=== PATIENT | male | born 1945 | race American Indian/Alaskan Native ===

== ENCOUNTER 2016-12-09 16:53 | Inpatient (IN) | payer MEDICARE ==
[2016-12-09 17:40] LABS: Basophils % (Auto) 0.6 % (0.0-1.8); Eosinophils % (Auto) 1.5 % (0.0-4.3); Hematocrit 36.3 % (35.5-45.6); Hemoglobin 11.6 gm/dl (11.8-15.2); Mean Corpuscular HGB Conc 32 % (32-34); Mean Corpuscular Hemoglobin 27 pg (28-32); Mean Corpuscular Volume 84 fl (84-94); Platelet Count 378 K/mm3 (140-440); Red Blood Count 4.32 M/mm3 (3.65-5.03); Red Cell Distribution Width 14.6 % (13.2-15.2); White Blood Count 17.1 K/mm3 (4.5-11.0)
[2016-12-09 17:51] LABS: INR 1.51 (0.87-1.13); Partial Thromboplastin Time 34.2 Sec. (24.2-36.6)
[2016-12-09 18:02] LABS: Alanine Aminotransferase 24 units/L (7-56); Albumin 2.9 g/dL (3.9-5); Albumin/Globulin Ratio 0.6 %; Alkaline Phosphatase 162 units/L (35-129); Anion Gap 16 mmol/L; Blood Urea Nitrogen 18 mg/dL (9-20); Calcium 8.9 mg/dL (8.4-10.2); Carbon Dioxide 29 mmol/L (22-30); Chloride 98.6 mmol/L (98-107); Glucose 109 mg/dL (75-100); Lipase 5 units/L (13-60); Potassium 4.5 mmol/L (3.6-5.0); Sodium 139 mmol/L (137-145); Total Protein 7.4 g/dL (6.3-8.2)
[2016-12-09 18:22] LABS: Cholesterol 130 mg/dL (50-199); HDL Cholesterol 33 mg/dL (40-59); LDL Cholesterol,Direct 85 mg/dL (50-130); Triglycerides 63 mg/dL (2-149)
[2016-12-09] MEDS ORDERED: BABY ASPIRIN PO ONE (20:00)
--- NOTE | 2016-12-09 20:00 | Emergency Department Report ---
HPI - General Chief Complaint: Dyspnea/Respdistress Time Seen by Provider: 12/09/16 19:54 - HPI HPI: The patient is a 71-year-old male who presents for evaluation of chest pain. The patient reports chest pain since earlier this morning, greater than 8 hours prior to my evaluation, midsternal in location, pressure-like in quality, moderate severity, constant since onset. The patient also reports shortness of breath bilateral lower leg swelling for the past one day. The patient denies fever, cough, hemoptysis, unilateral leg swelling, recent immobilization, history of DVT or PE. ED Past Medical Hx - Past Medical History Hx Hypertension: Yes Hx Congestive Heart Failure: Yes Hx Diabetes: Yes - Surgical History Past Surgical History?: No - Social History Smoking Status: Never Smoker Substance Use Type: None - Medications Home Medications: Home Medications Medication Instructions Recorded Confirmed Last Taken Type Aspirin [Aspirin BABY CHEW TAB] 81 mg PO QDAY #30 tab.chew 11/30/16 12/09/16 Rx Furosemide [Lasix TAB] 40 mg PO QDAY #30 tablet 11/30/16 12/09/16 12/08/16 Rx Metoprolol [Lopressor TAB] 12.5 mg PO BID #60 tablet 11/30/16 12/09/16 12/08/16 Rx Valsartan [Diovan] 160 mg PO DAILY #30 tablet 11/30/16 12/09/16 12/08/16 Rx Insulin NPH, Human [NovoLIN N] 10 units SQ QDAY 12/09/16 12/09/16 Unknown History ED Review of Systems ROS: Stated complaint: RENÉE Other details as noted in HPI Constitutional: denies: fever ENT: denies: throat or neck pain Respiratory: denies: cough reports shortness of breath Cardiovascular: reports chest pain Endocrine: denies unexplained weight loss or gain Gastrointestinal: denies: abdominal pain, nausea Genitourinary: denies: dysuria Musculoskeletal: denies: leg swelling Skin: denies: rash Neurological: denies: headache Hematological/Lymphatic: denies: easy bleeding or easy bruising Psych: denies sadness or hopelessness Physical Exam - Physical Exam Vital Signs: Vital Signs 12/09/16 12/09/16 12/09/16 16:57 18:07 18:30 Temperature 98.8 F Pulse Rate 85 80 Respiratory 18 16 10 L Rate Blood Pressure 186/87 141/72 O2 Sat by Pulse 96 96 Oximetry 12/09/16 19:01 Temperature Pulse Rate 78 Respiratory 21 Rate Blood Pressure 157/73 O2 Sat by Pulse 96 Oximetry Physical Exam: General: well-nourished, well-developed, no acute distress Head: Normocephalic, atraumatic Eyes: normal sclera ENT: Mucous membranes are pink and moist Neck: trachea midline, neck supple, No neck stiffness, no cervical adenopathy Respiratory: Breath sounds equal bilaterally, no wheezing, rales, or rhonchi Cardio: S1 and S2 present, no murmurs, rubs, gallops, capillary refill is brisk Abdomen: Normoactive bowel sounds, soft abdomen, no rigidity, no guarding or rebound tenderness Chest WALL/Back: No tenderness to palpation of the chest wall, no CVA tenderness with percussion Musc: 2+ pitting edema of bilateral lower legs Skin: No rash Neuro: no facial drooping, normal speech Psych: Normal affect ED Course Vital Signs 12/09/16 12/09/16 12/09/16 16:57 18:07 18:30 Temperature 98.8 F Pulse Rate 85 80 Respiratory 18 16 10 L Rate Blood Pressure 186/87 141/72 O2 Sat by Pulse 96 96 Oximetry 12/09/16 19:01 Temperature Pulse Rate 78 Respiratory 21 Rate Blood Pressure 157/73 O2 Sat by Pulse 96 Oximetry ED Medical Decision Making - Lab Data Result diagrams: 12/09/16 17:25 12/09/16 17:25 - Medical Decision Making The patient was seen and examined by myself. The patient is placed on a court monitor and continuous pulse ox. On initial evaluation, the patient was found to be in no distress. EKG was negative for findings suggestive of acute cardiac infarct. The patient is given IV Lasix for fluid overload and IV morphine for his pain. Labs and imaging are obtained. Chest x-ray is negative for pneumothorax, focal consolidation, pulmonary vascular congestion, pleural effusion, or other obvious acute cardiopulmonary disease process. Lab results revealed elevated troponin level 0.16, with normal renal function, and elevated BNP at 3600, trending up from previous elevated BNP. The patient is given a tablet of aspirin. The patient was reevaluated and reported that their symptoms were improved. As the patient has chest pain and risk factors for development of acute coronary event, the patient will be admitted for close cardiopulmonary monitoring, serial troponins, and evaluation by cardiology. The on-call hospitalist service was contacted. They agreed to admit the patient for further treatment and close monitoring. The ED admit order was placed. The patient was admitted in guarded condition. Critical care attestation.: If time is entered above; I have spent that time in minutes in the direct care of this critically ill patient, excluding procedure time. ED Disposition Clinical Impression: Elevated troponin I level, Acute chest pain, Leg swelling, Chronic acquired lymphedema, Peripheral edema Disposition: 09 OP ADMIT IP TO THIS HOSP Is pt being admited?: Yes Does the pt Need Aspirin: Yes Condition: Fair Time of Disposition: 19:59
[2016-12-09] MEDS ORDERED: NACL ONE (20:17)
--- NOTE | 2016-12-09 22:08 | XRay Report ---
FINAL REPORT EXAM: XR CHEST ROUTINE 2V HISTORY: Dyspnea TECHNIQUE: PA and lateral chest radiographs PRIORS: None. FINDINGS: No mediastinal shift. Cardiomegaly. Ill-defined right lower lung opacity. No pneumothorax or effusion. No acute skeletal finding. IMPRESSION: Ill-defined right lower lung opacity may represent atelectasis or infection. Mild cardiomegaly. Correlation for clinical findings of heart failure is requested.
[2016-12-09] MEDS ORDERED: MORPHINE IV ONE (22:18)
[2016-12-09] MEDS ORDERED: LASIX IV ONE (22:18)
[2016-12-09] MEDS ORDERED: ZOFRAN IV PRN (23:46)
[2016-12-09] MEDS ORDERED: MILK OF MAGNESIA PO PRN (23:46)
[2016-12-09] MEDS ORDERED: DULCOLAX PR PRN (23:46)
[2016-12-09] MEDS ORDERED: TYLENOL PO PRN (23:46)
--- NOTE | 2016-12-09 23:48 | History and Physical Report ---
History of Present Illness Date of examination: 12/09/16 History of present illness: 70 year old man with Hypertension, Diabetes, chroniv lymphedema comes to the emergency room with complaints of shortness of breath, PND, orthopnea that started today. The patient was dischrged on monday. Also complaining of chest pain located in the epigastric area, sharp, intermittent for 5 minutes, intensity 5/10, no radiation, he cannot identify exacerbating or relieving factors. Denies diaphoresis, palpitation, admits to nausea review of systems Constitutional: no fever, no chills, no weight loss Ears, eyes, nose, mouth and throat: no nasal congestion, no nasal discharge, no sinus pressure, no vision change, no red eye. Neck: No neck pain or rigidity. Cardiovascular: no palpitations, +leg swelling Respiratory: No cough, no congestion, no wheezing Gastrointestinal: abdominal pain, hematochezia, no nausea, no vomiting Genitourinary : no dysuria, frequency , no hematuria Musculoskeletal: no joint swelling or muscle ache Integumentary: no rash, no pruritis Neurological: no parathesias, no numbness, no focal weakness Endocrine: no cold or heat intolerance, no polyuria or polydipsia Hematologic/Lymphatic: no easy bruising, no easy bleeding, no gland swelling Allergic/Immunologic: no urticaria, no angioedema. PAST SURGICAL HISTORY:None SOCIAL HISTORY:Denies alcohol, tobacco, drugs FAMILY HISTORY:Hypertension Medications and Allergies Allergies Allergy/AdvReac Type Severity Reaction Status Date / Time No Known Allergies Allergy Unverified 11/27/16 23:04 Home Medications Medication Instructions Recorded Confirmed Last Taken Type Aspirin [Aspirin BABY CHEW TAB] 81 mg PO QDAY #30 tab.chew 11/30/16 12/09/16 Rx Furosemide [Lasix TAB] 40 mg PO QDAY #30 tablet 11/30/16 12/09/16 12/08/16 Rx Metoprolol [Lopressor TAB] 12.5 mg PO BID #60 tablet 11/30/16 12/09/16 12/08/16 Rx Valsartan [Diovan] 160 mg PO DAILY #30 tablet 11/30/16 12/09/16 12/08/16 Rx Insulin NPH, Human [NovoLIN N] 10 units SQ QDAY 12/09/16 12/09/16 Unknown History Exam - Physical Exam Narrative exam: Gen. appearance: Patient lying in bed, no apparent distress HEENT: Normocephalic, atraumatic, pupils equally round and reactive to light, extraocular movement intact, and no sclericterus,. No JVD or thyromegaly or nodule,neck supple, no carotid bruit ,mucous membranes moist, no exudate or erythema Heart: S1, S2, regular rate and rhythm Lungs: Clear bilaterally, breathing comfortable Abdomen: Positive bowel sounds, nontender, nondistended, no organomegaly Extremity: + edema, no cyanosis, clubbing Skin: No rash, nodules, warm, dry Neuro: Oriented 3, cranial nerves II-12 intact, speech is fluent, motor and sensory intact - Constitutional Vitals: Temp Pulse Resp BP Pulse Ox 98.8 F 88 17 184/80 95 12/09/16 16:57 12/09/16 22:01 12/09/16 22:01 12/09/16 23:01 12/09/16 23:01 Results - Labs CBC & Chem 7: 12/10/16 04:41 12/09/16 17:25 Labs: Abnormal lab results 12/09/16 12/09/16 12/09/16 Range/Units 17:25 17:25 17:25 WBC 17.1 H (4.5-11.0) K/mm3 Hgb 11.6 L (11.8-15.2) gm/dl MCH 27 L (28-32) pg Lymph % (Auto) 8.3 L (13.4-35.0) % [place] # 1.0 H (0.0-0.8) K/mm3 Seg Neutrophils % 83.7 H (40.0-70.0) % Seg Neutrophils # 14.3 H (1.8-7.7) K/mm3 PT 18.2 H (12.2-14.9) Sec. INR 1.51 H (0.87-1.13) D-Dimer 622.72 H (0-234) ng/mlDDU Glucose 109 H (75-100) mg/dL Alkaline Phosphatase 162 H (35-129) units/L Troponin T 0.167 H* (0.00-0.029) ng/mL NT-Pro-B Natriuret Pep (0-900) pg/mL Albumin 2.9 L (3.9-5) g/dL HDL Cholesterol 33 L (40-59) mg/dL Lipase 5 L (13-60) units/L // Range/Units 17:25 WBC (4.5-11.0) K/mm3 Hgb (11.8-15.2) gm/dl MCH (28-32) pg Lymph % (Auto) (13.4-35.0) % [place] # (0.0-0.8) K/mm3 Seg Neutrophils % (40.0-70.0) % Seg Neutrophils # (1.8-7.7) K/mm3 PT (12.2-14.9) Sec. INR (0.87-1.13) D-Dimer (0-234) ng/mlDDU Glucose (75-100) mg/dL Alkaline Phosphatase (35-129) units/L Troponin T (0.00-0.029) ng/mL NT-Pro-B Natriuret Pep 3789 H (0-900) pg/mL Albumin (3.9-5) g/dL HDL Cholesterol (40-59) mg/dL Lipase (13-60) units/L - Imaging and Cardiology EKG: image reviewed Chest x-ray: image reviewed Assessment and Plan Shortness of breath, unclear etiology Chest paim Leukocytosis Hypertension Diabetes Admit to medicine Check cardiac enzymes,Consult cardiology CT chest pending, check stess test if CT negative obtain blood culture, urinalysis Check fingersticks and initiate insulin sliding scale continue outpatient medications , start dvt prophalaxis Please follow CT chest
[2016-12-10] MEDS ORDERED: BABY ASPIRIN ONE (00:14)
[2016-12-10 05:58] LABS: Basophils % (Auto) 0.5 % (0.0-1.8); Eosinophils % (Auto) 2.3 % (0.0-4.3); Hematocrit 33.3 % (35.5-45.6); Hemoglobin 10.8 gm/dl (11.8-15.2); Mean Corpuscular HGB Conc 32 % (32-34); Mean Corpuscular Hemoglobin 27 pg (28-32); Mean Corpuscular Volume 83 fl (84-94); Platelet Count 351 K/mm3 (140-440); Red Blood Count 3.99 M/mm3 (3.65-5.03); Red Cell Distribution Width 14.8 % (13.2-15.2); White Blood Count 14.1 K/mm3 (4.5-11.0)
[2016-12-10 06:08] LABS: Bilirubin,Urine NEG (Negative); Blood,Urine SM (Negative); Ketones,Urine NEG (Negative); Leukocyte Esterase,Urine TR (Negative); Nitrite,Urine NEG (Negative); Protein,Urine <15 mg/dL mg/dL (Negative); Urobilinogen,Urine < 2.0 mg/dL (<2.0)
[2016-12-10] MEDS: LASIX IV SCH ×2 (06:21→18:12)
[2016-12-10 06:40] LABS: Anion Gap 16 mmol/L; Blood Urea Nitrogen 18 mg/dL (9-20); Calcium 8.7 mg/dL (8.4-10.2); Carbon Dioxide 30 mmol/L (22-30); Chloride 100.2 mmol/L (98-107); Glucose 91 mg/dL (75-100); Potassium 4.3 mmol/L (3.6-5.0); Sodium 142 mmol/L (137-145)
[2016-12-10] MEDS: LOVENOX SUB-Q SCH ×2 (08:35→16:38)
[2016-12-10] MEDS: ZESTRIL PO SCH ×2 (08:36→16:38)
[2016-12-10] MEDS: COREG PO SCH ×3 (08:37→21:51)
--- NOTE | 2016-12-10 09:01 | Cat Scan Report ---
FINAL REPORT PROCEDURE: CT ANGIO CHEST TECHNIQUE: Computerized tomographic angiography of the chest was performed after the IV injection of iodinated nonionic contrast including image processing. The image data was postprocessed using 2-dimensional multiplanar reformatted (MPR) and 3-dimensional (MIP and/or volume rendered) techniques. HISTORY: chest pain COMPARISON: Chest x-ray 12/09/2016 FINDINGS: Enlarged heterogeneous thyroid gland canal on the right. Recommend thyroid ultrasound correlation. Extension of the thyromegaly into the anterior superior mediastinum. Heart and pericardium: Normal. Thoracic aorta: Normal. Pulmonary vasculature: Normal. Lymph nodes: Scattered mild lymphadenopathy in the mediastinum and hilar areas measuring 1 x 2 centimeters in the right suprahilar area left pretracheal and subcarinal regions Lungs: Mild pulmonary emphysema with lower lung zone fibrosis and or slight atelectatic change left greater than right Pleural space: No effusion, thickening, or pneumothorax. Musculoskeletal structures: No significant abnormality. Degenerative changes thoracic spine Upper abdominal structures: Diffuse fatty infiltration of liver. Small hiatal hernia. Diffuse pancreatic atrophy. Mild stranding around the left kidney, indeterminate. IMPRESSION: No evidence of PE seen at this time Details above Followup is advised
--- NOTE | 2016-12-10 11:49 | Consultation ---
History of Present Illness Consult date: 12/10/16 Consult reason: shortness of breath History of present illness: Patient's a 71-year-old man who presents to the hospital with shortness of breath and weakness. There was no chest pain. His symptoms are poorly characterized. In the hospital, his serial ECGs are normal sinus rhythm, normal ECG with no ischemic changes. Cardiac enzymes are equivocal, with normal CK and CK-MB but borderline troponin increase. It'll be recalled that he was hospitalized here 2 weeks ago, with chronic edema of bilateral lower extremities and uncontrolled hypertension. On this presentation, his blood pressure remains uncontrolled 170-180 systolic, but his lower extremity edema has completely resolved. Echocardiogram 2 weeks ago revealed normal left ventricle systolic function, ejection fraction 55-60%. Currently the patient is on the telemetry floor, looks and feels comfortable and no cardiac complaints at this time. Comorbidities include a chronic ulcer of the left lower extremity. Past History Past Medical History: hypertension Medications and Allergies Allergies Allergy/AdvReac Type Severity Reaction Status Date / Time No Known Allergies Allergy Unverified 11/27/16 23:04 Home Medications Medication Instructions Recorded Confirmed Last Taken Type Aspirin [Aspirin BABY CHEW TAB] 81 mg PO QDAY #30 tab.chew 11/30/16 12/09/16 Rx Furosemide [Lasix TAB] 40 mg PO QDAY #30 tablet 11/30/16 12/09/16 12/08/16 Rx Metoprolol [Lopressor TAB] 12.5 mg PO BID #60 tablet 11/30/16 12/09/16 12/08/16 Rx Valsartan [Diovan] 160 mg PO DAILY #30 tablet 11/30/16 12/09/16 12/08/16 Rx Insulin NPH, Human [NovoLIN N] 10 units SQ QDAY 12/09/16 12/09/16 Unknown History Active Meds: Active Medications Acetaminophen (Tylenol) 650 mg PO Q4H PRN PRN Reason: Pain MILD(1-3)/Fever >100.5/WINTER Bisacodyl (Dulcolax) 10 mg SD QDAY PRN PRN Reason: Constipation unrelieved by MOM Carvedilol (Coreg) 3.125 mg PO BID [facility] Last Admin: 12/10/16 08:37 Dose: 3.125 mg Enoxaparin Sodium (Lovenox) 40 mg SUB-Q QDAY [facility] Last Admin: 12/10/16 08:35 Dose: 40 mg Furosemide (Lasix) 40 mg IV BID@0600,1800 [facility] Last Admin: 12/10/16 06:21 Dose: 40 mg Lisinopril (Zestril) 2.5 mg PO QDAY [facility] Last Admin: 12/10/16 08:36 Dose: 2.5 mg Magnesium Hydroxide (Milk Of Magnesia) 30 ml PO Q4H PRN PRN Reason: Constipation Ondansetron HCl (Zofran) 4 mg IV Q8H PRN PRN Reason: N/V unrelieved by Reglan Review of Systems Cardiovascular: edema, shortness of breath, no chest pain, no orthopnea, no palpitations, no rapid/irregular heart beat, no syncope, no lightheadedness Physical Examination Vital Signs Temp Pulse Resp BP Pulse Ox 98.8 F 85 18 186/87 96 12/09/16 16:57 12/09/16 16:57 12/09/16 16:57 12/09/16 16:57 12/09/16 16:57 General appearance: no acute distress HEENT: Positive: PERRL Neck: Positive: neck supple Cardiac: Positive: Reg Rate and Rhythm Lungs: Positive: Decreased Breath Sounds Neuro: Positive: Grossly Intact Abdomen: Positive: Soft Male genitourinary: Positive: deferred Skin: Positive: Clear Extremities: Absent: edema Results 12/10/16 04:41 12/10/16 04:41 CBC 12/10/16 Range/Units 04:41 WBC 14.1 H (4.5-11.0) K/mm3 RBC 3.99 (3.65-5.03) M/mm3 Hgb 10.8 L (11.8-15.2) gm/dl Hct 33.3 L (35.5-45.6) % Plt Count 351 (140-440) K/mm3 Lymph # 1.6 (1.2-5.4) K/mm3 [place] # 1.0 H (0.0-0.8) K/mm3 Eos # 0.3 (0.0-0.4) K/mm3 Baso # 0.1 (0.0-0.1) K/mm3 Comprehensive Metabolic Panel 12/10/16 Range/Units 04:41 Sodium 142 (137-145) mmol/L Potassium 4.3 (3.6-5.0) mmol/L Chloride 100.2 (98-107) mmol/L Carbon Dioxide 30 (22-30) mmol/L BUN 18 (9-20) mg/dL Creatinine 1.0 (0.8-1.5) mg/dL Glucose 91 (75-100) mg/dL Calcium 8.7 (8.4-10.2) mg/dL EKG interpretations - Telemetry EKG Rhythm: Sinus Rhythm Assessment and Plan - Patient Problems (1) Shortness of breath Current Visit: Yes Status: Acute Plan to address problem: Echocardiogram 2 weeks ago revealed normal left ventricular systolic function. We will proceed with cardiac ischemic workup prior to discharge, Persantine thallium stress test for further assessment. (2) Uncontrolled hypertension Current Visit: No Status: Acute Plan to address problem: We will optimize blood pressure control, review his current medications.
--- NOTE | 2016-12-10 12:01 | Progress Note ---
Assessment and Plan Assessment and plan: Sepsis. Patient will be placed on a sepsis pathway. Patient released criteria given the leukocytosis and right lower lobe pneumonia. Follow-up lactic acid levels, blood and sputum cultures. Right lower lobe pneumonia. Patient will be placed on pneumonia pathway and treated for healthcare associated pneumonia given the recent hospitalization. Continue IV antibiotics. Dyspnea. Etiology secondary to above. Accelerated hypertension. Resume all antihypertensives medications. Start Hydralazine IV as needed. Chest pain. Cardiology following. Diabetes mellitus type 2. Continue sliding-scale Accu-Cheks. History Interval history: Patient still complains of shortness of breath. Hospitalist Physical - Constitutional Vitals: Temp Pulse Resp BP Pulse Ox 99.2 F 80 20 190/84 95 12/10/16 08:18 12/10/16 08:36 12/10/16 08:18 12/10/16 08:36 12/10/16 09:28 General appearance: Present: no acute distress - EENT Eyes: Present: PERRL, EOM intact ENT: hearing intact, clear oral mucosa, dentition normal - Neck Neck: Present: supple, normal ROM - Respiratory Respiratory effort: normal Respiratory: bilateral: CTA - Cardiovascular Rhythm: regular Heart Sounds: Present: S1 & S2. Absent: gallop, rub - Extremities Extremities: no ischemia, No edema, Full ROM - Abdominal General gastrointestinal: soft, non-tender, non-distended, normal bowel sounds - Integumentary Integumentary: Present: clear, warm, dry - Neurologic Neurologic: CNII-XII intact, moves all extremities Results - Labs CBC & Chem 7: 12/10/16 04:41 12/10/16 04:41 Labs: Laboratory Last Values WBC 14.1 K/mm3 (4.5-11.0) H 12/10/16 04:41 RBC 3.99 M/mm3 (3.65-5.03) 12/10/16 04:41 Hgb 10.8 gm/dl (11.8-15.2) L 12/10/16 04:41 Hct 33.3 % (35.5-45.6) L 12/10/16 04:41 MCV 83 fl (84-94) L 12/10/16 04:41 MCH 27 pg (28-32) L 12/10/16 04:41 MCHC 32 % (32-34) 12/10/16 04:41 RDW 14.8 % (13.2-15.2) 12/10/16 04:41 Plt Count 351 K/mm3 (140-440) 12/10/16 04:41 Lymph % (Auto) 11.2 % (13.4-35.0) L 12/10/16 04:41 [place] % (Auto) 7.2 % (0.0-7.3) 12/10/16 04:41 Eos % (Auto) 2.3 % (0.0-4.3) 12/10/16 04:41 Baso % (Auto) 0.5 % (0.0-1.8) 12/10/16 04:41 Lymph # 1.6 K/mm3 (1.2-5.4) 12/10/16 04:41 [place] # 1.0 K/mm3 (0.0-0.8) H 12/10/16 04:41 Eos # 0.3 K/mm3 (0.0-0.4) 12/10/16 04:41 Baso # 0.1 K/mm3 (0.0-0.1) 12/10/16 04:41 Seg Neutrophils % 78.8 % (40.0-70.0) H 12/10/16 04:41 Seg Neutrophils # 11.1 K/mm3 (1.8-7.7) H 12/10/16 04:41 PT 18.2 Sec. (12.2-14.9) H 12/09/16 17:25 INR 1.51 (0.87-1.13) H 12/09/16 17:25 APTT 34.2 Sec. (24.2-36.6) 12/09/16 17:25 D-Dimer 622.72 ng/mlDDU (0-234) H 12/09/16 17:25 Sodium 142 mmol/L (137-145) 12/10/16 04:41 Potassium 4.3 mmol/L (3.6-5.0) 12/10/16 04:41 Chloride 100.2 mmol/L (98-107) 12/10/16 04:41 Carbon Dioxide 30 mmol/L (22-30) 12/10/16 04:41 Anion Gap 16 mmol/L 12/10/16 04:41 BUN 18 mg/dL (9-20) 12/10/16 04:41 Creatinine 1.0 mg/dL (0.8-1.5) 12/10/16 04:41 Estimated GFR > 60 ml/min 12/10/16 04:41 BUN/Creatinine Ratio 18.00 % 12/10/16 04:41 Glucose 91 mg/dL (75-100) 12/10/16 04:41 Calcium 8.7 mg/dL (8.4-10.2) 12/10/16 04:41 Magnesium 1.80 mg/dL (1.7-2.3) 12/09/16 17:25 Total Bilirubin 0.70 mg/dL (0.1-1.2) 12/09/16 17:25 AST 19 units/L (5-40) 12/09/16 17:25 ALT 24 units/L (7-56) 12/09/16 17:25 Alkaline Phosphatase 162 units/L (35-129) H 12/09/16 17:25 Troponin T 0.167 ng/mL (0.00-0.029) H* 12/09/16 17:25 NT-Pro-B Natriuret Pep 3789 pg/mL (0-900) H 12/09/16 17:25 Total Protein 7.4 g/dL (6.3-8.2) 12/09/16 17:25 Albumin 2.9 g/dL (3.9-5) L 12/09/16 17:25 Albumin/Globulin Ratio 0.6 % 12/09/16 17:25 Triglycerides 63 mg/dL (2-149) 12/09/16 17:25 Cholesterol 130 mg/dL (50-199) 12/09/16 17:25 LDL Cholesterol Direct 85 mg/dL (50-130) 12/09/16 17:25 HDL Cholesterol 33 mg/dL (40-59) L 12/09/16 17:25 Cholesterol/HDL Ratio 3.93 % 12/09/16 17:25 Lipase 5 units/L (13-60) L 12/09/16 17:25 Urine Color Straw (Yellow) 12/10/16 04:21 Urine Turbidity Clear (Clear) 12/10/16 04:21 Urine pH 5.0 (5.0-7.0) 12/10/16 04:21 Ur Specific [place] 1.006 (1.003-1.030) 12/10/16 04:21 Urine Protein <15 mg/dl mg/dL (Negative) 12/10/16 04:21 Urine Glucose (UA) Neg mg/dL (Negative) 12/10/16 04:21 Urine Ketones Neg mg/dL (Negative) 12/10/16 04:21 Urine Blood Sm (Negative) 12/10/16 04:21 Urine Nitrite Neg (Negative) 12/10/16 04:21 Urine Bilirubin Neg (Negative) 12/10/16 04:21 Urine Urobilinogen < 2.0 mg/dL (<2.0) 12/10/16 04:21 Ur Leukocyte Esterase Tr (Negative) 12/10/16 04:21 Urine WBC (Auto) 13.0 /HPF (0.0-6.0) H 12/10/16 04:21 Urine RBC (Auto) 1.0 /HPF (0.0-6.0) 12/10/16 04:21 Hyaline Casts 1 /LPF 12/10/16 04:21
[2016-12-10 14:15] LABS: ISTAT Base Excess 10; ISTAT DEVICE 0; ISTAT HCO3 33.4; ISTAT PCO2 44.9 (35-45); ISTAT PH 7.479 (7.35-7.45); ISTAT PO2 64 (80-105); ISTAT SO2 93; ISTAT TCO2 35
[2016-12-10] MEDS: DIOVAN PO SCH ×2 (16:41→21:52)
[2016-12-10 16:44] LABS: Bilirubin,Urine NEG (Negative); Blood,Urine MOD (Negative); Ketones,Urine NEG (Negative); Leukocyte Esterase,Urine SM (Negative); Mucus,Urine FEW /HPF; Nitrite,Urine NEG (Negative)
[2016-12-10] MEDS: ZOSYN/NS 4.5GM/100ML 4.5 GM/100 ML VIAL IV SCH (18:11)
[2016-12-11] MEDS: ZOSYN/NS 4.5GM/100ML 4.5 GM/100 ML VIAL IV SCH ×4 (00:14→19:22)
[2016-12-11] MEDS: LASIX IV SCH ×2 (06:10→19:22)
[2016-12-11 07:20] LABS: Basophils % (Auto) 0.4 % (0.0-1.8); Eosinophils % (Auto) 1.8 % (0.0-4.3); Hematocrit 33.4 % (35.5-45.6); Hemoglobin 10.8 gm/dl (11.8-15.2); Mean Corpuscular HGB Conc 32 % (32-34); Mean Corpuscular Hemoglobin 27 pg (28-32); Mean Corpuscular Volume 83 fl (84-94); Platelet Count 366 K/mm3 (140-440); Red Blood Count 4.04 M/mm3 (3.65-5.03); Red Cell Distribution Width 14.6 % (13.2-15.2); White Blood Count 13.7 K/mm3 (4.5-11.0)
[2016-12-11 07:25] LABS: Anion Gap 17 mmol/L; BUN/Creatinine Ratio 15.38; Blood Urea Nitrogen 20 mg/dL (9-20); Calcium 8.4 mg/dL (8.4-10.2); Carbon Dioxide 30 mmol/L (22-30); Chloride 97.5 mmol/L (98-107); Glucose 158 mg/dL (75-100); Sodium 140 mmol/L (137-145)
--- NOTE | 2016-12-11 11:08 | Progress Note ---
Assessment and Plan - Patient Problems (1) Shortness of breath Current Visit: Yes Status: Acute Plan to address problem: We will proceed with Persantine thallium stress test for cardiac ischemia evaluation. (2) Uncontrolled hypertension Current Visit: No Status: Acute Plan to address problem: Blood pressure control is improved significantly with valsartan therapy. If needed, we will add Procardia XL 60 mg to blood pressure regimen. Subjective Date of service: 12/11/16 Interval history: Patient is comfortable in no acute distress, no further chest pain, no new cardiac complaints. Objective Vital Signs Temp Pulse Resp BP Pulse Ox 12/11/16 08:30 99.0 F 68 20 163/74 95 12/11/16 04:00 98.2 F 69 18 148/75 98 12/11/16 00:00 98.5 F 71 18 142/64 97 12/10/16 22:00 97 12/10/16 20:00 98.8 F 79 18 155/68 98 12/10/16 18:09 101.3 F H 84 20 174/78 97 12/10/16 16:41 160/90 - Physical Examination General: No Apparent Distress HEENT: Positive: PERRL Neck: Positive: neck supple Cardiac: Positive: Reg Rate and Rhythm Lungs: Positive: Decreased Breath Sounds Neuro: Positive: Grossly Intact Abdomen: Positive: Soft Skin: Positive: Clear Extremities: Absent: edema - Labs and Meds CBC 12/11/16 Range/Units 06:26 WBC 13.7 H (4.5-11.0) K/mm3 RBC 4.04 (3.65-5.03) M/mm3 Hgb 10.8 L (11.8-15.2) gm/dl Hct 33.4 L (35.5-45.6) % Plt Count 366 (140-440) K/mm3 Lymph # 1.5 (1.2-5.4) K/mm3 [place] # 1.2 H (0.0-0.8) K/mm3 Eos # 0.2 (0.0-0.4) K/mm3 Baso # 0.1 (0.0-0.1) K/mm3 Comprehensive Metabolic Panel 12/11/16 Range/Units 06:26 Sodium 140 (137-145) mmol/L Potassium 4.0 (3.6-5.0) mmol/L Chloride 97.5 L (98-107) mmol/L Carbon Dioxide 30 (22-30) mmol/L BUN 20 (9-20) mg/dL Creatinine 1.3 (0.8-1.5) mg/dL Glucose 158 H (75-100) mg/dL Calcium 8.4 (8.4-10.2) mg/dL - Imaging and Cardiology EKG: image reviewed
[2016-12-11] MEDS: PROCARDIA XL PO SCH (11:33)
[2016-12-11] MEDS: DIOVAN PO SCH ×2 (11:33→22:45)
[2016-12-11] MEDS: COREG PO SCH ×2 (11:33→22:50)
[2016-12-11] MEDS: LOVENOX SUB-Q SCH (11:34)
[2016-12-11] MEDS: LEVAQUIN 750MG/150ML 750 MG/150 ML BAG IV SCH (11:48)
--- NOTE | 2016-12-11 12:45 | Progress Note ---
Assessment and Plan Assessment and plan: Sepsis. Continue sepsis pathway. Follow-up lactic acid levels, blood and sputum cultures. Right lower lobe healthcare associated pneumonia. Continue pneumonia pathway. Continue IV antibiotics. Dyspnea. Etiology secondary to above. Accelerated hypertension. Cont. antihypertensives medications. Cont. Hydralazine IV as needed. Chest pain. Cardiology following. Plans are to proceed with stress test for cardiac ischemia evaluation. Diabetes mellitus type 2. Continue sliding-scale and Accu-Cheks. History Interval history: Patient still complains of shortness of breath. Hospitalist Physical - Constitutional Vitals: Temp Pulse Resp BP Pulse Ox 99.0 F 68 20 163/74 95 12/11/16 08:30 12/11/16 08:30 12/11/16 08:30 12/11/16 08:30 12/11/16 08:30 General appearance: Present: no acute distress - EENT Eyes: Present: PERRL, EOM intact ENT: hearing intact, clear oral mucosa, dentition normal - Neck Neck: Present: supple, normal ROM - Respiratory Respiratory effort: normal Respiratory: bilateral: diminished, rhonchi - Cardiovascular Rhythm: regular Heart Sounds: Present: S1 & S2. Absent: gallop, rub - Extremities Extremities: no ischemia, No edema, Full ROM - Abdominal General gastrointestinal: soft, non-tender, non-distended, normal bowel sounds - Integumentary Integumentary: Present: clear, warm, dry - Neurologic Neurologic: CNII-XII intact, moves all extremities Results - Labs CBC & Chem 7: 12/11/16 06:26 12/11/16 06:26 Labs: Laboratory Last Values WBC 13.7 K/mm3 (4.5-11.0) H 12/11/16 06:26 RBC 4.04 M/mm3 (3.65-5.03) 12/11/16 06:26 Hgb 10.8 gm/dl (11.8-15.2) L 12/11/16 06:26 Hct 33.4 % (35.5-45.6) L 12/11/16 06:26 MCV 83 fl (84-94) L 12/11/16 06:26 MCH 27 pg (28-32) L 12/11/16 06:26 MCHC 32 % (32-34) 12/11/16 06:26 RDW 14.6 % (13.2-15.2) 12/11/16 06:26 Plt Count 366 K/mm3 (140-440) 12/11/16 06:26 Lymph % (Auto) 10.6 % (13.4-35.0) L 12/11/16 06:26 [place] % (Auto) 8.8 % (0.0-7.3) H 12/11/16 06:26 Eos % (Auto) 1.8 % (0.0-4.3) 12/11/16 06:26 Baso % (Auto) 0.4 % (0.0-1.8) 12/11/16 06:26 Lymph # 1.5 K/mm3 (1.2-5.4) 12/11/16 06:26 [place] # 1.2 K/mm3 (0.0-0.8) H 12/11/16 06:26 Eos # 0.2 K/mm3 (0.0-0.4) 12/11/16 06:26 Baso # 0.1 K/mm3 (0.0-0.1) 12/11/16 06:26 Seg Neutrophils % 78.4 % (40.0-70.0) H 12/11/16 06:26 Seg Neutrophils # 10.7 K/mm3 (1.8-7.7) H 12/11/16 06:26 PT 18.2 Sec. (12.2-14.9) H 12/09/16 17:25 INR 1.51 (0.87-1.13) H 12/09/16 17:25 APTT 34.2 Sec. (24.2-36.6) 12/09/16 17:25 D-Dimer 622.72 ng/mlDDU (0-234) H 12/09/16 17:25 POC ABG pH 7.479 (7.35-7.45) H 12/10/16 14:02 POC ABG pCO2 44.9 (35-45) 12/10/16 14:02 POC ABG pO2 64 (80-105) L 12/10/16 14:02 POC ABG HCO3 33.4 12/10/16 14:02 POC ABG Total CO2 35 12/10/16 14:02 POC ABG O2 Sat 93 12/10/16 14:02 POC ABG Base Excess 10 12/10/16 14:02 FiO2 21 % 12/10/16 14:02 Sodium 140 mmol/L (137-145) 12/11/16 06:26 Potassium 4.0 mmol/L (3.6-5.0) 12/11/16 06:26 Chloride 97.5 mmol/L (98-107) L 12/11/16 06:26 Carbon Dioxide 30 mmol/L (22-30) 12/11/16 06:26 Anion Gap 17 mmol/L 12/11/16 06:26 BUN 20 mg/dL (9-20) 12/11/16 06:26 Creatinine 1.3 mg/dL (0.8-1.5) 12/11/16 06:26 Estimated GFR > 60 ml/min 12/11/16 06:26 BUN/Creatinine Ratio 15.38 % 12/11/16 06:26 Glucose 158 mg/dL (75-100) H 12/11/16 06:26 POC Glucose 183 (70-105) H 12/11/16 09:08 Calcium 8.4 mg/dL (8.4-10.2) 12/11/16 06:26 Magnesium 1.80 mg/dL (1.7-2.3) 12/09/16 17:25 Total Bilirubin 0.70 mg/dL (0.1-1.2) 12/09/16 17:25 AST 19 units/L (5-40) 12/09/16 17:25 ALT 24 units/L (7-56) 12/09/16 17:25 Alkaline Phosphatase 162 units/L (35-129) H 12/09/16 17:25 Troponin T 0.167 ng/mL (0.00-0.029) H* 12/09/16 17:25 NT-Pro-B Natriuret Pep 3789 pg/mL (0-900) H 12/09/16 17:25 Total Protein 7.4 g/dL (6.3-8.2) 12/09/16 17:25 Albumin 2.9 g/dL (3.9-5) L 12/09/16 17:25 Albumin/Globulin Ratio 0.6 % 12/09/16 17:25 Triglycerides 63 mg/dL (2-149) 12/09/16 17:25 Cholesterol 130 mg/dL (50-199) 12/09/16 17:25 LDL Cholesterol Direct 85 mg/dL (50-130) 12/09/16 17:25 HDL Cholesterol 33 mg/dL (40-59) L 12/09/16 17:25 Cholesterol/HDL Ratio 3.93 % 12/09/16 17:25 Lipase 5 units/L (13-60) L 12/09/16 17:25 Urine Color Yellow (Yellow) 12/10/16 16:30 Urine Turbidity Clear (Clear) 12/10/16 16:30 Urine pH 6.0 (5.0-7.0) 12/10/16 16:30 Ur Specific [place] 1.031 (1.003-1.030) H 12/10/16 16:30 Urine Protein 100 mg/dl mg/dL (Negative) 12/10/16 16:30 Urine Glucose (UA) Neg mg/dL (Negative) 12/10/16 16:30 Urine Ketones Neg mg/dL (Negative) 12/10/16 16:30 Urine Blood Mod (Negative) 12/10/16 16:30 Urine Nitrite Neg (Negative) 12/10/16 16:30 Urine Bilirubin Neg (Negative) 12/10/16 16:30 Urine Urobilinogen 4.0 mg/dL (<2.0) 12/10/16 16:30 Ur Leukocyte Esterase Sm (Negative) 12/10/16 16:30 Urine WBC (Auto) 22.0 /HPF (0.0-6.0) H 12/10/16 16:30 Urine RBC (Auto) 7.0 /HPF (0.0-6.0) 12/10/16 16:30 U Epithel Cells (Auto) < 1.0 /HPF (0-13.0) 12/10/16 16:30 Hyaline Casts 1 /LPF 12/10/16 04:21 Urine Mucus Few /HPF 12/10/16 16:30 Blood Type O POSITIVE 12/10/16 12:26 Antibody Screen TNR 12/10/16 12:26 ADDIE Antibody Screen Negative 12/10/16 12:26
[2016-12-12] MEDS: ZOSYN/NS 4.5GM/100ML 4.5 GM/100 ML VIAL IV SCH ×3 (00:36→20:11)
[2016-12-12] MEDS: LASIX IV SCH ×2 (06:25→17:11)
[2016-12-12 07:08] LABS: Basophils % (Auto) 0.4 % (0.0-1.8); Eosinophils % (Auto) 2.7 % (0.0-4.3); Hematocrit 34.1 % (35.5-45.6); Hemoglobin 10.9 gm/dl (11.8-15.2); Mean Corpuscular HGB Conc 32 % (32-34); Mean Corpuscular Hemoglobin 27 pg (28-32); Mean Corpuscular Volume 84 fl (84-94); Platelet Count 408 K/mm3 (140-440); Red Blood Count 4.06 M/mm3 (3.65-5.03); Red Cell Distribution Width 14.6 % (13.2-15.2); White Blood Count 12.2 K/mm3 (4.5-11.0)
[2016-12-12 07:18] LABS: Anion Gap 17 mmol/L; Blood Urea Nitrogen 21 mg/dL (9-20); Calcium 8.4 mg/dL (8.4-10.2); Carbon Dioxide 31 mmol/L (22-30); Chloride 97.6 mmol/L (98-107); Glucose 153 mg/dL (75-100); Potassium 4.6 mmol/L (3.6-5.0); Sodium 141 mmol/L (137-145)
[2016-12-12] MEDS ORDERED: LEXISCAN IV ONE ×2 (10:10)
--- NOTE | 2016-12-12 11:42 | Progress Note ---
Assessment and Plan Assessment and plan: Sepsis. Continue sepsis pathway. Follow-up lactic acid levels, blood and sputum cultures. Right lower lobe healthcare associated pneumonia. Continue pneumonia pathway. Continue IV antibiotics. Dyspnea. Etiology secondary to above. Accelerated hypertension. Cont. antihypertensives medications. Cont. Hydralazine IV as needed. Chest pain. Cardiology following. Plans are to proceed with stress test for cardiac ischemia evaluation this morning. Diabetes mellitus type 2. Continue sliding-scale and Accu-Cheks. History Interval history: Patient still complains of shortness of breath and chest pain Hospitalist Physical - Constitutional Vitals: Temp Pulse Resp BP Pulse Ox 97.7 F 65 18 140/69 98 12/12/16 08:00 12/12/16 08:00 12/12/16 08:00 12/12/16 08:00 12/12/16 08:00 General appearance: Present: no acute distress - EENT Eyes: Present: PERRL, EOM intact ENT: hearing intact, clear oral mucosa, dentition normal - Neck Neck: Present: supple, normal ROM - Respiratory Respiratory effort: normal Respiratory: bilateral: CTA - Cardiovascular Rhythm: regular Heart Sounds: Present: S1 & S2. Absent: gallop, rub - Extremities Extremities: no ischemia, No edema, Full ROM - Abdominal General gastrointestinal: soft, non-tender, non-distended, normal bowel sounds - Integumentary Integumentary: Present: clear, warm, dry - Neurologic Neurologic: CNII-XII intact, moves all extremities Results - Labs CBC & Chem 7: 12/12/16 06:04 12/12/16 06:04 Labs: Laboratory Last Values WBC 12.2 K/mm3 (4.5-11.0) H 12/12/16 06:04 RBC 4.06 M/mm3 (3.65-5.03) 12/12/16 06:04 Hgb 10.9 gm/dl (11.8-15.2) L 12/12/16 06:04 Hct 34.1 % (35.5-45.6) L 12/12/16 06:04 MCV 84 fl (84-94) 12/12/16 06:04 MCH 27 pg (28-32) L 12/12/16 06:04 MCHC 32 % (32-34) 12/12/16 06:04 RDW 14.6 % (13.2-15.2) 12/12/16 06:04 Plt Count 408 K/mm3 (140-440) 12/12/16 06:04 Lymph % (Auto) 13.5 % (13.4-35.0) 12/12/16 06:04 [place] % (Auto) 9.9 % (0.0-7.3) H 12/12/16 06:04 Eos % (Auto) 2.7 % (0.0-4.3) 12/12/16 06:04 Baso % (Auto) 0.4 % (0.0-1.8) 12/12/16 06:04 Lymph # 1.6 K/mm3 (1.2-5.4) 12/12/16 06:04 [place] # 1.2 K/mm3 (0.0-0.8) H 12/12/16 06:04 Eos # 0.3 K/mm3 (0.0-0.4) 12/12/16 06:04 Baso # 0.1 K/mm3 (0.0-0.1) 12/12/16 06:04 Seg Neutrophils % 73.5 % (40.0-70.0) H 12/12/16 06:04 Seg Neutrophils # 8.9 K/mm3 (1.8-7.7) H 12/12/16 06:04 PT 18.2 Sec. (12.2-14.9) H 12/09/16 17:25 INR 1.51 (0.87-1.13) H 12/09/16 17:25 APTT 34.2 Sec. (24.2-36.6) 12/09/16 17:25 D-Dimer 622.72 ng/mlDDU (0-234) H 12/09/16 17:25 POC ABG pH 7.479 (7.35-7.45) H 12/10/16 14:02 POC ABG pCO2 44.9 (35-45) 12/10/16 14:02 POC ABG pO2 64 (80-105) L 12/10/16 14:02 POC ABG HCO3 33.4 12/10/16 14:02 POC ABG Total CO2 35 12/10/16 14:02 POC ABG O2 Sat 93 12/10/16 14:02 POC ABG Base Excess 10 12/10/16 14:02 FiO2 21 % 12/10/16 14:02 Sodium 141 mmol/L (137-145) 12/12/16 06:04 Potassium 4.6 mmol/L (3.6-5.0) 12/12/16 06:04 Chloride 97.6 mmol/L (98-107) L 12/12/16 06:04 Carbon Dioxide 31 mmol/L (22-30) H 12/12/16 06:04 Anion Gap 17 mmol/L 12/12/16 06:04 BUN 21 mg/dL (9-20) H 12/12/16 06:04 Creatinine 1.4 mg/dL (0.8-1.5) 12/12/16 06:04 Estimated GFR > 60 ml/min 12/12/16 06:04 BUN/Creatinine Ratio 15.00 % 12/12/16 06:04 Glucose 153 mg/dL (75-100) H 12/12/16 06:04 POC Glucose 185 (70-105) H 12/11/16 21:55 Calcium 8.4 mg/dL (8.4-10.2) 12/12/16 06:04 Magnesium 1.80 mg/dL (1.7-2.3) 12/09/16 17:25 Total Bilirubin 0.70 mg/dL (0.1-1.2) 12/09/16 17:25 AST 19 units/L (5-40) 12/09/16 17:25 ALT 24 units/L (7-56) 12/09/16 17:25 Alkaline Phosphatase 162 units/L (35-129) H 12/09/16 17:25 Troponin T 0.167 ng/mL (0.00-0.029) H* 12/09/16 17:25 NT-Pro-B Natriuret Pep 3789 pg/mL (0-900) H 12/09/16 17:25 Total Protein 7.4 g/dL (6.3-8.2) 12/09/16 17:25 Albumin 2.9 g/dL (3.9-5) L 12/09/16 17:25 Albumin/Globulin Ratio 0.6 % 12/09/16 17:25 Triglycerides 63 mg/dL (2-149) 12/09/16 17:25 Cholesterol 130 mg/dL (50-199) 12/09/16 17:25 LDL Cholesterol Direct 85 mg/dL (50-130) 12/09/16 17:25 HDL Cholesterol 33 mg/dL (40-59) L 12/09/16 17:25 Cholesterol/HDL Ratio 3.93 % 12/09/16 17:25 Lipase 5 units/L (13-60) L 12/09/16 17:25 Urine Color Yellow (Yellow) 12/10/16 16:30 Urine Turbidity Clear (Clear) 12/10/16 16:30 Urine pH 6.0 (5.0-7.0) 12/10/16 16:30 Ur Specific [place] 1.031 (1.003-1.030) H 12/10/16 16:30 Urine Protein 100 mg/dl mg/dL (Negative) 12/10/16 16:30 Urine Glucose (UA) Neg mg/dL (Negative) 12/10/16 16:30 Urine Ketones Neg mg/dL (Negative) 12/10/16 16:30 Urine Blood Mod (Negative) 12/10/16 16:30 Urine Nitrite Neg (Negative) 12/10/16 16:30 Urine Bilirubin Neg (Negative) 12/10/16 16:30 Urine Urobilinogen 4.0 mg/dL (<2.0) 12/10/16 16:30 Ur Leukocyte Esterase Sm (Negative) 12/10/16 16:30 Urine WBC (Auto) 22.0 /HPF (0.0-6.0) H 12/10/16 16:30 Urine RBC (Auto) 7.0 /HPF (0.0-6.0) 12/10/16 16:30 U Epithel Cells (Auto) < 1.0 /HPF (0-13.0) 12/10/16 16:30 Hyaline Casts 1 /LPF 12/10/16 04:21 Urine Mucus Few /HPF 12/10/16 16:30 Blood Type O POSITIVE 12/10/16 12:26 Antibody Screen TNR 12/10/16 12:26 ADDIE Antibody Screen Negative 12/10/16 12:26
--- NOTE | 2016-12-12 13:47 | Progress Note ---
Assessment and Plan - Patient Problems (1) Shortness of breath Current Visit: Yes Status: Acute Plan to address problem: Persantine thallium stress test is pending for further cardiac ischemic evaluation. (2) Uncontrolled hypertension Current Visit: No Status: Acute Plan to address problem: The peak control is optimal on valsartan and Procardia. Subjective Date of service: 12/12/16 Interval history: Patient is comfortable, he underwent a Persantin thallium stress test today, results are pending. No new cardiac complaints. Objective Vital Signs Temp Pulse Resp BP Pulse Ox 12/12/16 08:00 97.7 F 65 18 140/69 98 12/12/16 03:55 98.4 F 71 20 140/66 97 12/12/16 00:00 71 12/11/16 23:55 98.9 F 70 20 141/72 96 12/11/16 22:50 72 128/61 12/11/16 22:45 72 125/61 12/11/16 22:00 96 12/11/16 19:55 99.9 F H 72 20 128/61 95 12/11/16 17:45 99.9 F H 70 20 137/65 96 12/11/16 14:09 96 - Physical Examination General: No Apparent Distress HEENT: Positive: PERRL Neck: Positive: neck supple Cardiac: Positive: Reg Rate and Rhythm Lungs: Positive: Decreased Breath Sounds Neuro: Positive: Grossly Intact Abdomen: Positive: Soft Skin: Positive: Clear Extremities: Absent: edema - Labs and Meds CBC 12/12/16 Range/Units 06:04 WBC 12.2 H (4.5-11.0) K/mm3 RBC 4.06 (3.65-5.03) M/mm3 Hgb 10.9 L (11.8-15.2) gm/dl Hct 34.1 L (35.5-45.6) % Plt Count 408 (140-440) K/mm3 Lymph # 1.6 (1.2-5.4) K/mm3 [place] # 1.2 H (0.0-0.8) K/mm3 Eos # 0.3 (0.0-0.4) K/mm3 Baso # 0.1 (0.0-0.1) K/mm3 Comprehensive Metabolic Panel 12/12/16 Range/Units 06:04 Sodium 141 (137-145) mmol/L Potassium 4.6 (3.6-5.0) mmol/L Chloride 97.6 L (98-107) mmol/L Carbon Dioxide 31 H (22-30) mmol/L BUN 21 H (9-20) mg/dL Creatinine 1.4 (0.8-1.5) mg/dL Glucose 153 H (75-100) mg/dL Calcium 8.4 (8.4-10.2) mg/dL - Imaging and Cardiology EKG: image reviewed
[2016-12-12] MEDS: LEVAQUIN 750MG/150ML 750 MG/150 ML BAG IV SCH (17:09)
[2016-12-12] MEDS: LOVENOX SUB-Q SCH (17:10)
[2016-12-12] MEDS: DIOVAN PO SCH ×2 (17:11→22:46)
[2016-12-12] MEDS: COREG PO SCH ×2 (17:13→22:40)
[2016-12-12] MEDS: PROCARDIA XL PO SCH (20:10)
[2016-12-13] MEDS: LASIX IV SCH (06:45)
[2016-12-13] MEDS: ZOSYN/NS 4.5GM/100ML 4.5 GM/100 ML VIAL IV SCH ×5 (06:58→11:01)
--- NOTE | 2016-12-13 07:29 | Treadmill Report ---
THALLIUM STRESS TEST LEFT VENTRICLE: Left ventricle appears mildly dilated. There is a moderate sized, fixed inferior wall defect, of moderate intensity, and worse on the resting study. There is no reversibility on this stress study. Gated analysis demonstrates mild left ventricular systolic dysfunction, ejection fraction of 48%. CONCLUSION: Evidence of a mild cardiomyopathy with mild left ventricular systolic dysfunction. The perfusion study demonstrates likely diaphragmatic attenuation artifact. There is no reversible ischemia demonstrated on this study. Clinical correlation is recommended. JOB# [id number] CA/NTS
[2016-12-13] MEDS: COREG PO SCH (11:07)
[2016-12-13] MEDS: DIOVAN PO SCH (11:08)
[2016-12-13] MEDS: LOVENOX SUB-Q SCH (11:08)
[2016-12-13] MEDS: PROCARDIA XL PO SCH (11:08)
--- NOTE | 2016-12-13 11:54 | Progress Note ---
Assessment and Plan Shortness of breath no evidence of PE on CTA chest Hypertension -uncontrolled Elevated troponin, nonspecific No reversible ischemia on MPI this admission. Normal LV systolic function, EF 55% on echocardiogram 11/2016. Subjective Date of service: 12/13/16 Interval history: Patient reports he is feeling better. BP still not optimal, currently 165/73. Objective Vital Signs Temp Pulse Pulse Resp BP Pulse Ox 12/13/16 11:18 72 98 12/13/16 11:07 70 165/73 12/13/16 08:50 98.5 F 70 20 165/73 98 12/13/16 05:32 99.3 F 74 22 184/83 92 12/13/16 00:10 99.5 F 68 19 191/81 97 12/13/16 00:00 63 12/12/16 22:46 68 169/76 12/12/16 22:40 68 169/76 12/12/16 22:00 18 98 12/12/16 20:18 98.1 F 68 20 169/76 97 12/12/16 17:44 98.3 F 68 18 176/77 98 12/12/16 17:13 70 162/74 12/12/16 17:11 70 164/74 12/12/16 16:00 70 12/12/16 14:28 98.1 F 74 18 162/74 97 12/12/16 12:09 72 126/61 12/12/16 12:08 73 130/58 12/12/16 12:07 73 140/59 12/12/16 12:06 73 136/58 12/12/16 12:05 71 149/71 - Physical Examination General: No Apparent Distress HEENT: Positive: PERRL Cardiac: Positive: Reg Rate and Rhythm Lungs: Positive: Decreased Breath Sounds Neuro: Positive: Grossly Intact - Imaging and Cardiology EKG: image reviewed
--- NOTE | 2016-12-13 12:16 | Discharge Summary ---
Providers - Providers Date of Admission: 12/09/16 23:46 Date of discharge: 12/13/16 Attending physician: GRADY SALVADOR MD 12/10/16 01:53 Consult to Wound/ET Nurse [CONS] Routine Reason For Exam: wound eval Physical Therapy Evaluation and Treat [CONS] Routine Comment: Reason For Exam: change in mobility 12/10/16 04:28 Consult to Physician [CONS] Routine Consulting Provider: MENDEZ WEINSTEIN Reason For Exam: sob Place consult to:: Dr. Weinstein Notified:: Flora BAH Phone number called:: Was contact made?: Yes If yes, spoke with:: [facility] Time called:: 08:26 12/12/16 10:20 Consult to Dietitian/Nutrition [CONS] Routine Physician Instructions: Reason For Exam: Reason for Consult: samy score 15 Primary care physician: WILNER SHIN MD Hospitalization Condition: Fair Disposition: DC-01 TO HOME OR SELFCARE Time spent for discharge: 31 minutes - Discharge Diagnoses (1) Acute chest pain Status: Acute (2) Chronic acquired lymphedema Status: Acute (3) Leg swelling Status: Acute (4) Peripheral edema Status: Acute (5) Labile blood pressure Status: Acute (6) Uncontrolled hypertension Status: Acute Core Measure Documentation - Palliative Care Palliative Care/ Comfort Measures: Not Applicable - Core Measures Any of the following diagnoses?: none Exam - Physical Exam Narrative exam: Not in cardiopulmonary distress. The patient appeared well nourished and normally developed. Vital signs as documented. Head exam is unremarkable. No scleral icterus . Neck is without jugular venous distension, thyromegaly, or carotid bruits. Lungs are clear to auscultation. Cardiac exam reveals regular rate and Rhythm. Abdominal exam reveals normal bowel sounds, no masses. Extremities bilateral non-pitting edema. EQUAL OPPORTUNITY REPRESENTATIVE: Alert and oriented 3. No focal weakness. - Constitutional Vitals: Temp Pulse Resp BP Pulse Ox 98.5 F 72 20 165/73 98 12/13/16 08:50 12/13/16 11:18 12/13/16 08:50 12/13/16 11:07 12/13/16 11:18 Plan Activity: no restrictions Weight Bearing Status: Full Weight Bearing Diet: low salt, diabetic Follow up with: PRIMARY CAREMD [Primary Care Provider] - 3-5 Days Prescriptions: Carvedilol [Coreg] 3.125 mg PO BID #60 tablet NIFEdipine XL [Procardia Xl] 60 mg PO QDAY #30 tablet
[2016-12-13 18:11] VITALS: BP 167/76
== END 2016-12-13 19:08 | disposition home health service (06) | DRG 871 ==
LOC: ED 16:53 → 4A 23:46
PROVIDERS: ADMIT Internal Medicine; ATTEND Internal Medicine
PROC: 4A033R1 Measurement of Arterial Saturation, Peripheral, Percutaneous Approach (ICD-10-PCS; principal; 2016-12-10)
DX: A41.9 Sepsis, unspecified organism (principal); J18.1 Lobar pneumonia, unspecified organism; L97.929 Non-pressure chronic ulcer of unspecified part of left lower leg with unspecified severity; E11.9 Type 2 diabetes mellitus without complications; I11.0 Hypertensive heart disease with heart failure; I50.9 Heart failure, unspecified; R07.89 Other chest pain; I89.0 Lymphedema, not elsewhere classified; R09.89 Other specified symptoms and signs involving the circulatory and respiratory systems; Z79.82 Long term (current) use of aspirin; Z79.4 Long term (current) use of insulin; Z82.49 Family history of ischemic heart disease and other diseases of the circulatory system
CPT/HCPCS: 36415; 36600; 71020; 71275; 78452; 80048; 80053; 80061; 81001; 82803; 82962; 83690; 83735; 83880; 84484; 85025; 85379; 85610; 85730; 86850; 86900; 86901; 87040; 87076; 87086; 87186; 93005; 93010; 93017; 96374; 96375; A9502; G8978-GP; G8979-GP; J1650; J1940; J1956; J2270; J2543; J2785; Q9967

== ENCOUNTER 2017-04-18 16:03 | Inpatient (IN) | payer MEDICARE ==
[2017-04-18 17:42] LABS: Basophils % (Auto) 0.2 % (0.0-1.8); Eosinophils % (Auto) 1.7 % (0.0-4.3); Hematocrit 31.7 % (35.5-45.6); Hemoglobin 10.6 gm/dl (11.8-15.2); Mean Corpuscular HGB Conc 34 % (32-34); Mean Corpuscular Hemoglobin 28 pg (28-32); Mean Corpuscular Volume 82 fl (84-94); Platelet Count 304 K/mm3 (140-440); Red Blood Count 3.86 M/mm3 (3.65-5.03); Red Cell Distribution Width 14.2 % (13.2-15.2); White Blood Count 10.6 K/mm3 (4.5-11.0)
[2017-04-18 17:55] LABS: INR 1.38 (0.87-1.13); Partial Thromboplastin Time 39.2 Sec. (24.2-36.6)
[2017-04-18 18:00] LABS: Alanine Aminotransferase 14 units/L (7-56); Albumin/Globulin Ratio 0.9 %; Alkaline Phosphatase 142 units/L (35-129); Anion Gap 17 mmol/L; BUN/Creatinine Ratio 18; Blood Urea Nitrogen 22 mg/dL (9-20); Calcium 8.3 mg/dL (8.4-10.2); Carbon Dioxide 30 mmol/L (22-30); Chloride 97.5 mmol/L (98-107); Glucose 150 mg/dL (75-100); Potassium 3.6 mmol/L (3.6-5.0); Sodium 141 mmol/L (137-145); Total Protein 6.5 g/dL (6.3-8.2)
--- NOTE | 2017-04-18 19:31 | XRay Report ---
FINAL REPORT PROCEDURE: XR CHEST 1V AP TECHNIQUE: Chest radiograph anteroposterior view. CPT 36350 HISTORY: RENÉE/Swelling COMPARISON: Chest x-ray dated December 09, 2016 FINDINGS: Probable CHF is present. Small pleural effusions are likely. No pneumothorax or pulmonary edema is seen. IMPRESSION: Likely CHF is present.
[2017-04-18 19:34] LABS: Cholesterol 132 mg/dL (50-199); HDL Cholesterol 36 mg/dL (40-59); LDL Cholesterol,Direct 80 mg/dL (50-130); Triglycerides 81 mg/dL (2-149)
[2017-04-18] MEDS ORDERED: LASIX IV ONE ×2 (20:43→21:51)
[2017-04-18 21:31] LABS: Bilirubin,Urine NEG (Negative); Blood,Urine MOD (Negative); Ketones,Urine NEG (Negative); Leukocyte Esterase,Urine NEG (Negative); Mucus,Urine FEW /HPF; Nitrite,Urine NEG (Negative)
[2017-04-18 21:33] LABS: Protein,Urine >500 mg/dL (Negative)
--- NOTE | 2017-04-18 21:52 | Emergency Department Report ---
ED Extremity Problem HPI - General Chief complaint: Extremity Problem,Nontraumatic Stated complaint: WEAKNESS Time Seen by Provider: 04/18/17 19:17 Source: EMS, old records reviewed Mode of arrival: Stretcher Limitations: No Limitations - History of Present Illness Initial comments: 71-year-old male the past medical history of obesity, CHF, diabetes, hypertension, and chronic lymphadenopathy presents to the hospital complaints of lower extremity edema and abdominal swelling. Symptoms progressively last several days despite compliance with medications. Patient complains of aching mild to moderate pain to bilateral extremities. Denies cough, fever, chest pain , or significant shortness of breath. Previous medical record review: Patient was admitted here 12/09/2016 and had a negative stress test at that time. Echocardiogram showed EF of 55-60% with normal diastolic filling MD Complaint: extremity pain - Related Data Home Medications Medication Instructions Recorded Confirmed Last Taken Insulin NPH, Human [NovoLIN N] 10 units SQ QDAY 12/09/16 04/18/17 Unknown Metoprolol [Lopressor TAB] 12.5 mg PO BID 04/18/17 04/18/17 Unknown Ranitidine HCl [Acid Executive Personal Assistant] 150 mg PO BID 04/18/17 04/18/17 Unknown Previous Rx's Medication Instructions Recorded Last Taken Type Aspirin [Aspirin BABY CHEW TAB] 81 mg PO QDAY #30 tab.chew 11/30/16 12/08/16 Rx Furosemide [Lasix TAB] 40 mg PO QDAY #30 tablet 11/30/16 12/08/16 Rx Valsartan [Diovan] 160 mg PO DAILY #30 tablet 11/30/16 12/08/16 Rx Carvedilol [Coreg] 3.125 mg PO BID #60 tablet 12/13/16 Unknown Rx Allergies Allergy/AdvReac Type Severity Reaction Status Date / Time No Known Allergies Allergy Unverified 11/27/16 23:04 ED Review of Systems ROS: Stated complaint: WEAKNESS Other details as noted in HPI Comment: All other systems reviewed and negative Other: Constitutional: No fevers chills Eyes: No eye pain visual changes ENT: No ear pain or throat pain Neck: Denies pain Respiratory: Denies cough wheezing shortness of breath Cardiovascular: Denies chest pain, palpitations, syncope GI: Denies abdominal pain, nausea, vomiting, diarrhea Musculoskeletal: As per HPI Skin: Denies rash, lesions, erythema Neurologic: Denies headache, numbness, weakness Psychiatric: Denies suicidal ideation, hallucinations ED Past Medical Hx - Past Medical History Hx Hypertension: Yes Hx Congestive Heart Failure: Yes Hx Diabetes: Yes Additional medical history: Chronic lymphadenopathy - Social History Smoking Status: Never Smoker Substance Use Type: None - Medications Home Medications: Home Medications Medication Instructions Recorded Confirmed Last Taken Type Aspirin [Aspirin BABY CHEW TAB] 81 mg PO QDAY #30 tab.chew 11/30/16 04/18/17 Rx Furosemide [Lasix TAB] 40 mg PO QDAY #30 tablet 11/30/16 04/18/17 12/08/16 Rx Valsartan [Diovan] 160 mg PO DAILY #30 tablet 11/30/16 04/18/17 12/08/16 Rx Insulin NPH, Human [NovoLIN N] 10 units SQ QDAY 12/09/16 04/18/17 Unknown History Carvedilol [Coreg] 3.125 mg PO BID #60 tablet 12/13/16 04/18/17 Unknown Rx Metoprolol [Lopressor TAB] 12.5 mg PO BID 04/18/17 04/18/17 Unknown History Ranitidine HCl [Acid Executive Personal Assistant] 150 mg PO BID 04/18/17 04/18/17 Unknown History ED Physical Exam - General Limitations: No Limitations - Other Other exam information: General: No limitations Head exam: Atraumatic, normocephalic Eyes exam: Normal appearance ENT: Moist mucous membrane, normal oropharynx Neck exam: Normal inspection, full range of motion, no meningismus nontender Respiratory exam: Diminished breath sounds at the bases without wheezes, accessory muscle use, or tachypnea Cardiovascular: Normal rate and rhythm, normal heart sounds Abdomen: Soft, nondistended, and nontender, with normal bowel sounds, no rebound, or guarding Extremity: Full range of motion normal inspection no deformity, significant lower extremity edema and abdominal wall edema. No calf tenderness Back: Normal Inspection, full range of motion, no tenderness Neurologic: Alert, oriented x3, cranial nerves intact, no motor or sensory deficit Psychiatric: normal affect, normal mood Skin: Warm, dry, intact ED Course Vital Signs 04/18/17 04/18/17 04/18/17 16:30 16:35 16:45 Temperature 99.4 F Pulse Rate 89 89 89 Respiratory 18 18 16 Rate Blood Pressure 205/65 205/65 205/65 O2 Sat by Pulse 98 98 Oximetry 04/18/17 04/18/17 04/18/17 17:01 17:15 17:30 Temperature Pulse Rate 90 84 82 Respiratory 25 H 15 27 H Rate Blood Pressure 188/65 205/65 172/64 O2 Sat by Pulse 97 98 95 Oximetry 04/18/17 04/18/17 04/18/17 17:45 18:01 18:15 Temperature Pulse Rate 84 81 83 Respiratory 17 15 15 Rate Blood Pressure 188/65 170/73 172/64 O2 Sat by Pulse 97 93 98 Oximetry 04/18/17 04/18/17 04/18/17 18:31 18:45 19:31 Temperature Pulse Rate 87 85 83 Respiratory 16 19 15 Rate Blood Pressure 192/78 192/78 168/68 O2 Sat by Pulse 94 96 92 Oximetry 04/18/17 04/18/17 04/18/17 20:00 20:30 21:15 Temperature Pulse Rate 84 82 78 Respiratory 16 16 15 Rate Blood Pressure 159/65 192/83 193/77 O2 Sat by Pulse 94 96 97 Oximetry - Reevaluation(s) Reevaluation #1: 04/18/17 21:50 Lasix 40 mg ordered ED Medical Decision Making - Lab Data Result diagrams: 04/18/17 17:14 04/18/17 17:14 Lab Results 04/18/17 04/18/17 04/18/17 Range/Units 17:14 17:14 17:14 WBC 10.6 (4.5-11.0) K/mm3 RBC 3.86 (3.65-5.03) M/mm3 Hgb 10.6 L (11.8-15.2) gm/dl Hct 31.7 L (35.5-45.6) % MCV 82 L (84-94) fl MCH 28 (28-32) pg MCHC 34 (32-34) % RDW 14.2 (13.2-15.2) % Plt Count 304 (140-440) K/mm3 Lymph % (Auto) 10.0 L (13.4-35.0) % [place] % (Auto) 8.4 H (0.0-7.3) % Eos % (Auto) 1.7 (0.0-4.3) % Baso % (Auto) 0.2 (0.0-1.8) % Lymph # 1.1 L (1.2-5.4) K/mm3 Stephens # 0.9 H (0.0-0.8) K/mm3 Eos # 0.2 (0.0-0.4) K/mm3 Baso # 0.0 (0.0-0.1) K/mm3 Seg Neutrophils % 79.7 H (40.0-70.0) % Seg Neutrophils # 8.4 H (1.8-7.7) K/mm3 PT 17.7 H (12.2-14.9) Sec. INR 1.38 H (0.87-1.13) APTT 39.2 H (24.2-36.6) Sec. Sodium 141 (137-145) mmol/L Potassium 3.6 (3.6-5.0) mmol/L Chloride 97.5 L (98-107) mmol/L Carbon Dioxide 30 (22-30) mmol/L Anion Gap 17 mmol/L BUN 22 H (9-20) mg/dL Creatinine 1.2 (0.8-1.5) mg/dL Estimated GFR > 60 ml/min BUN/Creatinine Ratio 18 % Glucose 150 H (75-100) mg/dL Calcium 8.3 L (8.4-10.2) mg/dL Total Bilirubin 0.70 (0.1-1.2) mg/dL AST 20 (5-40) units/L ALT 14 (7-56) units/L Alkaline Phosphatase 142 H (35-129) units/L Troponin T 0.140 H* (0.00-0.029) ng/mL NT-Pro-B Natriuret Pep 3484 H (0-900) pg/mL Total Protein 6.5 (6.3-8.2) g/dL Albumin 3.0 L (3.9-5) g/dL Albumin/Globulin Ratio 0.9 % Triglycerides 81 (2-149) mg/dL Cholesterol 132 (50-199) mg/dL LDL Cholesterol Direct 80 (50-130) mg/dL HDL Cholesterol 36 L (40-59) mg/dL Cholesterol/HDL Ratio 3.66 % Urine Color (Yellow) Urine Turbidity (Clear) Urine pH (5.0-7.0) Ur Specific [place] (1.003-1.030) Urine Protein (Negative) mg/dL Urine Glucose (UA) (Negative) mg/dL Urine Ketones (Negative) mg/dL Urine Blood (Negative) Urine Nitrite (Negative) Urine Bilirubin (Negative) Urine Urobilinogen (<2.0) mg/dL Ur Leukocyte Esterase (Negative) Urine WBC (Auto) (0.0-6.0) /HPF Urine RBC (Auto) (0.0-6.0) /HPF U Epithel Cells (Auto) (0-13.0) /HPF Hyaline Casts /LPF Urine Mucus /HPF 04/18/17 04/18/17 Range/Units 20:25 20:46 WBC (4.5-11.0) K/mm3 RBC (3.65-5.03) M/mm3 Hgb (11.8-15.2) gm/dl Hct (35.5-45.6) % MCV (84-94) fl MCH (28-32) pg MCHC (32-34) % RDW (13.2-15.2) % Plt Count (140-440) K/mm3 Lymph % (Auto) (13.4-35.0) % [place] % (Auto) (0.0-7.3) % Eos % (Auto) (0.0-4.3) % Baso % (Auto) (0.0-1.8) % Lymph # (1.2-5.4) K/mm3 [place] # (0.0-0.8) K/mm3 Eos # (0.0-0.4) K/mm3 Baso # (0.0-0.1) K/mm3 Seg Neutrophils % (40.0-70.0) % Seg Neutrophils # (1.8-7.7) K/mm3 PT (12.2-14.9) Sec. INR (0.87-1.13) APTT (24.2-36.6) Sec. Sodium (137-145) mmol/L Potassium (3.6-5.0) mmol/L Chloride (98-107) mmol/L Carbon Dioxide (22-30) mmol/L Anion Gap mmol/L BUN (9-20) mg/dL Creatinine (0.8-1.5) mg/dL Estimated GFR ml/min BUN/Creatinine Ratio % Glucose (75-100) mg/dL Calcium (8.4-10.2) mg/dL Total Bilirubin (0.1-1.2) mg/dL AST (5-40) units/L ALT (7-56) units/L Alkaline Phosphatase (35-129) units/L Troponin T 0.122 H* (0.00-0.029) ng/mL NT-Pro-B Natriuret Pep (0-900) pg/mL Total Protein (6.3-8.2) g/dL Albumin (3.9-5) g/dL Albumin/Globulin Ratio % Triglycerides (2-149) mg/dL Cholesterol (50-199) mg/dL LDL Cholesterol Direct (50-130) mg/dL HDL Cholesterol (40-59) mg/dL Cholesterol/HDL Ratio % Urine Color [place]thel (Yellow) Urine Turbidity Clear (Clear) Urine pH 5.0 (5.0-7.0) Ur Specific [place] 1.023 (1.003-1.030) Urine Protein >500 (Negative) mg/dL Urine Glucose (UA) 50 (Negative) mg/dL Urine Ketones Neg (Negative) mg/dL Urine Blood Mod (Negative) Urine Nitrite Neg (Negative) Urine Bilirubin Neg (Negative) Urine Urobilinogen 2.0 (<2.0) mg/dL Ur Leukocyte Esterase Neg (Negative) Urine WBC (Auto) 9.0 H (0.0-6.0) /HPF Urine RBC (Auto) 11.0 (0.0-6.0) /HPF U Epithel Cells (Auto) 1.0 (0-13.0) /HPF Hyaline Casts 1 /LPF Urine Mucus Few /HPF - EKG Data -: EKG Interpreted by Ia EKG shows normal: sinus rhythm, axis (61), QRS complexes (92), ST-T waves (no stemi/t inv) Rate: normal (64) - EKG Data When compared to previous EKG there are: no significant change (12/09/16) - Radiology Data Radiology results: report reviewed Chest x-ray: Positive CHF, small pleural effusions likely - Medical Decision Making Patient does have a history of chronic lymphedema which is acutely worsening. Chest x-ray shows mild CHF. Patient admitted to hospital for further diuresis. Repeat troponin shows a decrease and elevated chronically per medical record review - Differential Diagnosis lymphedema, DVT, CHF, volume overload Critical Care Time: No Critical care attestation.: If time is entered above; I have spent that time in minutes in the direct care of this critically ill patient, excluding procedure time. ED Disposition Clinical Impression: Acute exacerbation of CHF (congestive heart failure), Chronic acquired lymphedema, Uncontrolled hypertension Disposition: OP ADMIT IP TO THIS HOSP Is pt being admited?: Yes Condition: Stable Time of Disposition: 21:54 (Dr Villa/hosp)
--- NOTE | 2017-04-18 23:29 | History and Physical Report ---
History of Present Illness Date of examination: 04/18/17 History of present illness: 71 year old man with Hypertension, CHF, Diabetes, chronic lymphedema comes to the emergency room with complaints of shortness of breath, lower extremity carl , swelling of his abdomen, HARTLEY The patient was dischrged on monday. Constitutional: no fever, no chills, no weight loss Ears, eyes, nose, mouth and throat: no nasal congestion, no nasal discharge, no sinus pressure, no vision change, no red eye. Neck: No neck pain or rigidity. Cardiovascular: no chest pain, palpitations, +leg swelling Respiratory: No cough, no congestion, no wheezing Gastrointestinal: no abdominal pain, hematochezia, no nausea, no vomiting Genitourinary : no dysuria, frequency , no hematuria Musculoskeletal: no joint swelling or muscle ache Integumentary: no rash, no pruritis Neurological: no parathesias, no numbness, no focal weakness Endocrine: no cold or heat intolerance, no polyuria or polydipsia Hematologic/Lymphatic: no easy bruising, no easy bleeding, no gland swelling Allergic/Immunologic: no urticaria, no angioedema. PAST SURGICAL HISTORY:None SOCIAL HISTORY:Denies alcohol, tobacco, drugs FAMILY HISTORY:Hypertension Medications and Allergies Allergies Allergy/AdvReac Type Severity Reaction Status Date / Time No Known Allergies Allergy Unverified 11/27/16 23:04 Home Medications Medication Instructions Recorded Confirmed Last Taken Type Aspirin [Aspirin BABY CHEW TAB] 81 mg PO QDAY #30 tab.chew 11/30/16 04/18/17 Rx Furosemide [Lasix TAB] 40 mg PO QDAY #30 tablet 11/30/16 04/18/17 12/08/16 Rx Valsartan [Diovan] 160 mg PO DAILY #30 tablet 11/30/16 04/18/17 12/08/16 Rx Insulin NPH, Human [NovoLIN N] 10 units SQ QDAY 12/09/16 04/18/17 Unknown History Carvedilol [Coreg] 3.125 mg PO BID #60 tablet 12/13/16 04/18/17 Unknown Rx Metoprolol [Lopressor TAB] 12.5 mg PO BID 04/18/17 04/18/17 Unknown History Ranitidine HCl [Acid Biostatistics Teacher] 150 mg PO BID 04/18/17 04/18/17 Unknown History Exam - Physical Exam Narrative exam: Gen. appearance: Patient lying in bed, no apparent distress HEENT: Normocephalic, atraumatic, pupils equally round and reactive to light, extraocular movement intact, and no sclericterus,. No JVD or thyromegaly or nodule,neck supple, no carotid bruit ,mucous membranes moist, no exudate or erythema Heart: S1, S2, regular rate and rhythm Lungs: Clear to auscultation bilaterally, breathing comfortable Abdomen: Positive bowel sounds, nontender, nondistended, no organomegaly Extremity:+ edema , no cyanosis, clubbing Skin: No rash, nodules, warm, dry Neuro: Oriented 3, cranial nerves II-12 intact, speech is fluent, motor and sensory intact - Constitutional Vitals: Temp Pulse Resp BP Pulse Ox 99.4 F 78 18 185/67 97 04/18/17 16:35 04/18/17 23:01 04/18/17 23:01 04/18/17 23:01 04/18/17 23:01 Results - Labs CBC & Chem 7: 04/20/17 05:07 04/25/17 05:03 Labs: Abnormal lab results 04/18/17 04/18/17 04/18/17 Range/Units 17:14 17:14 17:14 Hgb 10.6 L (11.8-15.2) gm/dl Hct 31.7 L (35.5-45.6) % MCV 82 L (84-94) fl Lymph % (Auto) 10.0 L (13.4-35.0) % [place] % (Auto) 8.4 H (0.0-7.3) % Lymph # 1.1 L (1.2-5.4) K/mm3 [place] # 0.9 H (0.0-0.8) K/mm3 Seg Neutrophils % 79.7 H (40.0-70.0) % Seg Neutrophils # 8.4 H (1.8-7.7) K/mm3 PT 17.7 H (12.2-14.9) Sec. INR 1.38 H (0.87-1.13) APTT 39.2 H (24.2-36.6) Sec. Chloride 97.5 L (98-107) mmol/L BUN 22 H (9-20) mg/dL Glucose 150 H (75-100) mg/dL Calcium 8.3 L (8.4-10.2) mg/dL Alkaline Phosphatase 142 H (35-129) units/L Troponin T 0.140 H* (0.00-0.029) ng/mL NT-Pro-B Natriuret Pep 3484 H (0-900) pg/mL Albumin 3.0 L (3.9-5) g/dL HDL Cholesterol 36 L (40-59) mg/dL Urine WBC (Auto) (0.0-6.0) /HPF 04/18/17 04/18/17 Range/Units 20:25 20:46 Hgb (11.8-15.2) gm/dl Hct (35.5-45.6) % MCV (84-94) fl Lymph % (Auto) (13.4-35.0) % [place] % (Auto) (0.0-7.3) % Lymph # (1.2-5.4) K/mm3 [place] # (0.0-0.8) K/mm3 Seg Neutrophils % (40.0-70.0) % Seg Neutrophils # (1.8-7.7) K/mm3 PT (12.2-14.9) Sec. INR (0.87-1.13) APTT (24.2-36.6) Sec. Chloride (98-107) mmol/L BUN (9-20) mg/dL Glucose (75-100) mg/dL Calcium (8.4-10.2) mg/dL Alkaline Phosphatase (35-129) units/L Troponin T 0.122 H* (0.00-0.029) ng/mL NT-Pro-B Natriuret Pep (0-900) pg/mL Albumin (3.9-5) g/dL HDL Cholesterol (40-59) mg/dL Urine WBC (Auto) 9.0 H (0.0-6.0) /HPF - Imaging and Cardiology EKG: image reviewed Chest x-ray: image reviewed Assessment and Plan Assessment CHF, acute on chronic, diastolic Hypertension Diabetes Admit to medicine Diurese with IV lasix Continue BB, ACEI, asa, Check cardiac enzymes, echo Consult cardiology Check fingersticks and initiate insulin sliding scale continue outpatient medications , start dvt prophalaxis
[2017-04-19] MEDS ORDERED: MILK OF MAGNESIA PO PRN (03:36)
[2017-04-19] MEDS ORDERED: ZOFRAN IV PRN (03:36)
[2017-04-19] MEDS ORDERED: DULCOLAX PR PRN (03:36)
[2017-04-19] MEDS ORDERED: D50W (25GM) Vial IV PRN (03:50)
[2017-04-19] MEDS: LASIX IV SCH ×2 (06:00→18:04)
[2017-04-19] MEDS: PEPCID PO SCH ×2 (09:00→21:42)
[2017-04-19] MEDS: BABY ASPIRIN PO SCH (09:00)
[2017-04-19] MEDS: COREG PO SCH ×2 (09:00→21:42)
[2017-04-19] MEDS: LOVENOX SUB-Q SCH (09:00)
[2017-04-19] MEDS: NOVOLOG SUB-Q SCH ×4 (09:45→21:42)
[2017-04-19 13:12] LABS: Creatine Kinase MB 7.4 ng/mL (0.0-4.0)
--- NOTE | 2017-04-19 15:03 | Consultation ---
History of Present Illness Consult date: 04/19/17 Consult reason: elevated troponin History of present illness: 71yr old man who presents to the hospital with bilateral lower extremity pain and generalized weakness. Cardiac consultation was requested for increase troponin. There was no chest pain or shortness of breath. His ECG is normal sinus rhythm, no acute ischemic changes. 4 months ago he had a persantine thallium stress test that was negative for ischemia and a normal LV systolic function, EF 55% on an echocardiogram. Medications and Allergies Allergies Allergy/AdvReac Type Severity Reaction Status Date / Time No Known Allergies Allergy Unverified 11/27/16 23:04 Home Medications Medication Instructions Recorded Confirmed Last Taken Type Aspirin [Aspirin BABY CHEW TAB] 81 mg PO QDAY #30 tab.chew 11/30/16 04/18/17 Rx Furosemide [Lasix TAB] 40 mg PO QDAY #30 tablet 11/30/16 04/18/17 12/08/16 Rx Valsartan [Diovan] 160 mg PO DAILY #30 tablet 11/30/16 04/18/17 12/08/16 Rx Insulin NPH, Human [NovoLIN N] 10 units SQ QDAY 12/09/16 04/18/17 Unknown History Carvedilol [Coreg] 3.125 mg PO BID #60 tablet 12/13/16 04/18/17 Unknown Rx Metoprolol [Lopressor TAB] 12.5 mg PO BID 04/18/17 04/18/17 Unknown History Ranitidine HCl [Acid Journeyman Tool And Die Maker] 150 mg PO BID 04/18/17 04/18/17 Unknown History Active Meds: Active Medications Acetaminophen (Tylenol) 650 mg PO Q4H PRN PRN Reason: Pain MILD(1-3)/Fever >100.5/WINTER Aspirin (Baby Aspirin) [address] [facility] Last Admin: 04/19/17 09:00 Dose: 81 mg Bisacodyl (Dulcolax) 10 mg [place] QDAY PRN PRN Reason: Constipation unrelieved by MOM Carvedilol (Coreg) 3.[address] [facility] Last Admin: 04/19/17 09:00 Dose: 3.125 mg Dextrose (D50w (25gm) Vial) 25 gm IV PRN PRN PRN Reason: Hypoglycemia Enoxaparin Sodium (Lovenox) 40 mg SUB-Q QDAY [facility] Last Admin: 04/19/17 09:00 Dose: 40 mg Famotidine (Pepcid) [address] [facility] Last Admin: 04/19/17 09:00 Dose: 20 mg Furosemide (Lasix) 40 mg IV 0600,1800 [facility] Last Admin: 04/19/17 06:00 Dose: 40 mg Insulin Aspart (Novolog) 0 units SUB-Q ACHS YENNIFER PRN Reason: Protocol Last Admin: 04/19/17 12:50 Dose: Not Given Insulin Human NPH (Novolin N) 10 unit SUB-Q QDDIAB [facility] Last Admin: 04/19/17 10:45 Dose: 10 unit Magnesium Hydroxide (Milk Of Magnesia) 30 ml PO Q4H PRN PRN Reason: Constipation Ondansetron HCl (Zofran) 4 mg IV Q8H PRN PRN Reason: N/V unrelieved by Reglan Valsartan (Diovan) [address] [facility] Physical Examination Vital Signs Pulse Resp BP 89 18 205/65 04/18/17 16:30 04/18/17 16:30 04/18/17 16:30 General appearance: no acute distress Cardiac: Positive: Reg Rate and Rhythm Results 04/18/17 17:14 04/18/17 17:14 Cardiac Enzymes 04/18/17 04/19/17 Range/Units 17:14 12:30 AST 20 (5-40) units/L CK-MB (CK-2) 7.4 H (0.0-4.0) ng/mL Coagulation 04/18/17 Range/Units 17:14 PT 17.7 H (12.2-14.9) Sec. INR 1.38 H (0.87-1.13) APTT 39.2 H (24.2-36.6) Sec. Lipids 04/18/17 Range/Units 17:14 Triglycerides 81 (2-149) mg/dL Cholesterol 132 (50-199) mg/dL HDL Cholesterol 36 L (40-59) mg/dL Cholesterol/HDL Ratio 3.66 % CBC 04/18/17 Range/Units 17:14 WBC 10.6 (4.5-11.0) K/mm3 RBC 3.86 (3.65-5.03) M/mm3 Hgb 10.6 L (11.8-15.2) gm/dl Hct 31.7 L (35.5-45.6) % Plt Count 304 (140-440) K/mm3 Lymph # 1.1 L (1.2-5.4) K/mm3 [place] # 0.9 H (0.0-0.8) K/mm3 Eos # 0.2 (0.0-0.4) K/mm3 Baso # 0.0 (0.0-0.1) K/mm3 Comprehensive Metabolic Panel 04/18/17 Range/Units 17:14 Sodium 141 (137-145) mmol/L Potassium 3.6 (3.6-5.0) mmol/L Chloride 97.5 L (98-107) mmol/L Carbon Dioxide 30 (22-30) mmol/L BUN 22 H (9-20) mg/dL Creatinine 1.2 (0.8-1.5) mg/dL Glucose 150 H (75-100) mg/dL Calcium 8.3 L (8.4-10.2) mg/dL AST 20 (5-40) units/L ALT 14 (7-56) units/L Alkaline Phosphatase 142 H (35-129) units/L Total Protein 6.5 (6.3-8.2) g/dL Albumin 3.0 L (3.9-5) g/dL Assessment and Plan Weakness Chronic lymphedema of bilateral lower extremities Hypertension Diabetes Nonspecific elevated troponin ECG is normal sinus rhythm, no acute ischemic changes. no ischemia on persantine thallium stress 11/2016 normal LV systolic function, EF 55% on an echocardiogram. 11/2016
--- NOTE | 2017-04-19 15:11 | Progress Note ---
Assessment and Plan Assessment and plan: 71-year-old -[place] male with past medical history significant for diastolic CHF, hypertension, diabetes who was admitted to the floor after he was presented to the emergency department complaining of worsening bilateral edema, shortness of breath. Acute on chronic diastolic CHF exacerbation - Patient is on IV Lasix and continue his home CHF medications - Cardiology consult placed Hypertension continue home medications DM2 on a sliding scale insulin, Accu-Chek Venous stasis ulcer - Wound care consulted Debility - PT consult placed DVT prophylaxis - Patient is on Lovenox Disposition -Continue inpatient care History Interval history: Patient was seen and evaluated at the bedside, patient is complaining bilateral leg swelling and mild shortness of breath. Hospitalist Physical - Physical exam Narrative exam: Not in cardiopulmonary distress. The patient is obese. Vital signs as documented. Head exam is unremarkable. No scleral icterus . Neck is without jugular venous distension, thyromegaly, or carotid bruits. Lungs are clear to auscultation. Cardiac exam reveals regular rate and Rhythm. First and second heart sounds normal. No murmurs, rubs or gallops. Abdominal exam reveals normal bowel sounds, no masses, no organomegaly and no aortic enlargement. Extremities +2 pedal and pretibial edema, stasis ulcers. 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 No focal weakness. - Constitutional Vitals: Temp Pulse Resp BP Pulse Ox 98.9 F 72 13 216/72 96 04/19/17 04:03 04/19/17 11:15 04/19/17 11:15 04/19/17 11:01 04/19/17 11:15 General appearance: Present: no acute distress Results - Labs CBC & Chem 7: 04/18/17 17:14 04/18/17 17:14 Labs: Laboratory Last Values WBC 10.6 K/mm3 (4.5-11.0) 04/18/17 17:14 RBC 3.86 M/mm3 (3.65-5.03) 04/18/17 17:14 Hgb 10.6 gm/dl (11.8-15.2) L 04/18/17 17:14 Hct 31.7 % (35.5-45.6) L 04/18/17 17:14 MCV 82 fl (84-94) L 04/18/17 17:14 MCH 28 pg (28-32) 04/18/17 17:14 MCHC 34 % (32-34) 04/18/17 17:14 RDW 14.2 % (13.2-15.2) 04/18/17 17:14 Plt Count 304 K/mm3 (140-440) 04/18/17 17:14 Lymph % (Auto) 10.0 % (13.4-35.0) L 04/18/17 17:14 [place] % (Auto) 8.4 % (0.0-7.3) H 04/18/17 17:14 Eos % (Auto) 1.7 % (0.0-4.3) 04/18/17 17:14 Baso % (Auto) 0.2 % (0.0-1.8) 04/18/17 17:14 Lymph # 1.1 K/mm3 (1.2-5.4) L 04/18/17 17:14 [place] # 0.9 K/mm3 (0.0-0.8) H 04/18/17 17:14 Eos # 0.2 K/mm3 (0.0-0.4) 04/18/17 17:14 Baso # 0.0 K/mm3 (0.0-0.1) 04/18/17 17:14 Seg Neutrophils % 79.7 % (40.0-70.0) H 04/18/17 17:14 Seg Neutrophils # 8.4 K/mm3 (1.8-7.7) H 04/18/17 17:14 PT 17.7 Sec. (12.2-14.9) H 04/18/17 17:14 INR 1.38 (0.87-1.13) H 04/18/17 17:14 APTT 39.2 Sec. (24.2-36.6) H 04/18/17 17:14 Sodium 141 mmol/L (137-145) 04/18/17 17:14 Potassium 3.6 mmol/L (3.6-5.0) 04/18/17 17:14 Chloride 97.5 mmol/L (98-107) L 04/18/17 17:14 Carbon Dioxide 30 mmol/L (22-30) 04/18/17 17:14 Anion Gap 17 mmol/L 04/18/17 17:14 BUN 22 mg/dL (9-20) H 04/18/17 17:14 Creatinine 1.2 mg/dL (0.8-1.5) 04/18/17 17:14 Estimated GFR > 60 ml/min 04/18/17 17:14 BUN/Creatinine Ratio 18 % 04/18/17 17:14 Glucose 150 mg/dL (75-100) H 04/18/17 17:14 POC Glucose 89 (70-105) 04/19/17 10:57 Calcium 8.3 mg/dL (8.4-10.2) L 04/18/17 17:14 Total Bilirubin 0.70 mg/dL (0.1-1.2) 04/18/17 17:14 AST 20 units/L (5-40) 04/18/17 17:14 ALT 14 units/L (7-56) 04/18/17 17:14 Alkaline Phosphatase 142 units/L (35-129) H 04/18/17 17:14 Total Creatine Kinase 277 units/L (55-170) H 04/19/17 12:30 CK-MB (CK-2) 7.4 ng/mL (0.0-4.0) H 04/19/17 12:30 CK-MB (CK-2) Rel Index 2.6 (0-4) 04/19/17 12:30 Troponin T 0.115 ng/mL (0.00-0.029) H* 04/19/17 12:30 NT-Pro-B Natriuret Pep 3484 pg/mL (0-900) H 04/18/17 17:14 Total Protein 6.5 g/dL (6.3-8.2) 04/18/17 17:14 Albumin 3.0 g/dL (3.9-5) L 04/18/17 17:14 Albumin/Globulin Ratio 0.9 % 04/18/17 17:14 Triglycerides 81 mg/dL (2-149) 04/18/17 17:14 Cholesterol 132 mg/dL (50-199) 04/18/17 17:14 LDL Cholesterol Direct 80 mg/dL (50-130) 04/18/17 17:14 HDL Cholesterol 36 mg/dL (40-59) L 04/18/17 17:14 Cholesterol/HDL Ratio 3.66 % 04/18/17 17:14 Urine Color Ethel (Yellow) 04/18/17 20:46 Urine Turbidity Clear (Clear) 04/18/17 20:46 Urine pH 5.0 (5.0-7.0) 04/18/17 20:46 Ur Specific [place] 1.023 (1.003-1.030) 04/18/17 20:46 Urine Protein >500 mg/dL (Negative) 04/18/17 20:46 Urine Glucose (UA) 50 mg/dL (Negative) 04/18/17 20:46 Urine Ketones Neg mg/dL (Negative) 04/18/17 20:46 Urine Blood Mod (Negative) 04/18/17 20:46 Urine Nitrite Neg (Negative) 04/18/17 20:46 Urine Bilirubin Neg (Negative) 04/18/17 20:46 Urine Urobilinogen 2.0 mg/dL (<2.0) 04/18/17 20:46 Ur Leukocyte Esterase Neg (Negative) 04/18/17 20:46 Urine WBC (Auto) 9.0 /HPF (0.0-6.0) H 04/18/17 20:46 Urine RBC (Auto) 11.0 /HPF (0.0-6.0) 04/18/17 20:46 U Epithel Cells (Auto) 1.0 /HPF (0-13.0) 04/18/17 20:46 Hyaline Casts 1 /LPF 04/18/17 20:46 Urine Mucus Few /HPF 04/18/17 20:46
[2017-04-19] MEDS: DIOVAN PO SCH (18:04)
[2017-04-20 06:13] LABS: Basophils % (Auto) 0.5 % (0.0-1.8); Eosinophils % (Auto) 4.4 % (0.0-4.3); Hematocrit 28.7 % (35.5-45.6); Hemoglobin 9.3 gm/dl (11.8-15.2); Mean Corpuscular HGB Conc 33 % (32-34); Mean Corpuscular Hemoglobin 27 pg (28-32); Mean Corpuscular Volume 82 fl (84-94); Platelet Count 296 K/mm3 (140-440); Red Blood Count 3.49 M/mm3 (3.65-5.03); Red Cell Distribution Width 14.5 % (13.2-15.2); White Blood Count 7.3 K/mm3 (4.5-11.0)
[2017-04-20 06:31] LABS: Anion Gap 13 mmol/L; BUN/Creatinine Ratio 16; Blood Urea Nitrogen 18 mg/dL (9-20); Calcium 7.9 mg/dL (8.4-10.2); Carbon Dioxide 35 mmol/L (22-30); Glucose 108 mg/dL (75-100); Potassium 3.1 mmol/L (3.6-5.0); Sodium 146 mmol/L (137-145)
[2017-04-20] MEDS: LASIX IV SCH ×2 (06:38→18:48)
[2017-04-20] MEDS: NOVOLOG SUB-Q SCH ×4 (10:22→22:37)
[2017-04-20] MEDS: LOVENOX SUB-Q SCH (10:23)
[2017-04-20] MEDS: K-DUR PO SCH (10:24)
[2017-04-20] MEDS: BABY ASPIRIN PO SCH (10:24)
[2017-04-20] MEDS: PEPCID PO SCH ×2 (10:24→22:35)
[2017-04-20] MEDS: COREG PO SCH ×2 (10:25→22:35)
[2017-04-20] MEDS: DIOVAN PO SCH (10:26)
--- NOTE | 2017-04-20 11:36 | Progress Note ---
Assessment and Plan Weakness Chronic lymphedema of bilateral lower extremities Hypertension Diabetes Nonspecific elevated troponin ECG is normal sinus rhythm, no acute ischemic changes. no ischemia on persantine thallium stress 11/2016. normal LV systolic function, EF 55% on an echocardiogram 11/2016. Conservative cardiac management. Subjective Date of service: 04/20/17 Interval history: Patient is resting in bed comfortably. He denies chest pain and shortness of breath. Objective Vital Signs Temp Pulse Resp BP BP Pulse Ox 04/20/17 10:26 77 191/78 04/20/17 10:25 77 191/78 04/20/17 04:58 98.1 F 78 18 170/67 98 04/20/17 00:19 98.4 F 73 18 142/50 96 04/19/17 20:04 98.0 F 71 18 138/47 96 04/19/17 19:39 95 04/19/17 19:30 71 04/19/17 18:04 78 04/19/17 17:00 97.9 F 72 19 180/75 97 04/19/17 14:00 83 04/19/17 12:12 97.9 F 75 18 117/39 98 - Labs and Meds Cardiac Enzymes 04/19/17 Range/Units 12:30 CK-MB (CK-2) 7.4 H (0.0-4.0) ng/mL CBC 04/20/17 Range/Units 05:07 WBC 7.3 (4.5-11.0) K/mm3 RBC 3.49 L (3.65-5.03) M/mm3 Hgb 9.3 L (11.8-15.2) gm/dl Hct 28.7 L (35.5-45.6) % Plt Count 296 (140-440) K/mm3 Lymph # 1.5 (1.2-5.4) K/mm3 [place] # 0.7 (0.0-0.8) K/mm3 Eos # 0.3 (0.0-0.4) K/mm3 Baso # 0.0 (0.0-0.1) K/mm3 Comprehensive Metabolic Panel 04/20/17 Range/Units 05:07 Sodium 146 H (137-145) mmol/L Potassium 3.1 L (3.6-5.0) mmol/L Chloride 101.0 (98-107) mmol/L Carbon Dioxide 35 H (22-30) mmol/L BUN 18 (9-20) mg/dL Creatinine 1.1 (0.8-1.5) mg/dL Glucose 108 H (75-100) mg/dL Calcium 7.9 L (8.4-10.2) mg/dL - Imaging and Cardiology EKG: image reviewed
--- NOTE | 2017-04-20 16:30 | Progress Note ---
Assessment and Plan Assessment and plan: 71-year-old -Sudanese male with past medical history significant for diastolic CHF, hypertension, diabetes who was admitted to the floor after he was presented to the emergency department complaining of worsening bilateral edema, shortness of breath. Bilateral lower extremity edema - Electrocardiogram was done and pending results Uncontrolled Hypertension, add amlodipine 10 mg and hydralazine 100mg PO TID on current regimen DM2 on a sliding scale insulin, Accu-Chek Venous stasis ulcer - Wound care consulted Debility - PT consult placed DVT prophylaxis - Patient is on Lovenox Disposition -Continue inpatient care History Interval history: Patient was seen and evaluated at the bedside, patient is complaining bilateral leg swelling and mild shortness of breath. Hospitalist Physical - Physical exam Narrative exam: Not in cardiopulmonary distress. The patient is obese. Vital signs as documented. Head exam is unremarkable. No scleral icterus . Neck is without jugular venous distension, thyromegaly, or carotid bruits. Lungs are clear to auscultation. Cardiac exam reveals regular rate and Rhythm. First and second heart sounds normal. No murmurs, rubs or gallops. Abdominal exam reveals normal bowel sounds, no masses, no organomegaly and no aortic enlargement. Extremities +2 pedal and pretibial edema, stasis ulcers. SYSTEMS NAVIGATOR: Alert and oriented 3. No focal weakness. - Constitutional Vitals: Temp Pulse Resp BP Pulse Ox 98.1 F 80 18 186/73 94 04/20/17 12:41 04/20/17 14:00 04/20/17 12:41 04/20/17 12:41 04/20/17 12:41 General appearance: Present: no acute distress Results - Labs CBC & Chem 7: 04/20/17 05:07 04/20/17 05:07 Labs: Laboratory Last Values WBC 7.3 K/mm3 (4.5-11.0) 04/20/17 05:07 RBC 3.49 M/mm3 (3.65-5.03) L 04/20/17 05:07 Hgb 9.3 gm/dl (11.8-15.2) L 04/20/17 05:07 Hct 28.7 % (35.5-45.6) L 04/20/17 05:07 MCV 82 fl (84-94) L 04/20/17 05:07 MCH 27 pg (28-32) L 04/20/17 05:07 MCHC 33 % (32-34) 04/20/17 05:07 RDW 14.5 % (13.2-15.2) 04/20/17 05:07 Plt Count 296 K/mm3 (140-440) 04/20/17 05:07 Lymph % (Auto) 20.3 % (13.4-35.0) 04/20/17 05:07 [place] % (Auto) 9.7 % (0.0-7.3) H 04/20/17 05:07 Eos % (Auto) 4.4 % (0.0-4.3) H 04/20/17 05:07 Baso % (Auto) 0.5 % (0.0-1.8) 04/20/17 05:07 Lymph # 1.5 K/mm3 (1.2-5.4) 04/20/17 05:07 [place] # 0.7 K/mm3 (0.0-0.8) 04/20/17 05:07 Eos # 0.3 K/mm3 (0.0-0.4) 04/20/17 05:07 Baso # 0.0 K/mm3 (0.0-0.1) 04/20/17 05:07 Seg Neutrophils % 65.1 % (40.0-70.0) 04/20/17 05:07 Seg Neutrophils # 4.8 K/mm3 (1.8-7.7) 04/20/17 05:07 PT 17.7 Sec. (12.2-14.9) H 04/18/17 17:14 INR 1.38 (0.87-1.13) H 04/18/17 17:14 APTT 39.2 Sec. (24.2-36.6) H 04/18/17 17:14 Sodium 146 mmol/L (137-145) H 04/20/17 05:07 Potassium 3.1 mmol/L (3.6-5.0) L 04/20/17 05:07 Chloride 101.0 mmol/L (98-107) 04/20/17 05:07 Carbon Dioxide 35 mmol/L (22-30) H 04/20/17 05:07 Anion Gap 13 mmol/L 04/20/17 05:07 BUN 18 mg/dL (9-20) 04/20/17 05:07 Creatinine 1.1 mg/dL (0.8-1.5) 04/20/17 05:07 Estimated GFR > 60 ml/min 04/20/17 05:07 BUN/Creatinine Ratio 16 % 04/20/17 05:07 Glucose 108 mg/dL (75-100) H 04/20/17 05:07 POC Glucose 147 (70-105) H 04/19/17 20:19 Calcium 7.9 mg/dL (8.4-10.2) L 04/20/17 05:07 Total Bilirubin 0.70 mg/dL (0.1-1.2) 04/18/17 17:14 AST 20 units/L (5-40) 04/18/17 17:14 ALT 14 units/L (7-56) 04/18/17 17:14 Alkaline Phosphatase 142 units/L (35-129) H 04/18/17 17:14 Total Creatine Kinase 277 units/L (55-170) H 04/19/17 12:30 CK-MB (CK-2) 7.4 ng/mL (0.0-4.0) H 04/19/17 12:30 CK-MB (CK-2) Rel Index 2.6 (0-4) 04/19/17 12:30 Troponin T 0.115 ng/mL (0.00-0.029) H* 04/19/17 12:30 NT-Pro-B Natriuret Pep 3484 pg/mL (0-900) H 04/18/17 17:14 Total Protein 6.5 g/dL (6.3-8.2) 04/18/17 17:14 Albumin 3.0 g/dL (3.9-5) L 04/18/17 17:14 Albumin/Globulin Ratio 0.9 % 04/18/17 17:14 Triglycerides 81 mg/dL (2-149) 04/18/17 17:14 Cholesterol 132 mg/dL (50-199) 04/18/17 17:14 LDL Cholesterol Direct 80 mg/dL (50-130) 04/18/17 17:14 HDL Cholesterol 36 mg/dL (40-59) L 04/18/17 17:14 Cholesterol/HDL Ratio 3.66 % 04/18/17 17:14 Urine Color Ethel (Yellow) 04/18/17 20:46 Urine Turbidity Clear (Clear) 04/18/17 20:46 Urine pH 5.0 (5.0-7.0) 04/18/17 20:46 Ur Specific [place] 1.023 (1.003-1.030) 04/18/17 20:46 Urine Protein >500 mg/dL (Negative) 04/18/17 20:46 Urine Glucose (UA) 50 mg/dL (Negative) 04/18/17 20:46 Urine Ketones Neg mg/dL (Negative) 04/18/17 20:46 Urine Blood Mod (Negative) 04/18/17 20:46 Urine Nitrite Neg (Negative) 04/18/17 20:46 Urine Bilirubin Neg (Negative) 04/18/17 20:46 Urine Urobilinogen 2.0 mg/dL (<2.0) 04/18/17 20:46 Ur Leukocyte Esterase Neg (Negative) 04/18/17 20:46 Urine WBC (Auto) 9.0 /HPF (0.0-6.0) H 04/18/17 20:46 Urine RBC (Auto) 11.0 /HPF (0.0-6.0) 04/18/17 20:46 U Epithel Cells (Auto) 1.0 /HPF (0-13.0) 04/18/17 20:46 Hyaline Casts 1 /LPF 04/18/17 20:46 Urine Mucus Few /HPF 04/18/17 20:46
[2017-04-20] MEDS: NORVASC PO SCH (18:48)
[2017-04-20] MEDS: APRESOLINE PO SCH (22:35)
[2017-04-20] MEDS: NORCO 5/325 PO PRN (22:36)
[2017-04-21] MEDS: LASIX IV SCH ×2 (05:48→18:30)
[2017-04-21 06:34] LABS: Calcium 7.8 mg/dL (8.4-10.2); Chloride 101.5 mmol/L (98-107); Potassium 3.5 mmol/L (3.6-5.0)
[2017-04-21] MEDS: NOVOLOG SUB-Q SCH ×3 (08:00→22:32)
[2017-04-21] MEDS: APRESOLINE PO SCH ×3 (10:00→22:31)
--- NOTE | 2017-04-21 10:10 | Query- General ---
Deamilan Smith___Rossy Date:___04/21/17 Infirmary Attendant/CDS:___Gerard Phone#:___[phone] Exercise your independent professional judgment when responding to this query. Questions asked do not imply a particular answer is desired or expected. We greatly appreciate your clarification on this issue. Clinical Documentation States: 71 year old male was admitted on 04/18/17 The progress note (Dr. Blair 04/20/17) states " 71-year-old -[place]ander male with past medical history significant for diastolic CHF, hypertension, diabetes Uncontrolled Hypertension, add amlodipine 10 mg and hydralazine 100mg PO TID on current regimen " Clinical Findings Show (include reference to source document): Blood Pressure: 205/65 Given the above clinical scenario can you please provide an appropriate diagnosis based on your knowledge of the patient: PHYSICIAN RESPONSE: [ x] Hypertensive urgency [ ] Hypertensive emergency [ ] Hypertensive crisis [ ] Other (Please specify) [ ] Clinically undeterminable Present on Admission: [x ] Yes (Y) [ ] Clinically undeterminable (W) [ ]No(N) Please also document response in your Progress Notes and/or Discharge Summary and indicate if the condition was present on admission. MTDD
[2017-04-21] MEDS: LOVENOX SUB-Q SCH (10:56)
[2017-04-21] MEDS: BABY ASPIRIN PO SCH (10:57)
[2017-04-21] MEDS: DIOVAN PO SCH (10:57)
[2017-04-21] MEDS: PEPCID PO SCH ×2 (10:58→22:32)
[2017-04-21] MEDS: K-DUR PO SCH (10:58)
[2017-04-21] MEDS: NORVASC PO SCH (10:58)
[2017-04-21] MEDS: COREG PO SCH ×2 (10:58→22:31)
--- NOTE | 2017-04-21 15:38 | Progress Note ---
Assessment and Plan Assessment and plan: 71-year-old -[place] male with past medical history significant for diastolic CHF, hypertension, diabetes who was admitted to the floor after he was presented to the emergency department complaining of worsening bilateral edema, shortness of breath. Bilateral lower extremity edema - Echo is normal Uncontrolled Hypertension, add amlodipine 10 mg and hydralazine 100mg PO TID on current regimen DM2 on a sliding scale insulin, Accu-Chek Venous stasis ulcer - Wound care consulted Debility - PT consult placed DVT prophylaxis - Patient is on Lovenox Disposition - Plan needs to be in subacute rehab but patient refused likely will discharge him tomorrow History Interval history: Patient was seen and evaluated at the bedside, patient is complaining bilateral leg swelling with mild improvement. Hospitalist Physical - Physical exam Narrative exam: Not in cardiopulmonary distress. The patient is obese. Vital signs as documented. Head exam is unremarkable. No scleral icterus . Neck is without jugular venous distension, thyromegaly, or carotid bruits. Lungs are clear to auscultation. Cardiac exam reveals regular rate and Rhythm. First and second heart sounds normal. No murmurs, rubs or gallops. Abdominal exam reveals normal bowel sounds, no masses, no organomegaly and no aortic enlargement. Extremities +2 pedal and pretibial edema, stasis ulcers. CHILD LIFE SPECIALIST: Alert and oriented 3. No focal weakness. - Constitutional Vitals: Temp Pulse Resp BP Pulse Ox 98.4 F 71 18 121/46 98 04/21/17 08:32 04/21/17 08:32 04/21/17 08:32 04/21/17 08:32 04/21/17 08:32 General appearance: Present: no acute distress Results - Labs CBC & Chem 7: 04/20/17 05:07 04/21/17 05:41 Labs: Laboratory Last Values WBC 7.3 K/mm3 (4.5-11.0) 04/20/17 05:07 RBC 3.49 M/mm3 (3.65-5.03) L 04/20/17 05:07 Hgb 9.3 gm/dl (11.8-15.2) L 04/20/17 05:07 Hct 28.7 % (35.5-45.6) L 04/20/17 05:07 MCV 82 fl (84-94) L 04/20/17 05:07 MCH 27 pg (28-32) L 04/20/17 05:07 MCHC 33 % (32-34) 04/20/17 05:07 RDW 14.5 % (13.2-15.2) 04/20/17 05:07 Plt Count 296 K/mm3 (140-440) 04/20/17 05:07 Lymph % (Auto) 20.3 % (13.4-35.0) 04/20/17 05:07 [place] % (Auto) 9.7 % (0.0-7.3) H 04/20/17 05:07 Eos % (Auto) 4.4 % (0.0-4.3) H 04/20/17 05:07 Baso % (Auto) 0.5 % (0.0-1.8) 04/20/17 05:07 Lymph # 1.5 K/mm3 (1.2-5.4) 04/20/17 05:07 [place] # 0.7 K/mm3 (0.0-0.8) 04/20/17 05:07 Eos # 0.3 K/mm3 (0.0-0.4) 04/20/17 05:07 Baso # 0.0 K/mm3 (0.0-0.1) 04/20/17 05:07 Seg Neutrophils % 65.1 % (40.0-70.0) 04/20/17 05:07 Seg Neutrophils # 4.8 K/mm3 (1.8-7.7) 04/20/17 05:07 PT 17.7 Sec. (12.2-14.9) H 04/18/17 17:14 INR 1.38 (0.87-1.13) H 04/18/17 17:14 APTT 39.2 Sec. (24.2-36.6) H 04/18/17 17:14 Sodium 146 mmol/L (137-145) H 04/21/17 05:41 Potassium 3.5 mmol/L (3.6-5.0) L 04/21/17 05:41 Chloride 101.5 mmol/L (98-107) 04/21/17 05:41 Carbon Dioxide 34 mmol/L (22-30) H 04/21/17 05:41 Anion Gap 14 mmol/L 04/21/17 05:41 BUN 19 mg/dL (9-20) 04/21/17 05:41 Creatinine 1.6 mg/dL (0.8-1.5) H 04/21/17 05:41 Estimated GFR 52 ml/min 04/21/17 05:41 BUN/Creatinine Ratio 12 % 04/21/17 05:41 Glucose 114 mg/dL (75-100) H 04/21/17 05:41 POC Glucose 208 (70-105) H 04/20/17 20:20 Calcium 7.8 mg/dL (8.4-10.2) L 04/21/17 05:41 Total Bilirubin 0.70 mg/dL (0.1-1.2) 04/18/17 17:14 AST 20 units/L (5-40) 04/18/17 17:14 ALT 14 units/L (7-56) 04/18/17 17:14 Alkaline Phosphatase 142 units/L (35-129) H 04/18/17 17:14 Total Creatine Kinase 277 units/L (55-170) H 04/19/17 12:30 CK-MB (CK-2) 7.4 ng/mL (0.0-4.0) H 04/19/17 12:30 CK-MB (CK-2) Rel Index 2.6 (0-4) 04/19/17 12:30 Troponin T 0.115 ng/mL (0.00-0.029) H* 04/19/17 12:30 NT-Pro-B Natriuret Pep 3484 pg/mL (0-900) H 04/18/17 17:14 Total Protein 6.5 g/dL (6.3-8.2) 04/18/17 17:14 Albumin 3.0 g/dL (3.9-5) L 04/18/17 17:14 Albumin/Globulin Ratio 0.9 % 04/18/17 17:14 Triglycerides 81 mg/dL (2-149) 04/18/17 17:14 Cholesterol 132 mg/dL (50-199) 04/18/17 17:14 LDL Cholesterol Direct 80 mg/dL (50-130) 04/18/17 17:14 HDL Cholesterol 36 mg/dL (40-59) L 04/18/17 17:14 Cholesterol/HDL Ratio 3.66 % 04/18/17 17:14 Urine Color [place] (Yellow) 04/18/17 20:46 Urine Turbidity Clear (Clear) 04/18/17 20:46 Urine pH 5.0 (5.0-7.0) 04/18/17 20:46 Ur Specific [place] 1.023 (1.003-1.030) 04/18/17 20:46 Urine Protein >500 mg/dL (Negative) 04/18/17 20:46 Urine Glucose (UA) 50 mg/dL (Negative) 04/18/17 20:46 Urine Ketones Neg mg/dL (Negative) 04/18/17 20:46 Urine Blood Mod (Negative) 04/18/17 20:46 Urine Nitrite Neg (Negative) 04/18/17 20:46 Urine Bilirubin Neg (Negative) 04/18/17 20:46 Urine Urobilinogen 2.0 mg/dL (<2.0) 04/18/17 20:46 Ur Leukocyte Esterase Neg (Negative) 04/18/17 20:46 Urine WBC (Auto) 9.0 /HPF (0.0-6.0) H 04/18/17 20:46 Urine RBC (Auto) 11.0 /HPF (0.0-6.0) 04/18/17 20:46 U Epithel Cells (Auto) 1.0 /HPF (0-13.0) 04/18/17 20:46 Hyaline Casts 1 /LPF 04/18/17 20:46 Urine Mucus Few /HPF 04/18/17 20:46
[2017-04-21] MEDS: NORCO 5/325 PO PRN (22:33)
[2017-04-22 04:58] LABS: Calcium 7.6 mg/dL (8.4-10.2); Chloride 99.4 mmol/L (98-107); Potassium 3.8 mmol/L (3.6-5.0)
[2017-04-22] MEDS: LASIX IV SCH (06:29)
[2017-04-22] MEDS: APRESOLINE PO SCH ×3 (08:39→22:59)
[2017-04-22] MEDS: NOVOLOG SUB-Q SCH ×4 (08:46→23:00)
[2017-04-22] MEDS: NORVASC PO SCH (10:19)
[2017-04-22] MEDS: BABY ASPIRIN PO SCH (10:20)
[2017-04-22] MEDS: K-DUR PO SCH (10:20)
[2017-04-22] MEDS: PEPCID PO SCH ×2 (10:20→22:59)
[2017-04-22] MEDS: COREG PO SCH ×2 (10:20→22:59)
[2017-04-22] MEDS: DIOVAN PO SCH (10:21)
[2017-04-22] MEDS: LOVENOX SUB-Q SCH (10:21)
--- NOTE | 2017-04-22 12:56 | Progress Note ---
Assessment and Plan Assessment and plan: 71-year-old -Ch[place] male with past medical history significant for diastolic CHF, hypertension, diabetes who was admitted to the floor after he was presented to the emergency department complaining of worsening bilateral edema, shortness of breath. Bilateral lower extremity edema - Echo is normal Uncontrolled Hypertension, add amlodipine 10 mg and hydralazine 100mg PO TID on current regimen DM2 on a sliding scale insulin, Accu-Chek Venous stasis ulcer - Wound care consulted Debility - PT evaluated and recommended subacute rehabilitation Acute renal failure - Decrease the dose of Lasix from twice a day to once a day - Monitor BMP in the morning DVT prophylaxis - Patient is on Lovenox Disposition -Pending rehabilitation placement History Interval history: Patient was seen and evaluated at the bedside, patient is complaining bilateral leg swelling with mild improvement. Hospitalist Physical - Physical exam Narrative exam: Not in cardiopulmonary distress. The patient is obese. Vital signs as documented. Head exam is unremarkable. No scleral icterus . Neck is without jugular venous distension, thyromegaly, or carotid bruits. Lungs are clear to auscultation. Cardiac exam reveals regular rate and Rhythm. First and second heart sounds normal. No murmurs, rubs or gallops. Abdominal exam reveals normal bowel sounds, no masses, no organomegaly and no aortic enlargement. Extremities +2 pedal and pretibial edema, stasis ulcers. HACKSAW INSPECTOR: Alert and oriented 3. No focal weakness. - Constitutional Vitals: Temp Pulse Resp BP Pulse Ox 98.4 F 70 18 159/59 96 04/22/17 04:00 04/22/17 10:21 04/22/17 04:00 04/22/17 10:21 04/22/17 04:00 General appearance: Present: no acute distress Results - Labs CBC & Chem 7: 04/20/17 05:07 04/22/17 03:53 Labs: Laboratory Last Values WBC 7.3 K/mm3 (4.5-11.0) 04/20/17 05:07 RBC 3.49 M/mm3 (3.65-5.03) L 04/20/17 05:07 Hgb 9.3 gm/dl (11.8-15.2) L 04/20/17 05:07 Hct 28.7 % (35.5-45.6) L 04/20/17 05:07 MCV 82 fl (84-94) L 04/20/17 05:07 MCH 27 pg (28-32) L 04/20/17 05:07 MCHC 33 % (32-34) 04/20/17 05:07 RDW 14.5 % (13.2-15.2) 04/20/17 05:07 Plt Count 296 K/mm3 (140-440) 04/20/17 05:07 Lymph % (Auto) 20.3 % (13.4-35.0) 04/20/17 05:07 [place] % (Auto) 9.7 % (0.0-7.3) H 04/20/17 05:07 Eos % (Auto) 4.4 % (0.0-4.3) H 04/20/17 05:07 Baso % (Auto) 0.5 % (0.0-1.8) 04/20/17 05:07 Lymph # 1.5 K/mm3 (1.2-5.4) 04/20/17 05:07 [place] # 0.7 K/mm3 (0.0-0.8) 04/20/17 05:07 Eos # 0.3 K/mm3 (0.0-0.4) 04/20/17 05:07 Baso # 0.0 K/mm3 (0.0-0.1) 04/20/17 05:07 Seg Neutrophils % 65.1 % (40.0-70.0) 04/20/17 05:07 Seg Neutrophils # 4.8 K/mm3 (1.8-7.7) 04/20/17 05:07 PT 17.7 Sec. (12.2-14.9) H 04/18/17 17:14 INR 1.38 (0.87-1.13) H 04/18/17 17:14 APTT 39.2 Sec. (24.2-36.6) H 04/18/17 17:14 Sodium 143 mmol/L (137-145) 04/22/17 03:53 Potassium 3.8 mmol/L (3.6-5.0) 04/22/17 03:53 Chloride 99.4 mmol/L (98-107) 04/22/17 03:53 Carbon Dioxide 34 mmol/L (22-30) H 04/22/17 03:53 Anion Gap 13 mmol/L 04/22/17 03:53 BUN 24 mg/dL (9-20) H 04/22/17 03:53 Creatinine 1.9 mg/dL (0.8-1.5) H 04/22/17 03:53 Estimated GFR 43 ml/min 04/22/17 03:53 BUN/Creatinine Ratio 13 % 04/22/17 03:53 Glucose 134 mg/dL (75-100) H 04/22/17 03:53 POC Glucose 113 (70-105) H 04/22/17 11:58 Calcium 7.6 mg/dL (8.4-10.2) L 04/22/17 03:53 Total Bilirubin 0.70 mg/dL (0.1-1.2) 04/18/17 17:14 AST 20 units/L (5-40) 04/18/17 17:14 ALT 14 units/L (7-56) 04/18/17 17:14 Alkaline Phosphatase 142 units/L (35-129) H 04/18/17 17:14 Total Creatine Kinase 277 units/L (55-170) H 04/19/17 12:30 CK-MB (CK-2) 7.4 ng/mL (0.0-4.0) H 04/19/17 12:30 CK-MB (CK-2) Rel Index 2.6 (0-4) 04/19/17 12:30 Troponin T 0.115 ng/mL (0.00-0.029) H* 04/19/17 12:30 NT-Pro-B Natriuret Pep 3484 pg/mL (0-900) H 04/18/17 17:14 Total Protein 6.5 g/dL (6.3-8.2) 04/18/17 17:14 Albumin 3.0 g/dL (3.9-5) L 04/18/17 17:14 Albumin/Globulin Ratio 0.9 % 04/18/17 17:14 Triglycerides 81 mg/dL (2-149) 04/18/17 17:14 Cholesterol 132 mg/dL (50-199) 04/18/17 17:14 LDL Cholesterol Direct 80 mg/dL (50-130) 04/18/17 17:14 HDL Cholesterol 36 mg/dL (40-59) L 04/18/17 17:14 Cholesterol/HDL Ratio 3.66 % 04/18/17 17:14 Urine Color [place]thel (Yellow) 04/18/17 20:46 Urine Turbidity Clear (Clear) 04/18/17 20:46 Urine pH 5.0 (5.0-7.0) 04/18/17 20:46 Ur Specific [place] 1.023 (1.003-1.030) 04/18/17 20:46 Urine Protein >500 mg/dL (Negative) 04/18/17 20:46 Urine Glucose (UA) 50 mg/dL (Negative) 04/18/17 20:46 Urine Ketones Neg mg/dL (Negative) 04/18/17 20:46 Urine Blood Mod (Negative) 04/18/17 20:46 Urine Nitrite Neg (Negative) 04/18/17 20:46 Urine Bilirubin Neg (Negative) 04/18/17 20:46 Urine Urobilinogen 2.0 mg/dL (<2.0) 04/18/17 20:46 Ur Leukocyte Esterase Neg (Negative) 04/18/17 20:46 Urine WBC (Auto) 9.0 /HPF (0.0-6.0) H 04/18/17 20:46 Urine RBC (Auto) 11.0 /HPF (0.0-6.0) 04/18/17 20:46 U Epithel Cells (Auto) 1.0 /HPF (0-13.0) 04/18/17 20:46 Hyaline Casts 1 /LPF 04/18/17 20:46 Urine Mucus Few /HPF 04/18/17 20:46
[2017-04-22] MEDS: NORCO 5/325 PO PRN ×2 (13:46→22:59)
[2017-04-23 05:50] LABS: Calcium 7.9 mg/dL (8.4-10.2); Chloride 97.9 mmol/L (98-107); Potassium 4.2 mmol/L (3.6-5.0)
[2017-04-23] MEDS: LASIX IV SCH (06:27)
[2017-04-23] MEDS: NOVOLOG SUB-Q SCH ×4 (07:54→22:37)
[2017-04-23] MEDS: APRESOLINE PO SCH ×3 (07:54→20:35)
[2017-04-23] MEDS: DIOVAN PO SCH (09:19)
[2017-04-23] MEDS: COREG PO SCH ×2 (09:19→22:05)
[2017-04-23] MEDS: PEPCID PO SCH ×2 (09:20→22:05)
[2017-04-23] MEDS: NORVASC PO SCH (09:20)
[2017-04-23] MEDS: BABY ASPIRIN PO SCH (09:20)
[2017-04-23] MEDS: K-DUR PO SCH (09:20)
[2017-04-23] MEDS: LOVENOX SUB-Q SCH (09:21)
--- NOTE | 2017-04-23 12:57 | Progress Note ---
Assessment and Plan Assessment and plan: 71-year-old -[place]itan[place] male with past medical history significant for diastolic CHF, hypertension, diabetes who was admitted to the floor after he was presented to the emergency department complaining of worsening bilateral edema, shortness of breath. Bilateral lower extremity edema - Echo is normal Uncontrolled Hypertension, add amlodipine 10 mg and hydralazine 100mg PO TID on current regimen DM2 on a sliding scale insulin, Accu-Chek Venous stasis ulcer - Wound care consulted Debility - PT evaluated and recommended subacute rehabilitation Acute renal failure - stop Lasix - Nephrology Consult - Monitor BMP in the morning DVT prophylaxis - Patient is on Lovenox Disposition -Pending rehabilitation placement History Interval history: Patient was seen and evaluated at the bedside, patient didn't have any complaints. Hospitalist Physical - Physical exam Narrative exam: Not in cardiopulmonary distress. Legally blind. The patient is obese. Vital signs as documented. Head exam is unremarkable. No scleral icterus . Neck is without jugular venous distension, thyromegaly, or carotid bruits. Lungs are clear to auscultation. Cardiac exam reveals regular rate and Rhythm. First and second heart sounds normal. No murmurs, rubs or gallops. Abdominal exam reveals normal bowel sounds, no masses, no organomegaly and no aortic enlargement. Extremities +2 pedal and pretibial edema, stasis ulcers. SPINE NURSE: Alert and oriented 3. No focal weakness. - Constitutional Vitals: Temp Pulse Resp BP Pulse Ox 98.3 F 65 20 132/53 97 04/23/17 04:22 04/23/17 04:22 04/23/17 04:22 04/23/17 04:22 04/23/17 04:22 General appearance: Present: no acute distress Results - Labs CBC & Chem 7: 04/20/17 05:07 04/23/17 04:36 Labs: Laboratory Last Values WBC 7.3 K/mm3 (4.5-11.0) 04/20/17 05:07 RBC 3.49 M/mm3 (3.65-5.03) L 04/20/17 05:07 Hgb 9.3 gm/dl (11.8-15.2) L 04/20/17 05:07 Hct 28.7 % (35.5-45.6) L 04/20/17 05:07 MCV 82 fl (84-94) L 04/20/17 05:07 MCH 27 pg (28-32) L 04/20/17 05:07 MCHC 33 % (32-34) 04/20/17 05:07 RDW 14.5 % (13.2-15.2) 04/20/17 05:07 Plt Count 296 K/mm3 (140-440) 04/20/17 05:07 Lymph % (Auto) 20.3 % (13.4-35.0) 04/20/17 05:07 [place] % (Auto) 9.7 % (0.0-7.3) H 04/20/17 05:07 Eos % (Auto) 4.4 % (0.0-4.3) H 04/20/17 05:07 Baso % (Auto) 0.5 % (0.0-1.8) 04/20/17 05:07 Lymph # 1.5 K/mm3 (1.2-5.4) 04/20/17 05:07 [place] # 0.7 K/mm3 (0.0-0.8) 04/20/17 05:07 Eos # 0.3 K/mm3 (0.0-0.4) 04/20/17 05:07 Baso # 0.0 K/mm3 (0.0-0.1) 04/20/17 05:07 Seg Neutrophils % 65.1 % (40.0-70.0) 04/20/17 05:07 Seg Neutrophils # 4.8 K/mm3 (1.8-7.7) 04/20/17 05:07 PT 17.7 Sec. (12.2-14.9) H 04/18/17 17:14 INR 1.38 (0.87-1.13) H 04/18/17 17:14 APTT 39.2 Sec. (24.2-36.6) H 04/18/17 17:14 Sodium 141 mmol/L (137-145) 04/23/17 04:36 Potassium 4.2 mmol/L (3.6-5.0) 04/23/17 04:36 Chloride 97.9 mmol/L (98-107) L 04/23/17 04:36 Carbon Dioxide 33 mmol/L (22-30) H 04/23/17 04:36 Anion Gap 14 mmol/L 04/23/17 04:36 BUN 27 mg/dL (9-20) H 04/23/17 04:36 Creatinine 2.0 mg/dL (0.8-1.5) H 04/23/17 04:36 Estimated GFR 40 ml/min 04/23/17 04:36 BUN/Creatinine Ratio 14 % 04/23/17 04:36 Glucose 156 mg/dL (75-100) H 04/23/17 04:36 POC Glucose 168 (70-105) H 04/23/17 11:10 Calcium 7.9 mg/dL (8.4-10.2) L 04/23/17 04:36 Total Bilirubin 0.70 mg/dL (0.1-1.2) 04/18/17 17:14 AST 20 units/L (5-40) 04/18/17 17:14 ALT 14 units/L (7-56) 04/18/17 17:14 Alkaline Phosphatase 142 units/L (35-129) H 04/18/17 17:14 Total Creatine Kinase 277 units/L (55-170) H 04/19/17 12:30 CK-MB (CK-2) 7.4 ng/mL (0.0-4.0) H 04/19/17 12:30 CK-MB (CK-2) Rel Index 2.6 (0-4) 04/19/17 12:30 Troponin T 0.115 ng/mL (0.00-0.029) H* 04/19/17 12:30 NT-Pro-B Natriuret Pep 3484 pg/mL (0-900) H 04/18/17 17:14 Total Protein 6.5 g/dL (6.3-8.2) 04/18/17 17:14 Albumin 3.0 g/dL (3.9-5) L 04/18/17 17:14 Albumin/Globulin Ratio 0.9 % 04/18/17 17:14 Triglycerides 81 mg/dL (2-149) 04/18/17 17:14 Cholesterol 132 mg/dL (50-199) 04/18/17 17:14 LDL Cholesterol Direct 80 mg/dL (50-130) 04/18/17 17:14 HDL Cholesterol 36 mg/dL (40-59) L 04/18/17 17:14 Cholesterol/HDL Ratio 3.66 % 04/18/17 17:14 Urine Color Ethel (Yellow) 04/18/17 20:46 Urine Turbidity Clear (Clear) 04/18/17 20:46 Urine pH 5.0 (5.0-7.0) 04/18/17 20:46 Ur Specific Luther 1.023 (1.003-1.030) 04/18/17 20:46 Urine Protein >500 mg/dL (Negative) 04/18/17 20:46 Urine Glucose (UA) 50 mg/dL (Negative) 04/18/17 20:46 Urine Ketones Neg mg/dL (Negative) 04/18/17 20:46 Urine Blood Mod (Negative) 04/18/17 20:46 Urine Nitrite Neg (Negative) 04/18/17 20:46 Urine Bilirubin Neg (Negative) 04/18/17 20:46 Urine Urobilinogen 2.0 mg/dL (<2.0) 04/18/17 20:46 Ur Leukocyte Esterase Neg (Negative) 04/18/17 20:46 Urine WBC (Auto) 9.0 /HPF (0.0-6.0) H 04/18/17 20:46 Urine RBC (Auto) 11.0 /HPF (0.0-6.0) 04/18/17 20:46 U Epithel Cells (Auto) 1.0 /HPF (0-13.0) 04/18/17 20:46 Hyaline Casts 1 /LPF 04/18/17 20:46 Urine Mucus Few /HPF 04/18/17 20:46
--- NOTE | 2017-04-23 12:58 | Consultation ---
History of Present Illness - Reason for Consult Consult date: 04/23/17 acute renal failure Requesting physician: GRADY SALVADOR - History of Present Illness 71yr old AAM with past medical hx of DM II x >10 years, HTN> 10 years, legally blind, admitted after he presented with bilateral lower extremity pain and generalized weakness 1 month duration. We are consulted after he was noted to have abnormal BUN/CR of 27/2 mg/dL. His CR was at 1.1 on admission 4 days back. Pt is a poor historian. No urinary complaints. No hypotension episode. No contrast. No NSAIDs Past History Past Medical History: diabetes, hypertension Past Surgical History: No surgical history Social history: denies: smoking, alcohol abuse, IV drug use Family history: other (no kidney disease ) Medications and Allergies Allergies Allergy/AdvReac Type Severity Reaction Status Date / Time No Known Allergies Allergy Unverified 11/27/16 23:04 Home Medications Medication Instructions Recorded Confirmed Last Taken Type Aspirin [Aspirin BABY CHEW TAB] 81 mg PO QDAY #30 tab.chew 11/30/16 04/18/17 Rx Furosemide [Lasix TAB] 40 mg PO QDAY #30 tablet 11/30/16 04/18/17 12/08/16 Rx Valsartan [Diovan] 160 mg PO DAILY #30 tablet 11/30/16 04/18/17 12/08/16 Rx Insulin NPH, Human [NovoLIN N] 10 units SQ QDAY 12/09/16 04/18/17 Unknown History Carvedilol [Coreg] 3.125 mg PO BID #60 tablet 12/13/16 04/18/17 Unknown Rx Metoprolol [Lopressor TAB] 12.5 mg PO BID 04/18/17 04/18/17 Unknown History Ranitidine HCl [Acid Vp Scientific] 150 mg PO BID 04/18/17 04/18/17 Unknown History Active Meds: Active Medications Acetaminophen (Tylenol) 650 mg PO Q4H PRN PRN Reason: Pain MILD(1-3)/Fever >100.5/WINTER Acetaminophen/Hydrocodone Bitart ([place] 5/325) 1 each PO Q6H PRN PRN Reason: Pain, Moderate (4-6) Last Admin: 04/22/17 22:59 Dose: 1 each Amlodipine Besylate (Norvasc) 10 mg PO QDAY YENNIFER Last Admin: 04/23/17 09:20 Dose: 10 mg Aspirin (Baby Aspirin) 81 mg PO QDAY [facility] Last Admin: 04/23/17 09:20 Dose: 81 mg Bisacodyl (Dulcolax) 10 mg VT QDAY PRN PRN Reason: Constipation unrelieved by MOM Carvedilol (Coreg) 3.125 mg PO BID [facility] Last Admin: 04/23/17 09:19 Dose: 3.125 mg Dextrose (D50w (25gm) Vial) 25 gm IV PRN PRN PRN Reason: Hypoglycemia Enoxaparin Sodium (Lovenox) 40 mg SUB-Q QDAY [facility] Last Admin: 04/23/17 09:21 Dose: 40 mg Famotidine (Pepcid) 20 mg PO BID [facility] Last Admin: 04/23/17 09:20 Dose: 20 mg Furosemide (Lasix) 40 mg IV 0600 [facility] Last Admin: 04/23/17 06:27 Dose: 40 mg Hydralazine HCl (Apresoline) 100 mg PO TID [facility] Last Admin: 04/23/17 07:54 Dose: 100 mg Insulin Aspart (Novolog) 0 units SUB-Q ACHS [facility] PRN Reason: Protocol Last Admin: 04/23/17 12:23 Dose: Not Given Insulin Human NPH (Novolin N) 10 unit SUB-Q QDDIAB [facility] Last Admin: 04/23/17 07:54 Dose: 10 unit Magnesium Hydroxide (Milk Of Magnesia) 30 ml PO Q4H PRN PRN Reason: Constipation Ondansetron HCl (Zofran) 4 mg IV Q8H PRN PRN Reason: N/V unrelieved by Reglan Potassium Chloride (K-Dur) 40 meq PO QDAY [facility] Last Admin: 04/23/17 09:20 Dose: 40 meq Valsartan (Diovan) 160 mg PO DAILY [facility] Last Admin: 04/23/17 09:19 Dose: 160 mg Review of Systems Constitutional: fatigue, weakness, no weight loss, no weight gain Ears, nose, mouth and throat: no nose pain, no nasal congestion, no nasal discharge, no sinus pressure Cardiovascular: no chest pain, no orthopnea, no palpitations Respiratory: no cough, no cough with sputum, no excessive sputum, no shortness of breath, no dyspnea on exertion Gastrointestinal: no abdominal pain, no nausea, no vomiting Genitourinary Male: no dysuria, no hematuria, no flank pain Rectal: no pain, no incontinence Musculoskeletal: no neck stiffness, no neck pain Integumentary: no rash, no pruritis, no redness Neurological: weakness, no paralysis, no tingling, no seizures Endocrine: no cold intolerance, no heat intolerance Hematologic/Lymphatic: no easy bruising, no easy bleeding Exam - Vital Signs Vital signs: Vital Signs Pulse Resp BP 89 18 205/65 04/18/17 16:30 04/18/17 16:30 04/18/17 16:30 - General Appearance General appearance: well-developed, well-nourished, appears stated age, chronically ill, fatigue, frail EENT: PERRL, mucous membranes moist Neck: Present: neck supple, trachea midline. Absent: JVD/HJR, Masses Respiratory: Decreased Breath Sounds, Other (no wheezing ) Heart: regular, normal heart rate, S1S2, no murmurs Gastrointestinal: Present: normoactive bowel sounds. Absent: tenderness Integumentary: no rash, warm and dry Neurologic: no focal deficit, alert and oriented x3 Musculoskeletal: Present: other (+edema b/L R>L ). Absent: deformities, joint swelling Psychiatric: mood/affect appropriate, cooperative Results - Lab Results 04/20/17 05:07 04/23/17 04:36 Most recent lab results Calcium 7.9 mg/dL (8.4-10.2) L 04/23/17 04:36 Assessment and Plan 1. THOMAS likely Acute tubular necrosis. Diuretics/ARB may have contributed for the worsening function 2. DM II, uncontrolled 3. Uncontrolled Hypertension 4. Metabolic alkalosis contraction alkalosis with diuretics vs compensation for chronic resp acidosis 5. Morbid obesity 6. Deconditioning Plan: Will hold of Lasix for today D/deepthi Valasatan Obtain Urine studies Obtain renal U/S Strict I/Os Further recommendations to follow based on response to above. Thank you for the consult
--- NOTE | 2017-04-23 16:45 | Ultrasound Report ---
FINAL REPORT EXAM: US RENAL BILAT HISTORY: elevated creatinine TECHNIQUE: Ultrasound kidneys PRIORS: None. FINDINGS: Right kidney is 11.8 x 6.3 x 5.3 centimeters The left kidney is 12.7 x 6.6 x 4.1 centimeters No evidence for hydronephrosis. The renal parenchyma demonstrates normal echogenicity bilaterally Note is made a 1.8 x 1.6 x 2.0 centimeter hypoechoic focus left kidney most consistent with a cyst IMPRESSION: 2 centimeter left renal cyst Otherwise normal study
[2017-04-23 18:44] LABS: Bilirubin,Urine NEG (Negative); Blood,Urine NEG (Negative); Ketones,Urine NEG (Negative); Leukocyte Esterase,Urine TR (Negative); Mucus,Urine FEW /HPF; Nitrite,Urine NEG (Negative); Urobilinogen,Urine < 2.0 mg/dL (<2.0)
[2017-04-23] MEDS: NORCO 5/325 PO PRN (22:05)
[2017-04-24 06:29] LABS: Calcium 8.3 mg/dL (8.4-10.2); Potassium 4.3 mmol/L (3.6-5.0)
[2017-04-24] MEDS: LASIX IV SCH (06:57)
[2017-04-24] MEDS: APRESOLINE PO SCH ×3 (09:00→20:32)
[2017-04-24] MEDS: NORVASC PO SCH (09:00)
[2017-04-24] MEDS: K-DUR PO SCH (09:00)
[2017-04-24] MEDS: BABY ASPIRIN PO SCH (09:00)
[2017-04-24] MEDS: PEPCID PO SCH ×2 (09:01→22:32)
[2017-04-24] MEDS: COREG PO SCH ×2 (09:01→22:05)
[2017-04-24] MEDS: LOVENOX SUB-Q SCH (09:01)
[2017-04-24] MEDS: NOVOLOG SUB-Q SCH ×2 (09:01→16:58)
--- NOTE | 2017-04-24 14:18 | Progress Note ---
Assessment and Plan Assessment and plan: 71-year-old -[place]ian male with past medical history significant for diastolic CHF, hypertension, diabetes who was admitted to the floor after he was presented to the emergency department complaining of worsening bilateral edema, shortness of breath. Bilateral lower extremity edema - Echo is normal Uncontrolled Hypertension, add amlodipine 10 mg and hydralazine 100mg PO TID on current regimen DM2 on a sliding scale insulin, Accu-Chek Venous stasis ulcer - Wound care consulted Debility - PT evaluated and recommended subacute rehabilitation Acute renal failure - Creatinine this morning was 2.1 - Lasix was stopped yesterday, nephrology consulted - Renal ultrasound negative - Follow nephrology recommendations DVT prophylaxis - Patient is on Lovenox Disposition - Possible discharge to rehabilitation tomorrow, if kidney functions getting better. History Interval history: Patient was seen and evaluated at the bedside, patient complains pain on the left leg. Hospitalist Physical - Physical exam Narrative exam: Not in cardiopulmonary distress. Legally blind. The patient is obese. Vital signs as documented. Head exam is unremarkable. No scleral icterus . Neck is without jugular venous distension, thyromegaly, or carotid bruits. Lungs are clear to auscultation. Cardiac exam reveals regular rate and Rhythm. First and second heart sounds normal. No murmurs, rubs or gallops. Abdominal exam reveals normal bowel sounds, no masses, no organomegaly and no aortic enlargement. Extremities +1 pedal and pretibial edema, stasis ulcers. CHART COMPUTER: Alert and oriented 3. No focal weakness. - Constitutional Vitals: Temp Pulse Resp BP Pulse Ox 97.9 F 65 18 122/52 97 04/24/17 11:16 04/24/17 11:16 04/24/17 11:16 04/24/17 11:16 04/24/17 11:16 General appearance: Present: no acute distress Results - Labs CBC & Chem 7: 04/20/17 05:07 04/24/17 05:27 Labs: Laboratory Last Values WBC 7.3 K/mm3 (4.5-11.0) 04/20/17 05:07 RBC 3.49 M/mm3 (3.65-5.03) L 04/20/17 05:07 Hgb 9.3 gm/dl (11.8-15.2) L 04/20/17 05:07 Hct 28.7 % (35.5-45.6) L 04/20/17 05:07 MCV 82 fl (84-94) L 04/20/17 05:07 MCH 27 pg (28-32) L 04/20/17 05:07 MCHC 33 % (32-34) 04/20/17 05:07 RDW 14.5 % (13.2-15.2) 04/20/17 05:07 Plt Count 296 K/mm3 (140-440) 04/20/17 05:07 Lymph % (Auto) 20.3 % (13.4-35.0) 04/20/17 05:07 [place] % (Auto) 9.7 % (0.0-7.3) H 04/20/17 05:07 Eos % (Auto) 4.4 % (0.0-4.3) H 04/20/17 05:07 Baso % (Auto) 0.5 % (0.0-1.8) 04/20/17 05:07 Lymph # 1.5 K/mm3 (1.2-5.4) 04/20/17 05:07 [place] # 0.7 K/mm3 (0.0-0.8) 04/20/17 05:07 Eos # 0.3 K/mm3 (0.0-0.4) 04/20/17 05:07 Baso # 0.0 K/mm3 (0.0-0.1) 04/20/17 05:07 Seg Neutrophils % 65.1 % (40.0-70.0) 04/20/17 05:07 Seg Neutrophils # 4.8 K/mm3 (1.8-7.7) 04/20/17 05:07 PT 17.7 Sec. (12.2-14.9) H 04/18/17 17:14 INR 1.38 (0.87-1.13) H 04/18/17 17:14 APTT 39.2 Sec. (24.2-36.6) H 04/18/17 17:14 Sodium 141 mmol/L (137-145) 04/24/17 05:27 Potassium 4.3 mmol/L (3.6-5.0) 04/24/17 05:27 Chloride 98.0 mmol/L (98-107) 04/24/17 05:27 Carbon Dioxide 32 mmol/L (22-30) H 04/24/17 05:27 Anion Gap 15 mmol/L 04/24/17 05:27 BUN 32 mg/dL (9-20) H 04/24/17 05:27 Creatinine 2.1 mg/dL (0.8-1.5) H 04/24/17 05:27 Estimated GFR 38 ml/min 04/24/17 05:27 BUN/Creatinine Ratio 15 % 04/24/17 05:27 Glucose 88 mg/dL (75-100) 04/24/17 05:27 POC Glucose 89 (70-105) 04/24/17 08:00 Calcium 8.3 mg/dL (8.4-10.2) L 04/24/17 05:27 Total Bilirubin 0.70 mg/dL (0.1-1.2) 04/18/17 17:14 AST 20 units/L (5-40) 04/18/17 17:14 ALT 14 units/L (7-56) 04/18/17 17:14 Alkaline Phosphatase 142 units/L (35-129) H 04/18/17 17:14 Total Creatine Kinase 277 units/L (55-170) H 04/19/17 12:30 CK-MB (CK-2) 7.4 ng/mL (0.0-4.0) H 04/19/17 12:30 CK-MB (CK-2) Rel Index 2.6 (0-4) 04/19/17 12:30 Troponin T 0.115 ng/mL (0.00-0.029) H* 04/19/17 12:30 NT-Pro-B Natriuret Pep 3484 pg/mL (0-900) H 04/18/17 17:14 Total Protein 6.5 g/dL (6.3-8.2) 04/18/17 17:14 Albumin 3.0 g/dL (3.9-5) L 04/18/17 17:14 Albumin/Globulin Ratio 0.9 % 04/18/17 17:14 Triglycerides 81 mg/dL (2-149) 04/18/17 17:14 Cholesterol 132 mg/dL (50-199) 04/18/17 17:14 LDL Cholesterol Direct 80 mg/dL (50-130) 04/18/17 17:14 HDL Cholesterol 36 mg/dL (40-59) L 04/18/17 17:14 Cholesterol/HDL Ratio 3.66 % 04/18/17 17:14 Urine Color Yellow (Yellow) 04/23/17 16:45 Urine Turbidity Clear (Clear) 04/23/17 16:45 Urine pH 5.0 (5.0-7.0) 04/23/17 16:45 Ur Specific [place] 1.015 (1.003-1.030) 04/23/17 16:45 Urine Protein 30 mg/dl mg/dL (Negative) 04/23/17 16:45 Urine Glucose (UA) Neg mg/dL (Negative) 04/23/17 16:45 Urine Ketones Neg mg/dL (Negative) 04/23/17 16:45 Urine Blood Neg (Negative) 04/23/17 16:45 Urine Nitrite Neg (Negative) 04/23/17 16:45 Urine Bilirubin Neg (Negative) 04/23/17 16:45 Urine Urobilinogen < 2.0 mg/dL (<2.0) 04/23/17 16:45 Ur Leukocyte Esterase Tr (Negative) 04/23/17 16:45 Urine WBC (Auto) 2.0 /HPF (0.0-6.0) 04/23/17 16:45 Urine RBC (Auto) 3.0 /HPF (0.0-6.0) 04/23/17 16:45 U Epithel Cells (Auto) < 1.0 /HPF (0-13.0) 04/23/17 16:45 Hyaline Casts 1 /LPF 04/18/17 20:46 Urine Mucus Few /HPF 04/23/17 16:45 Urine Creatinine 172.7 mg/dL (0.1-20.0) H 04/23/17 16:45 Protein/Creatinin Ratio 0.33 04/23/17 16:45 Urine Total Protein 57 mg/dL (5-11.8) H 04/23/17 16:45
--- NOTE | 2017-04-24 15:30 | Progress Note ---
Assessment and Plan 1. THOMAS likely Acute tubular necrosis. Diuretics/ARB may have contributed for the worsening function 2. DM II, uncontrolled 3. Uncontrolled Hypertension 4. Metabolic alkalosis contraction alkalosis with diuretics vs compensation for chronic resp acidosis 5. Morbid obesity 6. Deconditioning Plan: Continue holding off Lasix/ valsartan for now Renal U/S with no hydronephrosis. Urine studies with no protein or blood. Strict I/Os Subjective Date of service: 04/24/17 Interval history: No SOB/CP. Objective - Exam Narrative Exam: General appearance: well-developed, well-nourished, appears stated age, chronically ill, fatigue, frail EENT: PERRL, mucous membranes moist Neck: Present: neck supple, trachea midline. Absent: JVD/HJR, Masses Respiratory: Decreased Breath Sounds, Other (no wheezing ) Heart: regular, normal heart rate, S1S2, no murmurs Gastrointestinal: Present: normoactive bowel sounds. Absent: tenderness Integumentary: no rash, warm and dry Neurologic: no focal deficit, alert and oriented x3 Musculoskeletal: Present: other (+edema b/L R>L ). Absent: deformities, joint swelling Psychiatric: mood/affect appropriate, cooperative - Vital Signs Vital signs: Vital Signs - 12hr 04/24/17 04/24/17 04/24/17 05:33 08:57 09:00 Temperature 98.0 F 97.7 F Pulse Rate 74 77 Respiratory 18 20 Rate Blood Pressure 139/53 154/55 Blood Pressure 154/55 [Right] O2 Sat by Pulse 98 Oximetry 04/24/17 04/24/17 04/24/17 09:01 11:16 14:44 Temperature 97.9 F 97.8 F Pulse Rate 77 65 63 Respiratory 18 18 Rate Blood Pressure 154/55 122/52 148/62 Blood Pressure [Right] O2 Sat by Pulse 97 98 Oximetry - Lab 04/20/17 05:07 04/24/17 05:27 Most recent lab results Calcium 8.3 mg/dL (8.4-10.2) L 04/24/17 05:27 Urine Creatinine 172.7 mg/dL (0.1-20.0) H 04/23/17 16:45 Urine Total Protein 57 mg/dL (5-11.8) H 04/23/17 16:45
[2017-04-25] MEDS: LASIX IV SCH (06:09)
[2017-04-25 06:25] LABS: Calcium 8.2 mg/dL (8.4-10.2); Chloride 96.8 mmol/L (98-107); Potassium 4.6 mmol/L (3.6-5.0)
[2017-04-25] MEDS: NOVOLOG SUB-Q SCH ×6 (07:43→22:05)
--- NOTE | 2017-04-25 07:55 | Progress Note ---
Assessment and Plan 1. THOMAS likely Acute tubular necrosis. Diuretics/ARB may have contributed for the worsening function 2. DM II, uncontrolled 3. Uncontrolled Hypertension 4. Metabolic alkalosis contraction alkalosis with diuretics vs compensation for chronic resp acidosis 5. Morbid obesity 6. Deconditioning Plan: Continue holding off Lasix/ valsartan for now Renal U/S with no hydronephrosis. Urine studies with no protein or blood. CR worse again today to 2.5. Will obtain serologies for further work up Started on gentle IVF Strict I/Os Subjective Date of service: 04/25/17 Interval history: No SOB/CP. Objective - Exam Narrative Exam: General appearance: well-developed, well-nourished, appears stated age, chronically ill, fatigue, frail EENT: PERRL, mucous membranes moist Neck: Present: neck supple, trachea midline. Absent: JVD/HJR, Masses Respiratory: Decreased Breath Sounds, Other (no wheezing ) Heart: regular, normal heart rate, S1S2, no murmurs Gastrointestinal: Present: normoactive bowel sounds. Absent: tenderness Integumentary: no rash, warm and dry Neurologic: no focal deficit, alert and oriented x3 Musculoskeletal: Present: other (+edema b/L R>L ). Absent: deformities, joint swelling Psychiatric: mood/affect appropriate, cooperative - Vital Signs Vital signs: Vital Signs - 12hr 04/24/17 04/24/17 04/24/17 20:18 22:00 22:05 Temperature 98.2 F Pulse Rate 61 61 Respiratory 20 Rate Blood Pressure 100/37 100/37 O2 Sat by Pulse 99 96 Oximetry 04/25/17 04/25/17 00:00 00:27 Temperature 98.6 F Pulse Rate 63 68 Respiratory 20 Rate Blood Pressure 155/61 O2 Sat by Pulse 99 Oximetry - Lab 04/20/17 05:07 04/25/17 05:03 Most recent lab results Calcium 8.2 mg/dL (8.4-10.2) L 04/25/17 05:03 Urine Creatinine 172.7 mg/dL (0.1-20.0) H 04/23/17 16:45 Urine Total Protein 57 mg/dL (5-11.8) H 04/23/17 16:45
[2017-04-25] MEDS ORDERED: NACL 0.9% 1000 ML 1,000 ML IV ONE (08:05)
[2017-04-25] MEDS: APRESOLINE PO SCH ×3 (08:57→22:07)
[2017-04-25] MEDS: PEPCID PO SCH ×2 (10:41→22:05)
[2017-04-25] MEDS: LOVENOX SUB-Q SCH (10:41)
[2017-04-25] MEDS: NORVASC PO SCH (10:41)
[2017-04-25] MEDS: COREG PO SCH ×2 (10:42→22:06)
[2017-04-25] MEDS: K-DUR PO SCH (10:42)
[2017-04-25] MEDS: BABY ASPIRIN PO SCH (10:42)
--- NOTE | 2017-04-25 15:02 | Progress Note ---
Assessment and Plan Assessment and plan: 71-year-old -Turkmen male with past medical history significant for diastolic CHF, hypertension, diabetes who was admitted to the floor after he was presented to the emergency department complaining of worsening bilateral edema, shortness of breath. Bilateral lower extremity edema - Echo is normal Uncontrolled Hypertension, add amlodipine 10 mg and hydralazine 100mg PO TID on current regimen DM2 on a sliding scale insulin, Accu-Chek Venous stasis ulcer - Wound care consulted Debility - PT evaluated and recommended subacute rehabilitation Acute renal failure - Creatinine this morning was 2.5, worsened from yesterdays value - nephrology consult appreciated, gentle hydration - Renal ultrasound negative DVT prophylaxis - Patient is on Lovenox Disposition -Continue inpatient care until creatinine starts to trend down. History Interval history: Patient was seen and evaluated at the bedside, patient denied chest pain, leg pain. His daughter Piedad was in the room and discussed the management plan with her. Hospitalist Physical - Physical exam Narrative exam: Not in cardiopulmonary distress. Legally blind. The patient is obese. Vital signs as documented. Head exam is unremarkable. No scleral icterus . Neck is without jugular venous distension, thyromegaly, or carotid bruits. Lungs are clear to auscultation. Cardiac exam reveals regular rate and Rhythm. First and second heart sounds normal. No murmurs, rubs or gallops. Abdominal exam reveals normal bowel sounds, no masses, no organomegaly and no aortic enlargement. Extremities +1 pedal and pretibial edema, stasis ulcers. PAINT MIXER MACHINE: Alert and oriented 3. No focal weakness. - Constitutional Vitals: Temp Pulse Resp BP Pulse Ox 97.6 F 72 20 136/50 95 04/25/17 11:49 04/25/17 11:49 04/25/17 11:49 04/25/17 11:49 04/25/17 11:49 General appearance: Present: no acute distress Results - Labs CBC & Chem 7: 04/20/17 05:07 04/25/17 05:03 Labs: Laboratory Last Values WBC 7.3 K/mm3 (4.5-11.0) 04/20/17 05:07 RBC 3.49 M/mm3 (3.65-5.03) L 04/20/17 05:07 Hgb 9.3 gm/dl (11.8-15.2) L 04/20/17 05:07 Hct 28.7 % (35.5-45.6) L 04/20/17 05:07 MCV 82 fl (84-94) L 04/20/17 05:07 MCH 27 pg (28-32) L 04/20/17 05:07 MCHC 33 % (32-34) 04/20/17 05:07 RDW 14.5 % (13.2-15.2) 04/20/17 05:07 Plt Count 296 K/mm3 (140-440) 04/20/17 05:07 Lymph % (Auto) 20.3 % (13.4-35.0) 04/20/17 05:07 [place] % (Auto) 9.7 % (0.0-7.3) H 04/20/17 05:07 Eos % (Auto) 4.4 % (0.0-4.3) H 04/20/17 05:07 Baso % (Auto) 0.5 % (0.0-1.8) 04/20/17 05:07 Lymph # 1.5 K/mm3 (1.2-5.4) 04/20/17 05:07 [place] # 0.7 K/mm3 (0.0-0.8) 04/20/17 05:07 Eos # 0.3 K/mm3 (0.0-0.4) 04/20/17 05:07 Baso # 0.0 K/mm3 (0.0-0.1) 04/20/17 05:07 Seg Neutrophils % 65.1 % (40.0-70.0) 04/20/17 05:07 Seg Neutrophils # 4.8 K/mm3 (1.8-7.7) 04/20/17 05:07 PT 17.7 Sec. (12.2-14.9) H 04/18/17 17:14 INR 1.38 (0.87-1.13) H 04/18/17 17:14 APTT 39.2 Sec. (24.2-36.6) H 04/18/17 17:14 Sodium 138 mmol/L (137-145) 04/25/17 05:03 Potassium 4.6 mmol/L (3.6-5.0) 04/25/17 05:03 Chloride 96.8 mmol/L (98-107) L 04/25/17 05:03 Carbon Dioxide 33 mmol/L (22-30) H 04/25/17 05:03 Anion Gap 13 mmol/L 04/25/17 05:03 BUN 34 mg/dL (9-20) H 04/25/17 05:03 Creatinine 2.5 mg/dL (0.8-1.5) H 04/25/17 05:03 Estimated GFR 31 ml/min 04/25/17 05:03 BUN/Creatinine Ratio 14 % 04/25/17 05:03 Glucose 76 mg/dL (75-100) 04/25/17 05:03 POC Glucose 140 (70-105) H 04/25/17 11:14 Calcium 8.2 mg/dL (8.4-10.2) L 04/25/17 05:03 Total Bilirubin 0.70 mg/dL (0.1-1.2) 04/18/17 17:14 AST 20 units/L (5-40) 04/18/17 17:14 ALT 14 units/L (7-56) 04/18/17 17:14 Alkaline Phosphatase 142 units/L (35-129) H 04/18/17 17:14 Total Creatine Kinase 277 units/L (55-170) H 04/19/17 12:30 CK-MB (CK-2) 7.4 ng/mL (0.0-4.0) H 04/19/17 12:30 CK-MB (CK-2) Rel Index 2.6 (0-4) 04/19/17 12:30 Troponin T 0.115 ng/mL (0.00-0.029) H* 04/19/17 12:30 NT-Pro-B Natriuret Pep 3484 pg/mL (0-900) H 04/18/17 17:14 Total Protein 6.5 g/dL (6.3-8.2) 04/18/17 17:14 Albumin 3.0 g/dL (3.9-5) L 04/18/17 17:14 Albumin/Globulin Ratio 0.9 % 04/18/17 17:14 Triglycerides 81 mg/dL (2-149) 04/18/17 17:14 Cholesterol 132 mg/dL (50-199) 04/18/17 17:14 LDL Cholesterol Direct 80 mg/dL (50-130) 04/18/17 17:14 HDL Cholesterol 36 mg/dL (40-59) L 04/18/17 17:14 Cholesterol/HDL Ratio 3.66 % 04/18/17 17:14 Urine Color Yellow (Yellow) 04/23/17 16:45 Urine Turbidity Clear (Clear) 04/23/17 16:45 Urine pH 5.0 (5.0-7.0) 04/23/17 16:45 Ur Specific [place] 1.015 (1.003-1.030) 04/23/17 16:45 Urine Protein 30 mg/dl mg/dL (Negative) 04/23/17 16:45 Urine Glucose (UA) Neg mg/dL (Negative) 04/23/17 16:45 Urine Ketones Neg mg/dL (Negative) 04/23/17 16:45 Urine Blood Neg (Negative) 04/23/17 16:45 Urine Nitrite Neg (Negative) 04/23/17 16:45 Urine Bilirubin Neg (Negative) 04/23/17 16:45 Urine Urobilinogen < 2.0 mg/dL (<2.0) 04/23/17 16:45 Ur Leukocyte Esterase Tr (Negative) 04/23/17 16:45 Urine WBC (Auto) 2.0 /HPF (0.0-6.0) 04/23/17 16:45 Urine RBC (Auto) 3.0 /HPF (0.0-6.0) 04/23/17 16:45 U Epithel Cells (Auto) < 1.0 /HPF (0-13.0) 04/23/17 16:45 Hyaline Casts 1 /LPF 04/18/17 20:46 Urine Mucus Few /HPF 04/23/17 16:45 Urine Creatinine 172.7 mg/dL (0.1-20.0) H 04/23/17 16:45 Protein/Creatinin Ratio 0.33 04/23/17 16:45 Urine Total Protein 57 mg/dL (5-11.8) H 04/23/17 16:45
[2017-04-25] MEDS: NORCO 5/325 PO PRN (19:27)
[2017-04-26] MEDS: NORCO 5/325 PO PRN ×3 (00:28→22:15)
[2017-04-26 06:00] LABS: Calcium 8.1 mg/dL (8.4-10.2); Chloride 99.3 mmol/L (98-107); Potassium 5.3 mmol/L (3.6-5.0)
[2017-04-26] MEDS: NOVOLOG SUB-Q SCH ×4 (09:05→22:16)
[2017-04-26] MEDS: K-DUR PO SCH (09:07)
[2017-04-26] MEDS: APRESOLINE PO SCH ×3 (09:08→22:15)
[2017-04-26] MEDS: NORVASC PO SCH (09:08)
[2017-04-26] MEDS: PEPCID PO SCH (09:08)
[2017-04-26] MEDS: COREG PO SCH ×2 (09:09→22:14)
[2017-04-26] MEDS: BABY ASPIRIN PO SCH (09:09)
[2017-04-26] MEDS: LOVENOX SUB-Q SCH (09:10)
[2017-04-26] MEDS: KIONEX PO PRN (12:29)
--- NOTE | 2017-04-26 16:05 | Progress Note ---
Assessment and Plan /Bilateral lower extremity edema - likley from chronic venous stasis and renal failure - Echo is normal /Uncontrolled Hypertension, cont amlodipine 10 mg and hydralazine 100mg PO TID on current regimen /DM2 on a sliding scale insulin, Accu-Chek /Venous stasis ulcer - Wound care consulted /Debility - PT evaluated and recommended subacute rehabilitation /Acute renal failure, - Creatinine this morning was 2.9, worsened from yesterday value - nephrology consult appreciated, gentle hydration - Renal ultrasound negative /DVT prophylaxis - Patient is on Lovenox Disposition -Continue inpatient care until creatinine starts to trend down. Brief history: 71-year-old -Syrian male with past medical history significant for diastolic CHF, hypertension, diabetes who was admitted to the floor after he was presented to the emergency department complaining of worsening bilateral edema, shortness of breath. Now being monitored for worsening renal function. Hospitalist Physical Not in cardiopulmonary distress. Legally blind. The patient is obese. Vital signs as documented. Head exam is unremarkable. No scleral icterus . Neck is without jugular venous distension, thyromegaly, or carotid bruits. Lungs are clear to auscultation. Cardiac exam reveals regular rate and Rhythm. First and second heart sounds normal. No murmurs, rubs or gallops. Abdominal exam reveals normal bowel sounds, no masses, no organomegaly and no aortic enlargement. Extremities +1 pedal and pretibial edema, stasis ulcers. CONTAINER COORDINATOR: Alert and oriented 3. No focal weakness. Subjective Date of service: 04/26/17 Interval history: Patient was seen and evaluated at the bedside, patient denied chest pain, leg pain. His daughter Piedad was in the room and discussed the management plan with her. Objective - Constitutional Vitals: Vital Signs - 12hr 04/26/17 04/26/17 04/26/17 05:15 08:00 08:55 Temperature 98.8 F 98.2 F Pulse Rate 68 71 72 Respiratory 22 20 Rate Blood Pressure 149/58 154/61 O2 Sat by Pulse 97 96 Oximetry 04/26/17 04/26/17 09:08 09:09 Temperature Pulse Rate 72 72 Respiratory Rate Blood Pressure 154/61 154/61 O2 Sat by Pulse Oximetry - Labs CBC & Chem 7: 04/20/17 05:07 04/27/17 04:49 Labs: Abnormal lab results 1204/25/17 04/25/17 Range/Units 16:39 17:11 21:08 Potassium (3.6-5.0) mmol/L Carbon Dioxide (22-30) mmol/L BUN (9-20) mg/dL Creatinine (0.8-1.5) mg/dL Glucose (75-100) mg/dL POC Glucose 175 H 174 H 203 H (70-105) Calcium (8.4-10.2) mg/dL 04/26/17 04/26/17 Range/Units 04:00 12:27 Potassium 5.3 H (3.6-5.0) mmol/L Carbon Dioxide 31 H (22-30) mmol/L BUN 38 H (9-20) mg/dL Creatinine 2.9 H (0.8-1.5) mg/dL Glucose 110 H (75-100) mg/dL POC Glucose 135 H (70-105) Calcium 8.1 L (8.4-10.2) mg/dL
--- NOTE | 2017-04-26 19:01 | Progress Note ---
Assessment and Plan - Patient Problems (1) Acute kidney injury Current Visit: Yes Status: Acute Plan to address problem: Kidney function still worsening. Serologies pending. Diuretics on hold. Follow-up electrolytes and renal function (2) Chronic acquired lymphedema Current Visit: Yes Status: Acute Plan to address problem: Local measures like keeping lower extremities elevated, (3) Hyperkalemia Current Visit: Yes Status: Acute Plan to address problem: Give a dose of Kayexalate and then follow potassium (4) Essential (primary) hypertension Current Visit: Yes Status: Acute Plan to address problem: Follow up blood pressure on current medications (5) Type 2 diabetes mellitus with hyperglycemia Current Visit: Yes Status: Acute Plan to address problem: Blood sugar control per primary attending (6) Alkalosis, metabolic Current Visit: Yes Status: Acute Plan to address problem: Increased bicarbonate presumed secondary to contraction alkalosis. Diuretics on hold. Follow-up acid-base status (7) Obesity Current Visit: Yes Status: Acute Subjective Date of service: 04/26/17 Principal diagnosis: acute kidney injury Interval history: Patient seen lying In bed. Daughter at the bedside. He denies any complaints. No chest pain, shortness of breath, nausea or vomiting. Objective - Exam Narrative Exam: Obese Elderly -[place]vian male lying in bed in no acute distress HEENT: NCAT, pink oral mucous membrane Neck: Supple, no venous distention CVS: S1S2 RRR with no murmur, rub or gallop Chest: Clear to auscultation Abdomen: Obese, soft, nontender, no organomegaly, bowel sounds are present Extremities: mild edema thickened skin, hyperpigmentation Neuro: Awake, alert no focal deficits - Vital Signs Vital signs: Vital Signs - 12hr 04/26/17 04/26/17 04/26/17 08:00 08:55 09:08 Temperature 98.2 F Pulse Rate 71 72 72 Respiratory 20 Rate Blood Pressure 154/61 154/61 O2 Sat by Pulse 96 Oximetry 04/26/17 04/26/17 04/26/17 09:09 12:20 12:22 Temperature 98.5 F Pulse Rate 72 56 L Respiratory 20 Rate Blood Pressure 154/61 119/48 O2 Sat by Pulse 97 Oximetry 04/26/17 04/26/17 16:00 16:39 Temperature 97.7 F Pulse Rate 62 59 L Respiratory 20 Rate Blood Pressure 136/62 O2 Sat by Pulse 98 Oximetry - Lab 04/20/17 05:07 04/26/17 04:00 Most recent lab results Calcium 8.1 mg/dL (8.4-10.2) L 04/26/17 04:00 Urine Creatinine 172.7 mg/dL (0.1-20.0) H 04/23/17 16:45 Urine Total Protein 57 mg/dL (5-11.8) H 04/23/17 16:45
[2017-04-27 06:33] LABS: Calcium 8.3 mg/dL (8.4-10.2); Potassium 5.4 mmol/L (3.6-5.0)
[2017-04-27] MEDS: KIONEX PO PRN (06:51)
[2017-04-27] MEDS: NOVOLOG SUB-Q SCH ×4 (08:14→22:10)
--- NOTE | 2017-04-27 08:55 | Progress Note ---
Assessment and Plan - Patient Problems (1) Acute kidney injury Current Visit: Yes Status: Acute Plan to address problem: Kidney function still worsening. Serologies pending. I will reorder as I did not see any evidence that the results are actually pending Diuretics on hold. Follow-up electrolytes and renal function (2) Chronic acquired lymphedema Current Visit: Yes Status: Acute Plan to address problem: Local measures like keeping lower extremities elevated, and use of compression stockings. (3) Hyperkalemia Current Visit: Yes Status: Acute Plan to address problem: Give another dose of Kayexalate and then follow potassium (4) Essential (primary) hypertension Current Visit: Yes Status: Acute Plan to address problem: Follow up blood pressure on current medications (5) Type 2 diabetes mellitus with hyperglycemia Current Visit: Yes Status: Acute Plan to address problem: Blood sugar control per primary attending (6) Alkalosis, metabolic Current Visit: Yes Status: Acute Plan to address problem: Increased bicarbonate presumed secondary to contraction alkalosis. Diuretics on hold. Follow-up acid-base status (7) Obesity Current Visit: Yes Status: Acute Subjective Date of service: 04/27/17 Principal diagnosis: acute kidney injury Interval history: Patient seen lying In bed. Daughter at the bedside. He denies any complaints. No chest pain, shortness of breath, nausea or vomiting. Objective - Exam Narrative Exam: Obese Elderly -Indian male lying in bed in no acute distress HEENT: NCAT, pink oral mucous membrane Neck: Supple, no venous distention CVS: S1S2 RRR with no murmur, rub or gallop Chest: Clear to auscultation Abdomen: Obese, soft, nontender, no organomegaly, bowel sounds are present Extremities: mild edema thickened skin, hyperpigmentation with dressings in both legs Neuro: Awake, alert no focal deficits - Vital Signs Vital signs: Vital Signs - 12hr 04/26/17 04/26/17 04/27/17 22:14 22:15 00:00 Temperature Pulse Rate 64 64 Respiratory 20 Rate Blood Pressure 140/59 O2 Sat by Pulse Oximetry 04/27/17 01:10 Temperature 98.8 F Pulse Rate 62 Respiratory 20 Rate Blood Pressure 128/44 O2 Sat by Pulse 97 Oximetry - Lab 04/20/17 05:07 04/27/17 04:49 Most recent lab results Calcium 8.3 mg/dL (8.4-10.2) L 12/14/17 04:49 Urine Creatinine 172.7 mg/dL (0.1-20.0) H 04/23/17 16:45 Urine Total Protein 57 mg/dL (5-11.8) H 04/23/17 16:45
[2017-04-27] MEDS: APRESOLINE PO SCH ×3 (09:08→22:11)
[2017-04-27] MEDS: BABY ASPIRIN PO SCH (10:20)
[2017-04-27] MEDS: COREG PO SCH ×2 (10:20→22:11)
[2017-04-27] MEDS: PEPCID PO SCH (10:21)
[2017-04-27] MEDS: LOVENOX SUB-Q SCH (10:21)
--- NOTE | 2017-04-27 15:54 | Progress Note ---
Assessment and Plan /Bilateral lower extremity edema - likley from chronic venous stasis and renal failure - Echo is normal /Uncontrolled Hypertension, cont amlodipine 10 mg and hydralazine 100mg PO TID on current regimen /DM2 on a sliding scale insulin, Accu-Chek /Venous stasis ulcer - Wound care consulted /Debility - PT evaluated and recommended subacute rehabilitation /Acute renal failure, - Creatinine this morning was 3.1, worsened from yesterday value - nephrology consult appreciated, gentle hydration - Renal ultrasound negative /hyperkalemia - k level 5.3 today - s/p one dose of katexalate - monitor k level daily /DVT prophylaxis - Patient is on Lovenox Disposition -Continue inpatient care until creatinine starts to trend down. Brief history: 71-year-old -Czech male with past medical history significant for diastolic CHF, hypertension, diabetes who was admitted to the floor after he was presented to the emergency department complaining of worsening bilateral edema, shortness of breath. Now being monitored for worsening renal function. Hospitalist Physical Not in cardiopulmonary distress. Legally blind. The patient is obese. Vital signs as documented. Head exam is unremarkable. No scleral icterus . Neck is without jugular venous distension, thyromegaly, or carotid bruits. Lungs are clear to auscultation. Cardiac exam reveals regular rate and Rhythm. First and second heart sounds normal. No murmurs, rubs or gallops. Abdominal exam reveals normal bowel sounds, no masses, no organomegaly and no aortic enlargement. Extremities +1 pedal and pretibial edema, stasis ulcers. ARCHIVIST: Alert and oriented 3. No focal weakness. Subjective Date of service: 04/27/17 Principal diagnosis: acute kidney injury Interval history: Patient was seen and evaluated at the bedside, patient denied chest pain, leg pain. His daughter Piedad was in the room and discussed the management plan with her. Objective - Constitutional Vitals: Vital Signs - 12hr 04/27/17 04/27/17 04/27/17 09:39 11:41 12:16 Temperature 98.6 F Pulse Rate 61 64 Respiratory 20 Rate Blood Pressure 141/59 [Right] O2 Sat by Pulse 96 96 Oximetry - Labs CBC & Chem 7: 04/20/17 05:07 04/28/17 04:42 Labs: Abnormal lab results 04/26/17 04/26/17 04/27/17 Range/Units 16:42 21:36 04:49 Potassium 5.4 H (3.6-5.0) mmol/L BUN 44 H (9-20) mg/dL Creatinine 3.1 H (0.8-1.5) mg/dL POC Glucose 157 H 179 H (70-105) Calcium 8.3 L (8.4-10.2) mg/dL 04/27/17 Range/Units 11:51 Potassium (3.6-5.0) mmol/L BUN (9-20) mg/dL Creatinine (0.8-1.5) mg/dL POC Glucose 121 H (70-105) Calcium (8.4-10.2) mg/dL
[2017-04-28 06:43] LABS: Calcium 8.4 mg/dL (8.4-10.2); Chloride 98.2 mmol/L (98-107); Potassium 5.1 mmol/L (3.6-5.0)
[2017-04-28] MEDS: APRESOLINE PO SCH ×3 (08:10→22:01)
[2017-04-28] MEDS: NOVOLOG SUB-Q SCH ×4 (08:11→22:01)
--- NOTE | 2017-04-28 09:12 | Progress Note ---
Assessment and Plan - Patient Problems (1) Acute kidney injury Current Visit: Yes Status: Acute Plan to address problem: Kidney function now stabilizing. Diuretics still on hold. Follow-up electrolytes and renal function. Hopefully kidney function starts to improve tomorrow so patient can be discharged to rehabilitation. I will call the patient's daughter Jeanine on the phone. She had to go back to [place] yesterday (2) Chronic acquired lymphedema Current Visit: Yes Status: Acute Plan to address problem: Local measures like keeping lower extremities elevated, and use of compression stockings. (3) Hyperkalemia Current Visit: Yes Status: Acute Plan to address problem: Give another dose of Kayexalate and then follow potassium (4) Essential (primary) hypertension Current Visit: Yes Status: Acute Plan to address problem: Follow up blood pressure on current medications (5) Type 2 diabetes mellitus with hyperglycemia Current Visit: Yes Status: Acute Plan to address problem: Blood sugar control per primary attending (6) Alkalosis, metabolic Current Visit: Yes Status: Acute Plan to address problem: Increased bicarbonate presumed secondary to contraction alkalosis. Diuretics on hold. Bicarbonate has decreased (7) Obesity Current Visit: Yes Status: Acute Subjective Date of service: 04/28/17 Principal diagnosis: acute kidney injury Interval history: Patient seen lying In bed. No family at the bedside. He denies any complaints. No chest pain, shortness of breath, nausea or vomiting. He is more talkative today Objective - Exam Narrative Exam: Obese Elderly -Singaporean male lying in bed in no acute distress HEENT: NCAT, pink oral mucous membrane Neck: Supple, no venous distention CVS: S1S2 RRR with no murmur, rub or gallop Chest: Clear to auscultation Abdomen: Obese, soft, nontender, no organomegaly, bowel sounds are present Extremities: mild edema thickened skin, hyperpigmentation with dressings in both legs Neuro: Awake, alert no focal deficits - Vital Signs Vital signs: Vital Signs - 12hr 04/28/17 04/28/17 00:20 04:20 Temperature 98.3 F Pulse Rate 52 L 53 L Respiratory 18 Rate Blood Pressure 130/40 Blood Pressure 136/79 [Right] O2 Sat by Pulse 97 95 Oximetry - Lab 04/20/17 05:07 04/28/17 04:42 Most recent lab results Calcium 8.4 mg/dL (8.4-10.2) 04/28/17 04:42 Urine Creatinine 172.7 mg/dL (0.1-20.0) H 04/23/17 16:45 Urine Total Protein 57 mg/dL (5-11.8) H 04/23/17 16:45
[2017-04-28] MEDS ORDERED: KIONEX PO ONE (09:13)
[2017-04-28] MEDS: COREG PO SCH ×2 (09:32→22:02)
[2017-04-28] MEDS: PEPCID PO SCH (09:32)
[2017-04-28] MEDS: BABY ASPIRIN PO SCH (09:32)
[2017-04-28] MEDS: LOVENOX SUB-Q SCH ×2 (09:32→11:58)
--- NOTE | 2017-04-28 14:53 | Progress Note ---
Assessment and Plan /Bilateral lower extremity edema - likley from chronic venous stasis and renal failure - Echo is normal /Uncontrolled Hypertension, cont coreg 6.25mg BID and hydralazine 100mg PO TID on current regimen /DM2 on a sliding scale insulin, Accu-Chek /Venous stasis ulcer - Wound care following /Debility - PT evaluated and recommended subacute rehabilitation /Acute renal failure, - Creatinine cont to decline - nephrology consult appreciated, - Renal ultrasound negative /hyperkalemia - k level 5.1 today - ordered another dose of katexalate - monitor k level daily /DVT prophylaxis - Patient is on Lovenox Disposition -Continue inpatient care until creatinine starts to trend down. Brief history: 71-year-old -Salvad[place] male with past medical history significant for diastolic CHF, hypertension, diabetes who was admitted to the floor after he was presented to the emergency department complaining of worsening bilateral edema, shortness of breath. Now being monitored for worsening renal function. Hospitalist Physical Not in cardiopulmonary distress. Legally blind. The patient is obese. Vital signs as documented. Head exam is unremarkable. No scleral icterus . Neck is without jugular venous distension, thyromegaly, or carotid bruits. Lungs are clear to auscultation. Cardiac exam reveals regular rate and Rhythm. First and second heart sounds normal. No murmurs, rubs or gallops. Abdominal exam reveals normal bowel sounds, no masses, no organomegaly and no aortic enlargement. Extremities +1 pedal and pretibial edema, stasis ulcers. 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 No focal weakness. Subjective Date of service: 04/28/17 Principal diagnosis: acute kidney injury Interval history: Patient was seen and evaluated at the bedside, patient denied chest pain, leg pain. Objective - Constitutional Vitals: Vital Signs - 12hr 04/28/17 04/28/17 04:20 10:43 Pulse Rate 53 L 59 L Respiratory 20 Rate Blood Pressure 130/40 Blood Pressure 160/60 [Right] O2 Sat by Pulse 95 97 Oximetry - Labs CBC & Chem 7: 04/20/17 05:07 04/29/17 04:36 Labs: Abnormal lab results 04/27/17 04/27/17 04/27/17 Range/Units 16:43 17:05 22:00 Potassium 5.1 H (3.6-5.0) mmol/L BUN (9-20) mg/dL Creatinine (0.8-1.5) mg/dL POC Glucose 122 H 254 H (70-105) 04/28/17 04/28/17 Range/Units 04:42 11:59 Potassium 5.1 H (3.6-5.0) mmol/L BUN 46 H (9-20) mg/dL Creatinine 3.1 H (0.8-1.5) mg/dL POC Glucose 118 H (70-105)
[2017-04-29 05:57] LABS: Calcium 8.2 mg/dL (8.4-10.2); Chloride 96.2 mmol/L (98-107); Magnesium 1.7 mg/dL (1.7-2.3); Phosphorous 4.6 mg/dL (2.5-4.5); Potassium 4.8 mmol/L (3.6-5.0)
[2017-04-29] MEDS: APRESOLINE PO SCH ×2 (09:10→16:56)
[2017-04-29] MEDS: NOVOLOG SUB-Q SCH ×4 (09:41→22:39)
[2017-04-29] MEDS: COREG PO SCH ×2 (10:42→22:39)
[2017-04-29] MEDS: PEPCID PO SCH (10:42)
[2017-04-29] MEDS: LOVENOX SUB-Q SCH (10:42)
[2017-04-29] MEDS: BABY ASPIRIN PO SCH (10:42)
[2017-04-29] MEDS ORDERED: NACL 0.9% 1000 ML 1,000 ML IV SCH (12:00)
--- NOTE | 2017-04-29 12:00 | Progress Note ---
Assessment and Plan - Patient Problems (1) Acute kidney injury Current Visit: Yes Status: Acute Plan to address problem: Renal function marginally worse today, suspect pre-renal azotemia with decreased urine output. Will give NS 100ml/hr for 1 day. Follow-up electrolytes and renal function. (2) Chronic acquired lymphedema Current Visit: Yes Status: Acute Plan to address problem: Local measures like keeping lower extremities elevated, and use of compression stockings. (3) Essential (primary) hypertension Current Visit: Yes Status: Acute Plan to address problem: Follow up blood pressure on current medications. (4) Hyperkalemia Current Visit: Yes Status: Acute Plan to address problem: improved with kayexalate. cont 2g K renal diet (5) Type 2 diabetes mellitus with hyperglycemia Current Visit: Yes Status: Acute Plan to address problem: Blood sugar control per primary attending (6) Alkalosis, metabolic Current Visit: Yes Status: Acute Plan to address problem: likely secondary to contraction alkalosis. Diuretics on hold. IV NS x 1 day (7) Obesity Current Visit: Yes Status: Acute Subjective Date of service: 04/29/17 Principal diagnosis: acute kidney injury Interval history: Pt awake, alert, in NAD Objective - Vital Signs Vital signs: Vital Signs - 12hr 04/29/17 04/29/17 04/29/17 00:35 04:16 08:34 Temperature 98.6 F 98.4 F 98.5 F Pulse Rate 50 L 47 L 47 L Respiratory 22 20 20 Rate Blood Pressure 125/50 136/44 140/49 O2 Sat by Pulse 97 97 97 Oximetry - General Appearance General appearance: well-developed, well-nourished, appears stated age EENT: ATNC, PERRL, mucous membranes moist Neck: no JVD Respiratory: Present: Clear to Ascultation Cardiology: regular, S1S2 Gastrointestinal: normoactive bowel sounds Integumentary: no rash, other (no edema ) Neurologic: no focal deficit, alert and oriented x3, strength 5/5, CN 3-12 intact Psychiatric: mood/affect appropriate, cooperative - Lab 04/20/17 05:07 04/29/17 04:36 Most recent lab results Calcium 8.2 mg/dL (8.4-10.2) L 04/29/17 04:36 Phosphorus 4.60 mg/dL (2.5-4.5) H 04/29/17 04:36 Magnesium 1.70 mg/dL (1.7-2.3) 04/29/17 04:36 Urine Creatinine 172.7 mg/dL (0.1-20.0) H 04/23/17 16:45 Urine Total Protein 57 mg/dL (5-11.8) H 04/23/17 16:45
--- NOTE | 2017-04-29 13:27 | Progress Note ---
Assessment and Plan /Acute renal failure, - Creatinine cont to decline - nephrology consult appreciated, - Renal ultrasound negative - started on NS today /hyperkalemia - k level 4.8 today - give katexalate if k level >5.0 - monitor k level daily /Bilateral lower extremity edema - likley from chronic venous stasis and renal failure - Echo is normal /Uncontrolled Hypertension, cont coreg 6.25mg BID and hydralazine 100mg PO TID on current regimen /DM2 on a sliding scale insulin, Accu-Chek /Venous stasis ulcer - Wound care following /Debility - PT evaluated and recommended subacute rehabilitation /DVT prophylaxis - Patient is on Lovenox Disposition -Continue inpatient care until creatinine starts to trend down. Brief history: 71-year-old -Congolese male with past medical history significant for diastolic CHF, hypertension, diabetes who was admitted to the floor after he was presented to the emergency department complaining of worsening bilateral edema, shortness of breath. Now being monitored for worsening renal function. Hospitalist Physical Not in cardiopulmonary distress. Legally blind. The patient is obese. Vital signs as documented. Head exam is unremarkable. No scleral icterus . Neck is without jugular venous distension, thyromegaly, or carotid bruits. Lungs are clear to auscultation. Cardiac exam reveals regular rate and Rhythm. First and second heart sounds normal. No murmurs, rubs or gallops. Abdominal exam reveals normal bowel sounds, no masses, no organomegaly and no aortic enlargement. Extremities +1 pedal and pretibial edema, stasis ulcers. 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 No focal weakness. Subjective Date of service: 04/29/17 Principal diagnosis: acute kidney injury Interval history: Patient was seen and evaluated at the bedside, patient denied chest pain, leg pain. Objective - Constitutional Vitals: Vital Signs - 12hr 04/29/17 04/29/17 04:16 08:34 Temperature 98.4 F 98.5 F Pulse Rate 47 L 47 L Respiratory 20 20 Rate Blood Pressure 136/44 140/49 O2 Sat by Pulse 97 97 Oximetry - Labs CBC & Chem 7: 04/20/17 05:07 04/29/17 04:36 Labs: Abnormal lab results 04/28/17 04/29/17 Range/Units 20:40 04:36 Chloride 96.2 L (98-107) mmol/L BUN 50 H (9-20) mg/dL Creatinine 3.6 H (0.8-1.5) mg/dL Glucose 149 H (75-100) mg/dL POC Glucose 220 H (70-105) Calcium 8.2 L (8.4-10.2) mg/dL Phosphorus 4.60 H (2.5-4.5) mg/dL
[2017-04-29] MEDS: NORCO 5/325 PO PRN (16:56)
[2017-04-30 06:20] LABS: Calcium 7.9 mg/dL (8.4-10.2); Chloride 95.5 mmol/L (98-107); Potassium 4.7 mmol/L (3.6-5.0)
[2017-04-30] MEDS: APRESOLINE PO SCH ×4 (06:51→20:43)
[2017-04-30] MEDS: NOVOLOG SUB-Q SCH ×4 (08:32→22:14)
[2017-04-30] MEDS: LOVENOX SUB-Q SCH (09:16)
[2017-04-30] MEDS: PEPCID PO SCH (09:16)
[2017-04-30] MEDS: BABY ASPIRIN PO SCH (09:17)
[2017-04-30] MEDS: COREG PO SCH ×2 (09:17→22:18)
--- NOTE | 2017-04-30 12:54 | Progress Note ---
Assessment and Plan - Patient Problems (1) Acute kidney injury Current Visit: Yes Status: Acute Plan to address problem: Renal function worse today, BUN/Cr 60/4.5mg/dl despite IV NS. also no UOP documented despite indwelling scales along with penile swelling. check bladder US , if residual >400cc reposition and flush scales. cont supportive care for THOMAS avoid nephrotoxins, NSAIDs, IV contrast. D/w RN (2) Chronic acquired lymphedema Current Visit: Yes Status: Acute Plan to address problem: Local measures like keeping lower extremities elevated, and use of compression stockings. (3) Essential (primary) hypertension Current Visit: Yes Status: Acute Plan to address problem: Follow up blood pressure on current medications. (4) Hyperkalemia Current Visit: Yes Status: Acute Plan to address problem: improved with kayexalate. cont 2g K renal diet (5) Type 2 diabetes mellitus with hyperglycemia Current Visit: Yes Status: Acute Plan to address problem: Blood sugar control per primary attending (6) Alkalosis, metabolic Current Visit: Yes Status: Acute Plan to address problem: likely secondary to contraction alkalosis. Diuretics on hold. (7) Obesity Current Visit: Yes Status: Chronic Subjective Date of service: 04/30/17 Principal diagnosis: acute kidney injury Interval history: Pt awake, alert, in NAD Objective - Vital Signs Vital signs: Vital Signs - 12hr 04/30/17 04/30/17 04/30/17 01:40 04:51 08:17 Temperature 98.4 F 97.7 F 98.3 F Pulse Rate 46 L 51 L 48 L Respiratory 21 21 18 Rate Blood Pressure 149/55 152/51 152/60 O2 Sat by Pulse 97 97 99 Oximetry - General Appearance General appearance: well-nourished, appears stated age EENT: ATNC, PERRL, mucous membranes moist Neck: no JVD Respiratory: Present: Clear to Ascultation Cardiology: regular, S1S2 Gastrointestinal: normoactive bowel sounds, obese Integumentary: no rash, other (no edema b/l LE, however penile swelling noted. ) Neurologic: no focal deficit, alert and oriented x3, strength 5/5, CN 3-12 intact Psychiatric: mood/affect appropriate, cooperative - Lab 04/20/17 05:07 04/30/17 05:07 Most recent lab results Calcium 7.9 mg/dL (8.4-10.2) L 04/30/17 05:07 Phosphorus 4.60 mg/dL (2.5-4.5) H 04/29/17 04:36 Magnesium 1.70 mg/dL (1.7-2.3) 04/29/17 04:36 Urine Creatinine 172.7 mg/dL (0.1-20.0) H 04/23/17 16:45 Urine Total Protein 57 mg/dL (5-11.8) H 04/23/17 16:45
[2017-04-30] MEDS: NACL 0.9% 1000 ML 1,000 ML IV SCH (14:46)
--- NOTE | 2017-04-30 15:30 | Progress Note ---
Assessment and Plan /Acute renal failure, - Creatinine cont to decline - nephrology consult appreciated, - Renal ultrasound negative - cont on NS, avoid nephrotoxins - Cr 4.5 today /hyperkalemia - k level 4.7 today - give katexalate if k level >5.0 - monitor k level daily /Bilateral lower extremity edema - likley from chronic venous stasis and renal failure - Echo is normal /Uncontrolled Hypertension, cont coreg 6.25mg BID and hydralazine 100mg PO TID on current regimen /DM2 on a sliding scale insulin, Accu-Chek /UTI will start on levaquin 250 mg po daily obtain urine cx /Venous stasis ulcer - Wound care following /Debility - PT evaluated and recommended subacute rehabilitation /DVT prophylaxis - Patient is on Lovenox Disposition -Continue inpatient care until creatinine starts to trend down. Brief history: 71-year-old -[place]ian male with past medical history significant for diastolic CHF, hypertension, diabetes who was admitted to the floor after he was presented to the emergency department complaining of worsening bilateral edema, shortness of breath. Now being monitored for worsening renal function. Hospitalist Physical Not in cardiopulmonary distress. Legally blind. The patient is obese. Vital signs as documented. Head exam is unremarkable. No scleral icterus . Neck is without jugular venous distension, thyromegaly, or carotid bruits. Lungs are clear to auscultation. Cardiac exam reveals regular rate and Rhythm. First and second heart sounds normal. No murmurs, rubs or gallops. Abdominal exam reveals normal bowel sounds, no masses, no organomegaly and no aortic enlargement. Extremities +1 pedal and pretibial edema, stasis ulcers. 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 No focal weakness. Subjective Date of service: 04/30/17 Principal diagnosis: acute kidney injury Interval history: Patient was seen and evaluated at the bedside, patient denied chest pain, leg pain. Objective - Constitutional Vitals: Vital Signs - 12hr 04/30/17 04/30/17 04:51 08:17 Temperature 97.7 F 98.3 F Pulse Rate 51 L 48 L Respiratory 21 18 Rate Blood Pressure 152/51 152/60 O2 Sat by Pulse 97 99 Oximetry - Labs CBC & Chem 7: 04/20/17 05:07 04/30/17 05:07 Labs: Abnormal lab results 04/29/17 04/29/17 04/29/17 Range/Units 08:37 12:16 17:25 Chloride (98-107) mmol/L BUN (9-20) mg/dL Creatinine (0.8-1.5) mg/dL Glucose (75-100) mg/dL POC Glucose 138 H 210 H 151 H (70-105) Calcium (8.4-10.2) mg/dL 04/29/17 04/30/17 Range/Units 21:57 05:07 Chloride 95.5 L (98-107) mmol/L BUN 60 H (9-20) mg/dL Creatinine 4.5 H (0.8-1.5) mg/dL Glucose 145 H (75-100) mg/dL POC Glucose 118 H (70-105) Calcium 7.9 L (8.4-10.2) mg/dL
[2017-04-30 22:46] LABS: Bacteria,Urine 1+ /HPF (Negative); Bilirubin,Urine NEG (Negative); Blood,Urine LG (Negative); Ketones,Urine NEG (Negative); Leukocyte Esterase,Urine LG (Negative); Mucus,Urine FEW /HPF; Nitrite,Urine NEG (Negative)
[2017-04-30 22:47] LABS: RBC,Urine > 182.0 /HPF (0.0-6.0)
[2017-05-01] MEDS: NACL 0.9% 1000 ML 1,000 ML IV SCH (03:46)
[2017-05-01 06:08] LABS: Albumin 3.1 g/dL (3.9-5); Albumin/Globulin Ratio 0.8 %; Bilirubin,Total 0.4 mg/dL (0.1-1.2); Calcium 7.9 mg/dL (8.4-10.2); Chloride 93.5 mmol/L (98-107); Potassium 5.1 mmol/L (3.6-5.0); Total Protein 7.1 g/dL (6.3-8.2)
[2017-05-01] MEDS: NOVOLOG SUB-Q SCH ×4 (08:27→22:33)
[2017-05-01] MEDS: APRESOLINE PO SCH ×3 (08:41→20:54)
[2017-05-01] MEDS: BABY ASPIRIN PO SCH (09:59)
[2017-05-01] MEDS: PEPCID PO SCH (09:59)
[2017-05-01] MEDS: COREG PO SCH (10:00)
[2017-05-01] MEDS: LOVENOX SUB-Q SCH (10:00)
[2017-05-01] MEDS: LEVAQUIN PO SCH (10:00)
--- NOTE | 2017-05-01 15:47 | Progress Note ---
<ARMINDA JO - Last Filed: 05/01/17 15:59> Assessment and Plan Assessment and plan: Acute renal failure, - Creatinine beginning to increase - nephrology consult appreciated, - Renal ultrasound negative - cont on NS, avoid nephrotoxins - Cr 5.3 today hyperkalemia - k level 5.1 today - katexalate given - monitor k level daily Bilateral lower extremity edema - likley from chronic venous stasis and renal failure - Echo is normal Uncontrolled Hypertension cont coreg 6.25mg BID and hydralazine 100mg PO TID on current regimen DM2 on a sliding scale insulin, Accu-Chek, ADA diet UTI will start on levaquin 250 mg po daily obtain urine cx Venous stasis ulcer - Wound care following Debility - PT evaluated and recommended subacute rehabilitation DVT prophylaxis - Patient is on Lovenox Disposition -Continue inpatient care until creatinine starts to trend down. History Interval history: Pt seen and examined. Very drowsy. Denies CP, SOB, NV. Nurse notes and labs reviewed. Hospitalist Physical - Constitutional Vitals: Temp Pulse Resp BP Pulse Ox 97.7 F 36 L 20 129/44 97 05/01/17 04:35 05/01/17 12:42 05/01/17 04:35 05/01/17 04:35 05/01/17 00:05 General appearance: Present: no acute distress, well-nourished, obese - EENT ENT: hearing intact, clear oral mucosa, other (Legally blind) - Neck Neck: Present: supple, normal ROM - Respiratory Respiratory effort: normal Respiratory: bilateral: CTA - Cardiovascular Rhythm: regular Heart Sounds: Present: S1 & S2 - Extremities Extremity abnormal: edema, other (stasis ulcers) Peripheral Pulses: within normal limits - Abdominal General gastrointestinal: soft, non-tender - Integumentary Integumentary: Present: clear, warm, dry - Psychiatric Psychiatric: appropriate mood/affect, cooperative - Neurologic Neurologic: CNII-XII intact, moves all extremities - Allied Health Allied health notes reviewed: nursing Results - Labs CBC & Chem 7: 04/20/17 05:07 05/01/17 04:57 Labs: Laboratory Last Values WBC 7.3 K/mm3 (4.5-11.0) 04/20/17 05:07 RBC 3.49 M/mm3 (3.65-5.03) L 04/20/17 05:07 Hgb 9.3 gm/dl (11.8-15.2) L 04/20/17 05:07 Hct 28.7 % (35.5-45.6) L 04/20/17 05:07 MCV 82 fl (84-94) L 04/20/17 05:07 MCH 27 pg (28-32) L 04/20/17 05:07 MCHC 33 % (32-34) 04/20/17 05:07 RDW 14.5 % (13.2-15.2) 04/20/17 05:07 Plt Count 296 K/mm3 (140-440) 04/20/17 05:07 Lymph % (Auto) 20.3 % (13.4-35.0) 04/20/17 05:07 [place] % (Auto) 9.7 % (0.0-7.3) H 04/20/17 05:07 Eos % (Auto) 4.4 % (0.0-4.3) H 04/20/17 05:07 Baso % (Auto) 0.5 % (0.0-1.8) 04/20/17 05:07 Lymph # 1.5 K/mm3 (1.2-5.4) 04/20/17 05:07 [place] # 0.7 K/mm3 (0.0-0.8) 04/20/17 05:07 Eos # 0.3 K/mm3 (0.0-0.4) 04/20/17 05:07 Baso # 0.0 K/mm3 (0.0-0.1) 04/20/17 05:07 Seg Neutrophils % 65.1 % (40.0-70.0) 04/20/17 05:07 Seg Neutrophils # 4.8 K/mm3 (1.8-7.7) 04/20/17 05:07 PT 17.7 Sec. (12.2-14.9) H 04/18/17 17:14 INR 1.38 (0.87-1.13) H 04/18/17 17:14 APTT 39.2 Sec. (24.2-36.6) H 04/18/17 17:14 Sodium 136 mmol/L (137-145) L 05/01/17 04:57 Potassium 5.1 mmol/L (3.6-5.0) H 05/01/17 04:57 Chloride 93.5 mmol/L (98-107) L 05/01/17 04:57 Carbon Dioxide 27 mmol/L (22-30) 05/01/17 04:57 Anion Gap 21 mmol/L 05/01/17 04:57 BUN 64 mg/dL (9-20) H 05/01/17 04:57 Creatinine 5.3 mg/dL (0.8-1.5) H 05/01/17 04:57 Estimated GFR 13 ml/min 05/01/17 04:57 BUN/Creatinine Ratio 12 % 05/01/17 04:57 Glucose 112 mg/dL (75-100) H 05/01/17 04:57 POC Glucose 184 (70-105) H 04/30/17 20:59 Calcium 7.9 mg/dL (8.4-10.2) L 05/01/17 04:57 Phosphorus 4.60 mg/dL (2.5-4.5) H 04/29/17 04:36 Magnesium 1.70 mg/dL (1.7-2.3) 04/29/17 04:36 Total Bilirubin 0.40 mg/dL (0.1-1.2) 05/01/17 04:57 AST 36 units/L (5-40) 05/01/17 04:57 ALT 31 units/L (7-56) 05/01/17 04:57 Alkaline Phosphatase 255 units/L (35-129) H 05/01/17 04:57 Total Creatine Kinase 277 units/L (55-170) H 04/19/17 12:30 CK-MB (CK-2) 7.4 ng/mL (0.0-4.0) H 04/19/17 12:30 CK-MB (CK-2) Rel Index 2.6 (0-4) 04/19/17 12:30 Troponin T 0.115 ng/mL (0.00-0.029) H* 04/19/17 12:30 NT-Pro-B Natriuret Pep 3484 pg/mL (0-900) H 04/18/17 17:14 Total Protein 7.1 g/dL (6.3-8.2) 05/01/17 04:57 Albumin 3.1 g/dL (3.9-5) L 05/01/17 04:57 Albumin/Globulin Ratio 0.8 % 05/01/17 04:57 Triglycerides 81 mg/dL (2-149) 04/18/17 17:14 Cholesterol 132 mg/dL (50-199) 04/18/17 17:14 LDL Cholesterol Direct 80 mg/dL (50-130) 04/18/17 17:14 HDL Cholesterol 36 mg/dL (40-59) L 04/18/17 17:14 Cholesterol/HDL Ratio 3.66 % 04/18/17 17:14 Urine Color Ethel (Yellow) 04/30/17 22:27 Urine Turbidity Clear (Clear) 04/30/17 22:27 Urine pH 5.0 (5.0-7.0) 04/30/17 22:27 Ur Specific [place] 1.021 (1.003-1.030) 04/30/17 22:27 Urine Protein 100 mg/dl mg/dL (Negative) 04/30/17 22:27 Urine Glucose (UA) 50 mg/dL (Negative) 04/30/17 22:27 Urine Ketones Neg mg/dL (Negative) 04/30/17 22:27 Urine Blood Lg (Negative) 04/30/17 22:27 Urine Nitrite Neg (Negative) 04/30/17 22:27 Urine Bilirubin Neg (Negative) 04/30/17 22:27 Urine Urobilinogen 2.0 mg/dL (<2.0) 04/30/17 22:27 Ur Leukocyte Esterase Lg (Negative) 04/30/17 22:27 Urine WBC (Auto) 114.0 /HPF (0.0-6.0) H 04/30/17 22:27 Urine RBC (Auto) > 182.0 /HPF (0.0-6.0) 04/30/17 22:27 U Epithel Cells (Auto) < 1.0 /HPF (0-13.0) 04/23/17 16:45 Urine Bacteria (Auto) 1+ /HPF (Negative) 04/30/17 22:27 Hyaline Casts 1 /LPF 04/18/17 20:46 Urine Mucus Few /HPF 04/30/17 22:27 Urine Creatinine 172.7 mg/dL (0.1-20.0) H 04/23/17 16:45 Protein/Creatinin Ratio 0.33 04/23/17 16:45 Urine Total Protein 57 mg/dL (5-11.8) H 04/23/17 16:45 <MICAELA RAIN - Last Filed: 05/01/17 18:03> Assessment and Plan Assessment and plan: Patient is noncompliant with care. Awaiting placement at a correction facility Hospitalist Physical - Constitutional Vitals: Temp Pulse Resp BP Pulse Ox 97.7 F 36 L 20 129/44 97 05/01/17 04:35 05/01/17 12:42 05/01/17 04:35 05/01/17 04:35 05/01/17 00:05 Results - Labs CBC & Chem 7: 04/20/17 05:07 05/01/17 04:57 Labs: Laboratory Last Values WBC 7.3 K/mm3 (4.5-11.0) 04/20/17 05:07 RBC 3.49 M/mm3 (3.65-5.03) L 04/20/17 05:07 Hgb 9.3 gm/dl (11.8-15.2) L 04/20/17 05:07 Hct 28.7 % (35.5-45.6) L 04/20/17 05:07 MCV 82 fl (84-94) L 04/20/17 05:07 MCH 27 pg (28-32) L 04/20/17 05:07 MCHC 33 % (32-34) 04/20/17 05:07 RDW 14.5 % (13.2-15.2) 04/20/17 05:07 Plt Count 296 K/mm3 (140-440) 04/20/17 05:07 Lymph % (Auto) 20.3 % (13.4-35.0) 04/20/17 05:07 [place] % (Auto) 9.7 % (0.0-7.3) H 04/20/17 05:07 Eos % (Auto) 4.4 % (0.0-4.3) H 04/20/17 05:07 Baso % (Auto) 0.5 % (0.0-1.8) 04/20/17 05:07 Lymph # 1.5 K/mm3 (1.2-5.4) 04/20/17 05:07 [place] # 0.7 K/mm3 (0.0-0.8) 04/20/17 05:07 Eos # 0.3 K/mm3 (0.0-0.4) 04/20/17 05:07 Baso # 0.0 K/mm3 (0.0-0.1) 04/20/17 05:07 Seg Neutrophils % 65.1 % (40.0-70.0) 04/20/17 05:07 Seg Neutrophils # 4.8 K/mm3 (1.8-7.7) 04/20/17 05:07 PT 17.7 Sec. (12.2-14.9) H 04/18/17 17:14 INR 1.38 (0.87-1.13) H 04/18/17 17:14 APTT 39.2 Sec. (24.2-36.6) H 04/18/17 17:14 Sodium 136 mmol/L (137-145) L 05/01/17 04:57 Potassium 5.1 mmol/L (3.6-5.0) H 05/01/17 04:57 Chloride 93.5 mmol/L (98-107) L 05/01/17 04:57 Carbon Dioxide 27 mmol/L (22-30) 05/01/17 04:57 Anion Gap 21 mmol/L 05/01/17 04:57 BUN 64 mg/dL (9-20) H 05/01/17 04:57 Creatinine 5.3 mg/dL (0.8-1.5) H 05/01/17 04:57 Estimated GFR 13 ml/min 05/01/17 04:57 BUN/Creatinine Ratio 12 % 05/01/17 04:57 Glucose 112 mg/dL (75-100) H 05/01/17 04:57 POC Glucose 193 (70-105) H 05/01/17 16:48 Calcium 7.9 mg/dL (8.4-10.2) L 05/01/17 04:57 Phosphorus 4.60 mg/dL (2.5-4.5) H 04/29/17 04:36 Magnesium 1.70 mg/dL (1.7-2.3) 04/29/17 04:36 Total Bilirubin 0.40 mg/dL (0.1-1.2) 05/01/17 04:57 AST 36 units/L (5-40) 05/01/17 04:57 ALT 31 units/L (7-56) 05/01/17 04:57 Alkaline Phosphatase 255 units/L (35-129) H 05/01/17 04:57 Total Creatine Kinase 277 units/L (55-170) H 04/19/17 12:30 CK-MB (CK-2) 7.4 ng/mL (0.0-4.0) H 04/19/17 12:30 CK-MB (CK-2) Rel Index 2.6 (0-4) 04/19/17 12:30 Troponin T 0.115 ng/mL (0.00-0.029) H* 04/19/17 12:30 NT-Pro-B Natriuret Pep 3484 pg/mL (0-900) H 04/18/17 17:14 Total Protein 7.1 g/dL (6.3-8.2) 05/01/17 04:57 Albumin 3.1 g/dL (3.9-5) L 05/01/17 04:57 Albumin/Globulin Ratio 0.8 % 05/01/17 04:57 Triglycerides 81 mg/dL (2-149) 04/18/17 17:14 Cholesterol 132 mg/dL (50-199) 04/18/17 17:14 LDL Cholesterol Direct 80 mg/dL (50-130) 04/18/17 17:14 HDL Cholesterol 36 mg/dL (40-59) L 04/18/17 17:14 Cholesterol/HDL Ratio 3.66 % 04/18/17 17:14 Urine Color [place] (Yellow) 04/30/17 22:27 Urine Turbidity Clear (Clear) 04/30/17 22:27 Urine pH 5.0 (5.0-7.0) 04/30/17 22:27 Ur Specific [place] 1.021 (1.003-1.030) 04/30/17 22:27 Urine Protein 100 mg/dl mg/dL (Negative) 04/30/17 22:27 Urine Glucose (UA) 50 mg/dL (Negative) 04/30/17 22:27 Urine Ketones Neg mg/dL (Negative) 04/30/17 22:27 Urine Blood Lg (Negative) 04/30/17 22:27 Urine Nitrite Neg (Negative) 04/30/17 22:27 Urine Bilirubin Neg (Negative) 04/30/17 22:27 Urine Urobilinogen 2.0 mg/dL (<2.0) 04/30/17 22:27 Ur Leukocyte Esterase Lg (Negative) 04/30/17 22:27 Urine WBC (Auto) 114.0 /HPF (0.0-6.0) H 04/30/17 22:27 Urine RBC (Auto) > 182.0 /HPF (0.0-6.0) 04/30/17 22:27 U Epithel Cells (Auto) < 1.0 /HPF (0-13.0) 04/23/17 16:45 Urine Bacteria (Auto) 1+ /HPF (Negative) 04/30/17 22:27 Hyaline Casts 1 /LPF 04/18/17 20:46 Urine Mucus Few /HPF 04/30/17 22:27 Urine Creatinine 172.7 mg/dL (0.1-20.0) H 04/23/17 16:45 Protein/Creatinin Ratio 0.33 04/23/17 16:45 Urine Total Protein 57 mg/dL (5-11.8) H 04/23/17 16:45
[2017-05-01] MEDS ORDERED: KIONEX PO ONE (15:49)
--- NOTE | 2017-05-01 16:44 | Progress Note ---
Assessment and Plan - Patient Problems (1) Acute kidney injury Current Visit: Yes Status: Acute Plan to address problem: worsening renal function and decreased UOP note despite scales repositioning/ flushes. BUN/Cr elevated at 64/5.3mg/dl despite IV NS. repeat UA showed large blood, significant proteinuria, will obtain serologies for work up of acute GN. obtain renal biopsy in AM, NPO after midnight. discussed benefits/risks of renal biopsy, pt agrees to procedure. cont supportive care for THOMAS avoid nephrotoxins, NSAIDs, IV contrast. D/w RN (2) Chronic acquired lymphedema Current Visit: Yes Status: Acute Plan to address problem: Local measures like keeping lower extremities elevated, and use of compression stockings. (3) Essential (primary) hypertension Current Visit: Yes Status: Acute Plan to address problem: Follow up blood pressure on current medications. (4) Hyperkalemia Current Visit: Yes Status: Acute Plan to address problem: given kayexalate. cont 2g K renal diet (5) Type 2 diabetes mellitus with hyperglycemia Current Visit: Yes Status: Acute Plan to address problem: Blood sugar control per primary attending (6) Alkalosis, metabolic Current Visit: Yes Status: Acute Plan to address problem: likely secondary to contraction alkalosis. Diuretics on hold. (7) Obesity Current Visit: Yes Status: Chronic Subjective Date of service: 05/01/17 Principal diagnosis: acute kidney injury Interval history: Pt awake, alert, in NAD. decreased urine output noted, despite scales repositioning/flushes. started on cipro for UTI Objective - Vital Signs Vital signs: Vital Signs - 12hr 05/01/17 12:42 Pulse Rate 36 L - General Appearance General appearance: well-nourished, appears stated age, obese EENT: ATNC, PERRL, mucous membranes moist Neck: no JVD Respiratory: Present: Clear to Ascultation Cardiology: regular, S1S2 Gastrointestinal: normoactive bowel sounds, obese Integumentary: no rash, other (+ edema b/l LE ) Neurologic: no focal deficit, alert and oriented x3, strength 5/5, CN 3-12 intact Psychiatric: mood/affect appropriate, cooperative - Lab 04/20/17 05:07 05/01/17 04:57 Most recent lab results Calcium 7.9 mg/dL (8.4-10.2) L 05/01/17 04:57 Phosphorus 4.60 mg/dL (2.5-4.5) H 04/29/17 04:36 Magnesium 1.70 mg/dL (1.7-2.3) 04/29/17 04:36 Urine Creatinine 172.7 mg/dL (0.1-20.0) H 04/23/17 16:45 Urine Total Protein 57 mg/dL (5-11.8) H 04/23/17 16:45
[2017-05-01] MEDS: TYLENOL PO PRN (21:00)
[2017-05-02] MEDS ORDERED: TORADOL IV PRN (06:03)
[2017-05-02 08:35] LABS: INR 1.58 (0.87-1.13)
[2017-05-02] MEDS: NOVOLOG SUB-Q SCH ×4 (08:35→23:07)
[2017-05-02] MEDS: APRESOLINE PO SCH ×3 (08:36→21:13)
[2017-05-02] MEDS ORDERED: SUBLIMAZE IV ONE (09:10)
[2017-05-02] MEDS ORDERED: VERSED IV ONE (09:10)
[2017-05-02] MEDS: LOVENOX SUB-Q SCH (10:05)
[2017-05-02] MEDS: BABY ASPIRIN PO SCH (10:05)
--- NOTE | 2017-05-02 10:08 | Progress Note ---
Assessment and Plan Assessment and plan: Acute renal failure, - nephrology consult appreciated, - Renal ultrasound negative -Renal biopsy pending, hold ASA and lovenox - cont on NS, avoid nephrotoxins - Cr 5.3 yesterday hyperkalemia - Resolved k level 4.9 today -continue to monitor Bilateral lower extremity edema - likely from chronic venous stasis and renal failure - Echo is normal Uncontrolled Hypertension Controlled on current regimen cont coreg 6.25mg BID and hydralazine 100mg PO TID on current regimen DM2 on a sliding scale insulin, Accu-Chek before meals and at bedtime, ADA diet UTI will start on levaquin 250 mg po daily Urine culture pending Venous stasis ulcer - Wound care following Debility - PT evaluated and recommended subacute rehabilitation DVT prophylaxis - SCDs, Lovenox held until after renal biopsy Disposition -Continue inpatient care until creatinine starts to trend down. History Interval history: Pt seen and examined. Awake and alert very sad and crying this AM. Denies CP, SOB, NV. Nurse notes and labs reviewed. Hospitalist Physical - Constitutional Vitals: Temp Pulse Resp BP Pulse Ox 97.4 F L 42 L 22 139/47 98 05/02/17 00:11 05/02/17 05:00 05/02/17 00:11 05/02/17 00:11 05/02/17 00:11 General appearance: Present: mild distress, well-nourished, obese - EENT Eyes: Present: PERRL, EOM intact ENT: hearing intact, clear oral mucosa - Neck Neck: Present: supple, normal ROM - Respiratory Respiratory effort: normal Respiratory: bilateral: CTA - Cardiovascular Rhythm: regular Heart Sounds: Present: S1 & S2 - Extremities Extremities: no ischemia Extremity abnormal: edema Peripheral Pulses: within normal limits - Abdominal General gastrointestinal: soft, non-tender - Integumentary Integumentary: Present: warm, dry - Psychiatric Psychiatric: intact judgment & insight, depressed - Neurologic Neurologic: CNII-XII intact, moves all extremities - Allied Health Allied health notes reviewed: nursing Results - Labs CBC & Chem 7: 05/02/17 12:20 05/03/17 05:10 Labs: Laboratory Last Values WBC 7.3 K/mm3 (4.5-11.0) 04/20/17 05:07 RBC 3.49 M/mm3 (3.65-5.03) L 04/20/17 05:07 Hgb 9.3 gm/dl (11.8-15.2) L 04/20/17 05:07 Hct 28.7 % (35.5-45.6) L 04/20/17 05:07 MCV 82 fl (84-94) L 04/20/17 05:07 MCH 27 pg (28-32) L 04/20/17 05:07 MCHC 33 % (32-34) 04/20/17 05:07 RDW 14.5 % (13.2-15.2) 04/20/17 05:07 Plt Count 296 K/mm3 (140-440) 04/20/17 05:07 Lymph % (Auto) 20.3 % (13.4-35.0) 04/20/17 05:07 [place] % (Auto) 9.7 % (0.0-7.3) H 04/20/17 05:07 Eos % (Auto) 4.4 % (0.0-4.3) H 04/20/17 05:07 Baso % (Auto) 0.5 % (0.0-1.8) 04/20/17 05:07 Lymph # 1.5 K/mm3 (1.2-5.4) 04/20/17 05:07 [place] # 0.7 K/mm3 (0.0-0.8) 04/20/17 05:07 Eos # 0.3 K/mm3 (0.0-0.4) 04/20/17 05:07 Baso # 0.0 K/mm3 (0.0-0.1) 04/20/17 05:07 Seg Neutrophils % 65.1 % (40.0-70.0) 04/20/17 05:07 Seg Neutrophils # 4.8 K/mm3 (1.8-7.7) 04/20/17 05:07 PT 19.8 Sec. (12.2-14.9) H 05/02/17 07:38 INR 1.58 (0.87-1.13) H 05/02/17 07:38 APTT 39.2 Sec. (24.2-36.6) H 04/18/17 17:14 Sodium 136 mmol/L (137-145) L 05/01/17 04:57 Potassium 5.1 mmol/L (3.6-5.0) H 05/01/17 04:57 Chloride 93.5 mmol/L (98-107) L 05/01/17 04:57 Carbon Dioxide 27 mmol/L (22-30) 05/01/17 04:57 Anion Gap 21 mmol/L 05/01/17 04:57 BUN 64 mg/dL (9-20) H 05/01/17 04:57 Creatinine 5.3 mg/dL (0.8-1.5) H 05/01/17 04:57 Estimated GFR 13 ml/min 05/01/17 04:57 BUN/Creatinine Ratio 12 % 05/01/17 04:57 Glucose 112 mg/dL (75-100) H 05/01/17 04:57 POC Glucose 84 (70-105) 05/02/17 07:16 Calcium 7.9 mg/dL (8.4-10.2) L 05/01/17 04:57 Phosphorus 4.60 mg/dL (2.5-4.5) H 04/29/17 04:36 Magnesium 1.70 mg/dL (1.7-2.3) 04/29/17 04:36 Total Bilirubin 0.40 mg/dL (0.1-1.2) 05/01/17 04:57 AST 36 units/L (5-40) 05/01/17 04:57 ALT 31 units/L (7-56) 05/01/17 04:57 Alkaline Phosphatase 255 units/L (35-129) H 05/01/17 04:57 Total Creatine Kinase 277 units/L (55-170) H 04/19/17 12:30 CK-MB (CK-2) 7.4 ng/mL (0.0-4.0) H 04/19/17 12:30 CK-MB (CK-2) Rel Index 2.6 (0-4) 04/19/17 12:30 Troponin T 0.115 ng/mL (0.00-0.029) H* 04/19/17 12:30 NT-Pro-B Natriuret Pep 3484 pg/mL (0-900) H 04/18/17 17:14 Total Protein 7.1 g/dL (6.3-8.2) 05/01/17 04:57 Albumin 3.1 g/dL (3.9-5) L 05/01/17 04:57 Albumin/Globulin Ratio 0.8 % 05/01/17 04:57 Triglycerides 81 mg/dL (2-149) 04/18/17 17:14 Cholesterol 132 mg/dL (50-199) 04/18/17 17:14 LDL Cholesterol Direct 80 mg/dL (50-130) 04/18/17 17:14 HDL Cholesterol 36 mg/dL (40-59) L 04/18/17 17:14 Cholesterol/HDL Ratio 3.66 % 04/18/17 17:14 Urine Color [place]thel (Yellow) 04/30/17 22:27 Urine Turbidity Clear (Clear) 04/30/17 22:27 Urine pH 5.0 (5.0-7.0) 04/30/17 22:27 Ur Specific [place] 1.021 (1.003-1.030) 04/30/17 22:27 Urine Protein 100 mg/dl mg/dL (Negative) 04/30/17 22:27 Urine Glucose (UA) 50 mg/dL (Negative) 04/30/17 22:27 Urine Ketones Neg mg/dL (Negative) 04/30/17 22:27 Urine Blood Lg (Negative) 04/30/17 22:27 Urine Nitrite Neg (Negative) 04/30/17 22:27 Urine Bilirubin Neg (Negative) 04/30/17 22:27 Urine Urobilinogen 2.0 mg/dL (<2.0) 04/30/17 22:27 Ur Leukocyte Esterase Lg (Negative) 04/30/17 22:27 Urine WBC (Auto) 114.0 /HPF (0.0-6.0) H 04/30/17 22:27 Urine RBC (Auto) > 182.0 /HPF (0.0-6.0) 04/30/17 22:27 U Epithel Cells (Auto) < 1.0 /HPF (0-13.0) 04/23/17 16:45 Urine Bacteria (Auto) 1+ /HPF (Negative) 04/30/17 22:27 Hyaline Casts 1 /LPF 04/18/17 20:46 Urine Mucus Few /HPF 04/30/17 22:27 Urine Creatinine 172.7 mg/dL (0.1-20.0) H 04/23/17 16:45 Protein/Creatinin Ratio 0.33 04/23/17 16:45 Urine Total Protein 57 mg/dL (5-11.8) H 04/23/17 16:45
[2017-05-02] MEDS: TYLENOL PO PRN (10:34)
[2017-05-02] MEDS: PEPCID PO SCH (10:35)
[2017-05-02] MEDS: LEVAQUIN PO SCH (10:35)
--- NOTE | 2017-05-02 10:56 | Progress Note ---
Assessment and Plan - Patient Problems (1) Acute kidney injury Current Visit: Yes Status: Acute Plan to address problem: worsening renal function and decreased UOP note despite scales repositioning/ flushes. last BUN/Cr elevated at 64/5.3mg/dl. repeat UA showed large blood, significant proteinuria; pending serologies for work up of acute GN. ASA/ lovenox on hold, renal biopsy postponed for tomorrow AM. cont supportive care for THOMAS avoid nephrotoxins, NSAIDs, IV contrast. D/w RN (2) Chronic acquired lymphedema Current Visit: Yes Status: Acute Plan to address problem: Local measures like keeping lower extremities elevated, and use of compression stockings. (3) Essential (primary) hypertension Current Visit: Yes Status: Acute Plan to address problem: Follow up blood pressure on current medications. (4) Hyperkalemia Current Visit: Yes Status: Acute Plan to address problem: s/p kayexalate. cont 2g K renal diet (5) Type 2 diabetes mellitus with hyperglycemia Current Visit: Yes Status: Acute Plan to address problem: Blood sugar control per primary attending (6) Alkalosis, metabolic Current Visit: Yes Status: Acute Plan to address problem: likely secondary to contraction alkalosis. Diuretics on hold. (7) Obesity Current Visit: Yes Status: Chronic Subjective Date of service: 05/02/17 Principal diagnosis: acute kidney injury Interval history: Pt awake, alert, in NAD. renal biopsy cancelled this AM, since pt was on ASA/ lovenox, which is on hold now. Objective - Vital Signs Vital signs: Vital Signs - 12hr 05/02/17 05/02/17 00:11 05:00 Temperature 97.4 F L Pulse Rate 43 L 42 L Respiratory 22 Rate Blood Pressure 139/47 O2 Sat by Pulse 98 Oximetry - General Appearance General appearance: well-nourished, appears stated age, obese EENT: ATNC, PERRL, mucous membranes moist Neck: no JVD Respiratory: Present: Decreased Breath Sounds Cardiology: regular, S1S2 Gastrointestinal: normoactive bowel sounds, obese Integumentary: no rash, other (+ edema ) Neurologic: no focal deficit, alert and oriented x3, strength 5/5, CN 3-12 intact Psychiatric: mood/affect appropriate, cooperative - Lab 04/20/17 05:07 05/01/17 04:57 Most recent lab results Calcium 7.9 mg/dL (8.4-10.2) L 05/01/17 04:57 Phosphorus 4.60 mg/dL (2.5-4.5) H 04/29/17 04:36 Magnesium 1.70 mg/dL (1.7-2.3) 04/29/17 04:36 Urine Creatinine 172.7 mg/dL (0.1-20.0) H 04/23/17 16:45 Urine Total Protein 57 mg/dL (5-11.8) H 04/23/17 16:45
[2017-05-02 12:47] LABS: Basophils % (Auto) 0.4 % (0.0-1.8); Eosinophils % (Auto) 1.6 % (0.0-4.3); Hemoglobin 8.3 gm/dl (11.8-15.2); Mean Corpuscular HGB Conc 33 % (32-34); Mean Corpuscular Hemoglobin 27 pg (28-32); Mean Corpuscular Volume 81 fl (84-94); Platelet Count 360 K/mm3 (140-440); Red Blood Count 3.09 M/mm3 (3.65-5.03); White Blood Count 9.3 K/mm3 (4.5-11.0)
[2017-05-02] MEDS ORDERED: VITAMIN K (ADULT ONLY) 10 MG in NACL 0.9% 50 ML IV ONE (13:29)
[2017-05-02] MEDS: NORCO 5/325 PO PRN (14:23)
[2017-05-03 06:27] LABS: INR 1.51 (0.87-1.13)
[2017-05-03 06:28] LABS: Partial Thromboplastin Time 32.3 Sec. (24.2-36.6)
[2017-05-03 06:36] LABS: Chloride 92.5 mmol/L (98-107); Potassium 4.9 mmol/L (3.6-5.0)
[2017-05-03] MEDS: NOVOLOG SUB-Q SCH ×4 (08:07→21:49)
[2017-05-03] MEDS: APRESOLINE PO SCH ×3 (08:28→21:44)
[2017-05-03] MEDS: BABY ASPIRIN PO SCH (11:04)
[2017-05-03] MEDS: LOVENOX SUB-Q SCH (11:04)
[2017-05-03] MEDS: NORCO 5/325 PO PRN ×2 (11:15→21:45)
[2017-05-03] MEDS: LEVAQUIN PO SCH (11:15)
[2017-05-03] MEDS: VITAMIN K (ADULT ONLY) SUB-Q SCH (11:15)
[2017-05-03] MEDS: PEPCID PO SCH (11:16)
--- NOTE | 2017-05-03 15:30 | Progress Note ---
Assessment and Plan Assessment and plan: Acute renal failure, - nephrology consult appreciated, - Renal ultrasound negative -Renal biopsy pending, hold ASA and lovenox -Vit K administered - cont on NS, avoid nephrotoxins - Cr 5.4 today hyperkalemia - k level 5.1 yesterday - CMP tomorrow Anemia -Hgb 8.3, down from 9.3 on 04/20 -Will continue to monitor, will transfuse if <7 Bilateral lower extremity edema - likely from chronic venous stasis and renal failure - Echo is normal Uncontrolled Hypertension cont coreg 6.25mg BID and hydralazine 100mg PO TID on current regimen DM2 on a sliding scale insulin, Accu-Chek before meals and at bedtime, ADA diet UTI will start on levaquin 250 mg po daily Urine culture pending Venous stasis ulcer - Wound care following Debility - PT evaluated and recommended subacute rehabilitation DVT prophylaxis - SCDs, Lovenox held until after renal biopsy Disposition -Continue inpatient care until creatinine starts to trend down. History Interval history: Pt seen and examined. Denies CP, SOB, NV. Nurse notes and labs reviewed. Labs and nursing notes reviewed Hospitalist Physical - Constitutional Vitals: Temp Pulse Resp BP Pulse Ox 97.5 F L 47 L 20 146/65 96 05/03/17 08:03 05/03/17 10:00 05/03/17 10:00 05/03/17 08:01 05/03/17 08:01 General appearance: Present: no acute distress, well-nourished, obese - EENT Eyes: Present: PERRL ENT: hearing intact, clear oral mucosa, other (Legally blind) - Neck Neck: Present: supple, normal ROM - Respiratory Respiratory effort: normal Respiratory: bilateral: CTA - Cardiovascular Rhythm: regular Heart Sounds: Present: S1 & S2 - Extremities Extremities: no ischemia Extremity abnormal: edema Peripheral Pulses: within normal limits - Abdominal General gastrointestinal: soft, non-tender - Integumentary Integumentary: Present: warm, dry - Psychiatric Psychiatric: appropriate mood/affect, cooperative, depressed - Neurologic Neurologic: CNII-XII intact, other - Allied Health Allied health notes reviewed: nursing Results - Labs CBC & Chem 7: 05/02/17 12:20 05/03/17 05:10 Labs: Laboratory Last Values WBC 9.3 K/mm3 (4.5-11.0) 12/19/17 12:20 RBC 3.09 M/mm3 (3.65-5.03) L 05/02/17 12:20 Hgb 8.3 gm/dl (11.8-15.2) L 05/02/17 12:20 Hct 25.0 % (35.5-45.6) L 05/02/17 12:20 MCV 81 fl (84-94) L 05/02/17 12:20 MCH 27 pg (28-32) L 05/02/17 12:20 MCHC 33 % (32-34) 05/02/17 12:20 RDW 15.0 % (13.2-15.2) 05/02/17 12:20 Plt Count 360 K/mm3 (140-440) 05/02/17 12:20 Lymph % (Auto) 15.6 % (13.4-35.0) 05/02/17 12:20 [place] % (Auto) 11.5 % (0.0-7.3) H 05/02/17 12:20 Eos % (Auto) 1.6 % (0.0-4.3) 05/02/17 12:20 Baso % (Auto) 0.4 % (0.0-1.8) 05/02/17 12:20 Lymph # 1.4 K/mm3 (1.2-5.4) 05/02/17 12:20 [place] # 1.1 K/mm3 (0.0-0.8) H 05/02/17 12:20 Eos # 0.1 K/mm3 (0.0-0.4) 05/02/17 12:20 Baso # 0.0 K/mm3 (0.0-0.1) 05/02/17 12:20 Seg Neutrophils % 70.9 % (40.0-70.0) H 05/02/17 12:20 Seg Neutrophils # 6.6 K/mm3 (1.8-7.7) 05/02/17 12:20 PT 19.0 Sec. (12.2-14.9) H 05/03/17 05:10 INR 1.51 (0.87-1.13) H 05/03/17 05:10 APTT 32.3 Sec. (24.2-36.6) 05/03/17 05:10 Sodium 136 mmol/L (137-145) L 05/03/17 05:10 Potassium 4.9 mmol/L (3.6-5.0) 05/03/17 05:10 Chloride 92.5 mmol/L (98-107) L 05/03/17 05:10 Carbon Dioxide 24 mmol/L (22-30) 05/03/17 05:10 Anion Gap 24 mmol/L 05/03/17 05:10 BUN 80 mg/dL (9-20) H 05/03/17 05:10 Creatinine 5.4 mg/dL (0.8-1.5) H 05/03/17 05:10 Estimated GFR 13 ml/min 05/03/17 05:10 BUN/Creatinine Ratio 15 % 05/03/17 05:10 Glucose 98 mg/dL (75-100) 05/03/17 05:10 POC Glucose 112 (70-105) H 05/03/17 12:16 Calcium 8.0 mg/dL (8.4-10.2) L 05/03/17 05:10 Phosphorus 4.60 mg/dL (2.5-4.5) H 04/29/17 04:36 Magnesium 1.70 mg/dL (1.7-2.3) 04/29/17 04:36 Total Bilirubin 0.40 mg/dL (0.1-1.2) 05/01/17 04:57 AST 36 units/L (5-40) 05/01/17 04:57 ALT 31 units/L (7-56) 05/01/17 04:57 Alkaline Phosphatase 255 units/L (35-129) H 05/01/17 04:57 Total Creatine Kinase 277 units/L (55-170) H 04/19/17 12:30 CK-MB (CK-2) 7.4 ng/mL (0.0-4.0) H 04/19/17 12:30 CK-MB (CK-2) Rel Index 2.6 (0-4) 04/19/17 12:30 Troponin T 0.115 ng/mL (0.00-0.029) H* 04/19/17 12:30 NT-Pro-B Natriuret Pep 3484 pg/mL (0-900) H 04/18/17 17:14 Total Protein 7.1 g/dL (6.3-8.2) 05/01/17 04:57 Albumin 3.1 g/dL (3.9-5) L 05/01/17 04:57 Albumin/Globulin Ratio 0.8 % 05/01/17 04:57 Triglycerides 81 mg/dL (2-149) 04/18/17 17:14 Cholesterol 132 mg/dL (50-199) 04/18/17 17:14 LDL Cholesterol Direct 80 mg/dL (50-130) 04/18/17 17:14 HDL Cholesterol 36 mg/dL (40-59) L 04/18/17 17:14 Cholesterol/HDL Ratio 3.66 % 04/18/17 17:14 Urine Color Ethel (Yellow) 04/30/17 22:27 Urine Turbidity Clear (Clear) 04/30/17 22:27 Urine pH 5.0 (5.0-7.0) 04/30/17 22:27 Ur Specific [place] 1.021 (1.003-1.030) 04/30/17 22:27 Urine Protein 100 mg/dl mg/dL (Negative) 04/30/17 22:27 Urine Glucose (UA) 50 mg/dL (Negative) 04/30/17 22:27 Urine Ketones Neg mg/dL (Negative) 04/30/17 22:27 Urine Blood Lg (Negative) 04/30/17 22:27 Urine Nitrite Neg (Negative) 04/30/17 22:27 Urine Bilirubin Neg (Negative) 04/30/17 22:27 Urine Urobilinogen 2.0 mg/dL (<2.0) 04/30/17 22:27 Ur Leukocyte Esterase Lg (Negative) 04/30/17 22:27 Urine WBC (Auto) 114.0 /HPF (0.0-6.0) H 04/30/17 22:27 Urine RBC (Auto) > 182.0 /HPF (0.0-6.0) 04/30/17 22:27 U Epithel Cells (Auto) < 1.0 /HPF (0-13.0) 04/23/17 16:45 Urine Bacteria (Auto) 1+ /HPF (Negative) 04/30/17 22:27 Hyaline Casts 1 /LPF 04/18/17 20:46 Urine Mucus Few /HPF 04/30/17 22:27 Urine Creatinine 172.7 mg/dL (0.1-20.0) H 04/23/17 16:45 Protein/Creatinin Ratio 0.33 04/23/17 16:45 Urine Total Protein 57 mg/dL (5-11.8) H 04/23/17 16:45 Complement C3 145 mg/dL (90-180) 05/01/17 04:57 Complement C4 33 mg/dL (16-47) 05/01/17 04:57 Hepatitis A IgM Ab Non-reactive (NonReactive) 05/03/17 09:36 Hep Bs Antigen Non-reactive (Negative) 05/03/17 09:36 Hep B Core IgM Ab Non-reactive (NonReactive) 05/03/17 09:36 Hepatitis C Antibody Non-reactive (NonReactive) 05/03/17 09:36
[2017-05-03 20:29] LABS: Myeloperoxidase Antibody <1.0 AI (<1.0)
[2017-05-04 07:26] LABS: INR 1.42 (0.87-1.13)
[2017-05-04 07:27] LABS: Partial Thromboplastin Time 32.4 Sec. (24.2-36.6)
[2017-05-04] MEDS: NOVOLOG SUB-Q SCH ×3 (07:42→22:32)
[2017-05-04] MEDS: APRESOLINE PO SCH ×3 (09:42→22:32)
[2017-05-04] MEDS: LEVAQUIN PO SCH (09:50)
[2017-05-04] MEDS: PEPCID PO SCH (09:50)
[2017-05-04] MEDS ORDERED: SUBLIMAZE ONE (09:58)
[2017-05-04] MEDS ORDERED: VERSED IV ONE (09:58)
[2017-05-04] MEDS: VITAMIN K (ADULT ONLY) SUB-Q SCH (10:04)
[2017-05-04] MEDS: LOVENOX SUB-Q SCH (10:55)
--- NOTE | 2017-05-04 12:00 | Progress Note ---
<ARMINDA JO - Last Filed: 05/04/17 12:43> Assessment and Plan Assessment and plan: Acute renal failure, - nephrology consult appreciated, - Renal ultrasound negative -Renal biopsy pending, hold ASA and lovenox -Vitamin K administered yesterday, INR 1.42 today - cont on NS, avoid nephrotoxins - Cr 5.4 yesterday hyperkalemia - Resolved -K level 4.9 yesterday - will continue to monitor Anemia Hgb 8.3 yesterday, down from 9.3 on 04/20 CBC in am, will transfuse if <7 Bilateral lower extremity edema - likely from chronic venous stasis and renal failure - Echo is normal Uncontrolled Hypertension -Controlled on current regimen -cont coreg 6.25mg BID and hydralazine 100mg PO TID on current regimen DM2 on a sliding scale insulin, -Accu-Chek before meals and at bedtime, ADA diet UTI -Urine grew Serratia Marcescens -Sensitive to levaquin 250 mg po daily, day 4 of 7, continue until 05/07/2017 Venous stasis ulcer - Wound care following Debility - PT evaluated and recommended subacute rehabilitation DVT prophylaxis - SCDs, Lovenox held until after renal biopsy Disposition -Continue inpatient care until creatinine starts to trend down. History Interval history: Pt seen and examined. Awake and alert denies CP, SOB, NV. Nurse notes and labs reviewed. Hospitalist Physical - Constitutional Vitals: Temp Pulse Resp BP Pulse Ox 97.6 F 54 L 20 158/59 97 05/04/17 07:33 05/04/17 07:33 05/04/17 07:33 05/04/17 07:33 05/04/17 07:33 General appearance: Present: no acute distress, well-nourished, obese - EENT Eyes: Present: PERRL, EOM intact ENT: hearing intact, clear oral mucosa - Neck Neck: Present: supple, normal ROM - Respiratory Respiratory effort: normal Respiratory: bilateral: CTA - Cardiovascular Rhythm: regular Heart Sounds: Present: S1 & S2 - Extremities Extremities: no ischemia Extremity abnormal: edema - Abdominal General gastrointestinal: soft, non-tender - Integumentary Integumentary: Present: clear, warm, dry - Psychiatric Psychiatric: appropriate mood/affect, cooperative - Neurologic Neurologic: CNII-XII intact, moves all extremities - Allied Health Allied health notes reviewed: nursing Results - Labs CBC & Chem 7: 05/02/17 12:20 05/03/17 05:10 Labs: Laboratory Last Values WBC 9.3 K/mm3 (4.5-11.0) 05/02/17 12:20 RBC 3.09 M/mm3 (3.65-5.03) L 05/02/17 12:20 Hgb 8.3 gm/dl (11.8-15.2) L 05/02/17 12:20 Hct 25.0 % (35.5-45.6) L 05/02/17 12:20 MCV 81 fl (84-94) L 05/02/17 12:20 MCH 27 pg (28-32) L 05/02/17 12:20 MCHC 33 % (32-34) 05/02/17 12:20 RDW 15.0 % (13.2-15.2) 05/02/17 12:20 Plt Count 360 K/mm3 (140-440) 05/02/17 12:20 Lymph % (Auto) 15.6 % (13.4-35.0) 05/02/17 12:20 [place] % (Auto) 11.5 % (0.0-7.3) H 05/02/17 12:20 Eos % (Auto) 1.6 % (0.0-4.3) 05/02/17 12:20 Baso % (Auto) 0.4 % (0.0-1.8) 05/02/17 12:20 Lymph # 1.4 K/mm3 (1.2-5.4) 05/02/17 12:20 [place] # 1.1 K/mm3 (0.0-0.8) H 05/02/17 12:20 Eos # 0.1 K/mm3 (0.0-0.4) 05/02/17 12:20 Baso # 0.0 K/mm3 (0.0-0.1) 05/02/17 12:20 Seg Neutrophils % 70.9 % (40.0-70.0) H 05/02/17 12:20 Seg Neutrophils # 6.6 K/mm3 (1.8-7.7) 05/02/17 12:20 PT 18.1 Sec. (12.2-14.9) H 05/04/17 06:57 INR 1.42 (0.87-1.13) H 05/04/17 06:57 APTT 32.4 Sec. (24.2-36.6) 05/04/17 06:57 Sodium 136 mmol/L (137-145) L 05/03/17 05:10 Potassium 4.9 mmol/L (3.6-5.0) 05/03/17 05:10 Chloride 92.5 mmol/L (98-107) L 05/03/17 05:10 Carbon Dioxide 24 mmol/L (22-30) 05/03/17 05:10 Anion Gap 24 mmol/L 05/03/17 05:10 BUN 80 mg/dL (9-20) H 05/03/17 05:10 Creatinine 5.4 mg/dL (0.8-1.5) H 05/03/17 05:10 Estimated GFR 13 ml/min 05/03/17 05:10 BUN/Creatinine Ratio 15 % 05/03/17 05:10 Glucose 98 mg/dL (75-100) 05/03/17 05:10 POC Glucose 105 (70-105) 05/04/17 07:40 Calcium 8.0 mg/dL (8.4-10.2) L 05/03/17 05:10 Phosphorus 4.60 mg/dL (2.5-4.5) H 04/29/17 04:36 Magnesium 1.70 mg/dL (1.7-2.3) 04/29/17 04:36 Total Bilirubin 0.40 mg/dL (0.1-1.2) 05/01/17 04:57 AST 36 units/L (5-40) 05/01/17 04:57 ALT 31 units/L (7-56) 05/01/17 04:57 Alkaline Phosphatase 255 units/L (35-129) H 05/01/17 04:57 Total Creatine Kinase 277 units/L (55-170) H 04/19/17 12:30 CK-MB (CK-2) 7.4 ng/mL (0.0-4.0) H 04/19/17 12:30 CK-MB (CK-2) Rel Index 2.6 (0-4) 04/19/17 12:30 Troponin T 0.115 ng/mL (0.00-0.029) H* 04/19/17 12:30 NT-Pro-B Natriuret Pep 3484 pg/mL (0-900) H 04/18/17 17:14 Total Protein 7.1 g/dL (6.3-8.2) 05/01/17 04:57 Albumin 3.1 g/dL (3.9-5) L 05/01/17 04:57 Albumin/Globulin Ratio 0.8 % 05/01/17 04:57 Triglycerides 81 mg/dL (2-149) 04/18/17 17:14 Cholesterol 132 mg/dL (50-199) 04/18/17 17:14 LDL Cholesterol Direct 80 mg/dL (50-130) 04/18/17 17:14 HDL Cholesterol 36 mg/dL (40-59) L 04/18/17 17:14 Cholesterol/HDL Ratio 3.66 % 04/18/17 17:14 Urine Color Ethel (Yellow) 04/30/17 22:27 Urine Turbidity Clear (Clear) 04/30/17 22:27 Urine pH 5.0 (5.0-7.0) 04/30/17 22:27 Ur Specific [place] 1.021 (1.003-1.030) 04/30/17 22:27 Urine Protein 100 mg/dl mg/dL (Negative) 04/30/17 22:27 Urine Glucose (UA) 50 mg/dL (Negative) 04/30/17 22:27 Urine Ketones Neg mg/dL (Negative) 04/30/17 22:27 Urine Blood Lg (Negative) 04/30/17 22:27 Urine Nitrite Neg (Negative) 04/30/17 22:27 Urine Bilirubin Neg (Negative) 04/30/17 22:27 Urine Urobilinogen 2.0 mg/dL (<2.0) 04/30/17 22:27 Ur Leukocyte Esterase Lg (Negative) 04/30/17 22:27 Urine WBC (Auto) 114.0 /HPF (0.0-6.0) H 04/30/17 22:27 Urine RBC (Auto) > 182.0 /HPF (0.0-6.0) 04/30/17 22:27 U Epithel Cells (Auto) < 1.0 /HPF (0-13.0) 04/23/17 16:45 Urine Bacteria (Auto) 1+ /HPF (Negative) 04/30/17 22:27 Hyaline Casts 1 /LPF 04/18/17 20:46 Urine Mucus Few /HPF 04/30/17 22:27 Urine Creatinine 172.7 mg/dL (0.1-20.0) H 04/23/17 16:45 Protein/Creatinin Ratio 0.33 04/23/17 16:45 Urine Total Protein 57 mg/dL (5-11.8) H 04/23/17 16:45 Proteinase 3 (PR3) Ab <1.0 AI (<1.0) 05/01/17 04:57 Myeloperoxidase Ab <1.0 AI (<1.0) 05/01/17 04:57 Glomerular Base Mem IgG <1.0 AI (<1.0) 05/01/17 04:57 Complement C3 145 mg/dL (90-180) 05/01/17 04:57 Complement C4 33 mg/dL (16-47) 05/01/17 04:57 Hepatitis A IgM Ab Non-reactive (NonReactive) 05/03/17 09:36 Hep Bs Antigen Non-reactive (Negative) 05/03/17 09:36 Hep B Core IgM Ab Non-reactive (NonReactive) 05/03/17 09:36 Hepatitis C Antibody Non-reactive (NonReactive) 05/03/17 09:36 <HANK VILLASENOR M - Last Filed: 05/05/17 12:08> Hospitalist Physical - Constitutional Vitals: Temp Pulse Resp BP Pulse Ox 97.8 F 63 18 160/55 97 05/05/17 04:10 05/05/17 05:00 05/05/17 04:10 05/05/17 04:10 05/05/17 07:46 Results - Labs CBC & Chem 7: 05/02/17 12:20 05/05/17 04:37 Labs: Laboratory Last Values WBC 9.3 K/mm3 (4.5-11.0) 05/02/17 12:20 RBC 3.09 M/mm3 (3.65-5.03) L 05/02/17 12:20 Hgb 8.3 gm/dl (11.8-15.2) L 05/02/17 12:20 Hct 25.0 % (35.5-45.6) L 05/02/17 12:20 MCV 81 fl (84-94) L 05/02/17 12:20 MCH 27 pg (28-32) L 05/02/17 12:20 MCHC 33 % (32-34) 05/02/17 12:20 RDW 15.0 % (13.2-15.2) 05/02/17 12:20 Plt Count 360 K/mm3 (140-440) 05/02/17 12:20 Lymph % (Auto) 15.6 % (13.4-35.0) 05/02/17 12:20 [place] % (Auto) 11.5 % (0.0-7.3) H 05/02/17 12:20 Eos % (Auto) 1.6 % (0.0-4.3) 05/02/17 12:20 Baso % (Auto) 0.4 % (0.0-1.8) 05/02/17 12:20 Lymph # 1.4 K/mm3 (1.2-5.4) 05/02/17 12:20 [place] # 1.1 K/mm3 (0.0-0.8) H 05/02/17 12:20 Eos # 0.1 K/mm3 (0.0-0.4) 05/02/17 12:20 Baso # 0.0 K/mm3 (0.0-0.1) 05/02/17 12:20 Seg Neutrophils % 70.9 % (40.0-70.0) H 05/02/17 12:20 Seg Neutrophils # 6.6 K/mm3 (1.8-7.7) 05/02/17 12:20 PT 18.1 Sec. (12.2-14.9) H 05/04/17 06:57 INR 1.42 (0.87-1.13) H 05/04/17 06:57 APTT 32.4 Sec. (24.2-36.6) 05/04/17 06:57 Sodium 136 mmol/L (137-145) L 05/05/17 04:37 Potassium 4.8 mmol/L (3.6-5.0) 05/05/17 04:37 Chloride 95.3 mmol/L (98-107) L 05/05/17 04:37 Carbon Dioxide 25 mmol/L (22-30) 05/05/17 04:37 Anion Gap 21 mmol/L 05/05/17 04:37 BUN 78 mg/dL (9-20) H 05/05/17 04:37 Creatinine 3.7 mg/dL (0.8-1.5) H 05/05/17 04:37 Estimated GFR 20 ml/min 05/05/17 04:37 BUN/Creatinine Ratio 21 % 05/05/17 04:37 Glucose 106 mg/dL (75-100) H 05/05/17 04:37 POC Glucose 106 (70-105) H 05/05/17 08:08 Calcium 8.2 mg/dL (8.4-10.2) L 05/05/17 04:37 Phosphorus 4.60 mg/dL (2.5-4.5) H 04/29/17 04:36 Magnesium 1.70 mg/dL (1.7-2.3) 04/29/17 04:36 Total Bilirubin 0.40 mg/dL (0.1-1.2) 05/01/17 04:57 AST 36 units/L (5-40) 05/01/17 04:57 ALT 31 units/L (7-56) 05/01/17 04:57 Alkaline Phosphatase 255 units/L (35-129) H 05/01/17 04:57 Total Creatine Kinase 277 units/L (55-170) H 04/19/17 12:30 CK-MB (CK-2) 7.4 ng/mL (0.0-4.0) H 04/19/17 12:30 CK-MB (CK-2) Rel Index 2.6 (0-4) 04/19/17 12:30 Troponin T 0.115 ng/mL (0.00-0.029) H* 04/19/17 12:30 NT-Pro-B Natriuret Pep 3484 pg/mL (0-900) H 04/18/17 17:14 Total Protein 7.1 g/dL (6.3-8.2) 05/01/17 04:57 Albumin 3.1 g/dL (3.9-5) L 05/01/17 04:57 Albumin/Globulin Ratio 0.8 % 05/01/17 04:57 Triglycerides 81 mg/dL (2-149) 04/18/17 17:14 Cholesterol 132 mg/dL (50-199) 04/18/17 17:14 LDL Cholesterol Direct 80 mg/dL (50-130) 04/18/17 17:14 HDL Cholesterol 36 mg/dL (40-59) L 04/18/17 17:14 Cholesterol/HDL Ratio 3.66 % 04/18/17 17:14 Urine Color [place] (Yellow) 04/30/17 22:27 Urine Turbidity Clear (Clear) 04/30/17 22:27 Urine pH 5.0 (5.0-7.0) 04/30/17 22:27 Ur Specific [place] 1.021 (1.003-1.030) 04/30/17 22:27 Urine Protein 100 mg/dl mg/dL (Negative) 04/30/17 22:27 Urine Glucose (UA) 50 mg/dL (Negative) 04/30/17 22:27 Urine Ketones Neg mg/dL (Negative) 04/30/17 22:27 Urine Blood Lg (Negative) 04/30/17 22:27 Urine Nitrite Neg (Negative) 04/30/17 22:27 Urine Bilirubin Neg (Negative) 04/30/17 22:27 Urine Urobilinogen 2.0 mg/dL (<2.0) 04/30/17 22:27 Ur Leukocyte Esterase Lg (Negative) 04/30/17 22:27 Urine WBC (Auto) 114.0 /HPF (0.0-6.0) H 04/30/17 22:27 Urine RBC (Auto) > 182.0 /HPF (0.0-6.0) 04/30/17 22:27 U Epithel Cells (Auto) < 1.0 /HPF (0-13.0) 04/23/17 16:45 Urine Bacteria (Auto) 1+ /HPF (Negative) 04/30/17 22:27 Hyaline Casts 1 /LPF 04/18/17 20:46 Urine Mucus Few /HPF 04/30/17 22:27 Urine Creatinine 172.7 mg/dL (0.1-20.0) H 04/23/17 16:45 Protein/Creatinin Ratio 0.33 04/23/17 16:45 Urine Total Protein 57 mg/dL (5-11.8) H 04/23/17 16:45 SUZAN Screen Negative (Negative) 05/01/17 04:57 Proteinase 3 (PR3) Ab <1.0 AI (<1.0) 05/01/17 04:57 Myeloperoxidase Ab <1.0 AI (<1.0) 05/01/17 04:57 Glomerular Base Mem IgG <1.0 AI (<1.0) 05/01/17 04:57 Complement C3 145 mg/dL (90-180) 05/01/17 04:57 Complement C4 33 mg/dL (16-47) 05/01/17 04:57 Hepatitis A IgM Ab Non-reactive (NonReactive) 05/03/17 09:36 Hep Bs Antigen Non-reactive (Negative) 05/03/17 09:36 Hep B Core IgM Ab Non-reactive (NonReactive) 05/03/17 09:36 Hepatitis C Antibody Non-reactive (NonReactive) 05/03/17 09:36
[2017-05-04] MEDS: BABY ASPIRIN PO SCH (14:55)
--- NOTE | 2017-05-04 14:55 | Progress Note ---
Assessment and Plan - Patient Problems (1) Acute kidney injury Current Visit: Yes Status: Acute Plan to address problem: worsening renal function and decreased UOP note despite scales repositioning/ flushes. last BUN/Cr elevated at 64/5.3mg/dl. repeat UA showed large blood, significant proteinuria; ANCA/ Anti GBM/C3/4 negative, SUZAN pending. ASA/lovenox on hold, renal biopsy today. cont supportive care for THOMAS avoid nephrotoxins, NSAIDs, IV contrast. D/w RN (2) Chronic acquired lymphedema Current Visit: Yes Status: Acute Plan to address problem: Local measures like keeping lower extremities elevated, and use of compression stockings. (3) Essential (primary) hypertension Current Visit: Yes Status: Acute Plan to address problem: Follow up blood pressure on current medications. (4) Hyperkalemia Current Visit: Yes Status: Acute Plan to address problem: s/p kayexalate. cont 2g K renal diet (5) Type 2 diabetes mellitus with hyperglycemia Current Visit: Yes Status: Acute Plan to address problem: Blood sugar control per primary attending (6) Alkalosis, metabolic Current Visit: Yes Status: Acute Plan to address problem: likely secondary to contraction alkalosis. Diuretics on hold. (7) Obesity Current Visit: Yes Status: Chronic Subjective Date of service: 05/04/17 Principal diagnosis: acute kidney injury Interval history: Pt awake, alert, in NAD. awaiting renal biopsy Objective - Vital Signs Vital signs: Vital Signs - 12hr 05/04/17 05/04/17 05/04/17 04:33 04:40 04:43 Temperature 98.2 F 97.6 F Pulse Rate 56 L 93 H 51 L Respiratory 18 Rate Blood Pressure 171/58 109/60 O2 Sat by Pulse 97 98 Oximetry 05/04/17 05/04/17 07:33 11:30 Temperature 97.6 F 98.3 F Pulse Rate 54 L 55 L Respiratory 20 20 Rate Blood Pressure 158/59 125/48 O2 Sat by Pulse 97 98 Oximetry - General Appearance General appearance: well-developed, well-nourished, appears stated age EENT: ATNC, PERRL, mucous membranes moist Neck: no JVD Respiratory: Present: Clear to Ascultation Cardiology: regular, S1S2 Gastrointestinal: normoactive bowel sounds, obese Integumentary: no rash, other (++ edema ) Neurologic: no focal deficit, alert and oriented x3, strength 5/5, CN 3-12 intact Psychiatric: mood/affect appropriate, cooperative - Lab 05/02/17 12:20 05/03/17 05:10 Most recent lab results Calcium 8.0 mg/dL (8.4-10.2) L 05/03/17 05:10 Phosphorus 4.60 mg/dL (2.5-4.5) H 04/29/17 04:36 Magnesium 1.70 mg/dL (1.7-2.3) 04/29/17 04:36 Urine Creatinine 172.7 mg/dL (0.1-20.0) H 04/23/17 16:45 Urine Total Protein 57 mg/dL (5-11.8) H 04/23/17 16:45
[2017-05-04] MEDS ORDERED: VITAMIN K (ADULT ONLY) SUB-Q ONE (16:00)
[2017-05-04] MEDS: NORCO 5/325 PO PRN (22:31)
[2017-05-05 05:51] LABS: Calcium 8.2 mg/dL (8.4-10.2); Chloride 95.3 mmol/L (98-107); Potassium 4.8 mmol/L (3.6-5.0)
[2017-05-05] MEDS: NOVOLOG SUB-Q SCH ×4 (07:46→22:15)
[2017-05-05] MEDS: LOVENOX SUB-Q SCH (09:29)
[2017-05-05] MEDS: APRESOLINE PO SCH ×3 (09:30→22:15)
[2017-05-05] MEDS: PEPCID PO SCH (09:30)
[2017-05-05] MEDS: BABY ASPIRIN PO SCH (09:30)
[2017-05-05] MEDS: LEVAQUIN PO SCH (09:30)
--- NOTE | 2017-05-05 14:50 | Progress Note ---
Assessment and Plan - Patient Problems (1) Acute kidney injury Current Visit: Yes Status: Acute Plan to address problem: THOMAS possibly due to ATN, acute GN to be ruled out with repeat UA showed large blood, significant proteinuria; however ANCA/ Anti GBM/C3/4, SUZAN all negative. no renal biopsy available until next Tu due staffing issues. pt can resume ASA/ lovenox. Renal function started to improve with BUN/Cr to 78/3.7mg/dl, pt remains non-oluguric. cont supportive care for THOMAS avoid nephrotoxins, NSAIDs, IV contrast. Pt is otherwise stable for discharge to rehab from renal stand point with f/u in 1 week as outpt for THOMAS/CKD f/u. if renal function does not improve further to arrange renal biopsy as outpatient. D/w RN and case management (2) Chronic acquired lymphedema Current Visit: Yes Status: Acute Plan to address problem: Local measures like keeping lower extremities elevated, and use of compression stockings. (3) Essential (primary) hypertension Current Visit: Yes Status: Acute Plan to address problem: Follow up blood pressure on current medications. (4) Hyperkalemia Current Visit: Yes Status: Acute Plan to address problem: resolved s/p kayexalate. cont 2g K renal diet (5) Type 2 diabetes mellitus with hyperglycemia Current Visit: Yes Status: Acute Plan to address problem: Blood sugar control per primary attending (6) Alkalosis, metabolic Current Visit: Yes Status: Acute Plan to address problem: improved after holding diuretics. (7) Obesity Current Visit: Yes Status: Chronic Subjective Date of service: 05/05/17 Principal diagnosis: acute kidney injury Interval history: Pt awake, alert, in NAD. no staff available today for renal biopsy Objective - Vital Signs Vital signs: Vital Signs - 12hr 05/05/17 05/05/17 05/05/17 04:10 05:00 07:46 Temperature 97.8 F Pulse Rate 63 Respiratory 18 Rate Blood Pressure 160/55 O2 Sat by Pulse 97 Oximetry - General Appearance General appearance: well-nourished, appears stated age, chronically ill EENT: ATNC, PERRL, mucous membranes moist Neck: no JVD Respiratory: Present: Clear to Ascultation Cardiology: regular, S1S2 Gastrointestinal: normoactive bowel sounds Integumentary: no rash, other (+ edema ) Neurologic: no focal deficit, alert and oriented x3, strength 5/5 Psychiatric: mood/affect appropriate, cooperative - Lab 05/02/17 12:20 05/05/17 04:37 Most recent lab results Calcium 8.2 mg/dL (8.4-10.2) L 05/05/17 04:37 Phosphorus 4.60 mg/dL (2.5-4.5) H 04/29/17 04:36 Magnesium 1.70 mg/dL (1.7-2.3) 04/29/17 04:36 Urine Creatinine 172.7 mg/dL (0.1-20.0) H 04/23/17 16:45 Urine Total Protein 57 mg/dL (5-11.8) H 04/23/17 16:45
--- NOTE | 2017-05-05 15:22 | Discharge Summary ---
Providers - Providers Date of Admission: 04/18/17 23:28 Date of discharge: 05/05/17 Attending physician: HANK VILLASENOR MD 04/19/17 15:06 Consult to Wound/ET Nurse [CONS] Routine Reason For Exam: wound eval Physical Therapy Evaluation and Treat [CONS] Routine Comment: Reason For Exam: Debility 04/19/17 20:42 Consult to Wound/ET Nurse [CONS] Urgent Reason For Exam: wound eval 04/23/17 08:36 Consult to Physician [CONS] Routine Consulting Provider: FLO BARKLEY Reason For Exam: THOM[facility] Place consult to:: Nephrology Notified:: Trish BAH Phone number called:: Was contact made?: Yes If yes, spoke with:: [facility] Time called:: 08:46 04/28/17 15:57 Speech Therapy Evaluation and Treat [CONS] Routine Reason For Exam: coughing and choking whilst eating Primary care physician: BI TRI OPERATOR Hospitalization Condition: Stable Pertinent studies: Chest x-ray revealed that CHF is likely. Renal ultrasound showed centimeter left renal cysts otherwise normal. Hospital course: 71-year-old male the past medical history of obesity, CHF, diabetes, hypertension, and chronic lymphadenopathy presents to the hospital complaints of lower extremity edema and abdominal swelling. Symptoms progressively last several days despite compliance with medications. Patient complains of aching mild to moderate pain to bilateral extremities. Patient was treated with IV antibiotics, analgesics, antihypertensives, IV fluids, and vitamin K. Patient received Lovenox for DVT prophylaxis. Discharge diagnoses Acute renal failure Hyperkalemia Anemia Bilateral lower extremity edema Uncontrolled hypertension Diabetes mellitus on a sliding scale insulin UTI Venous stasis ulcer Debility DVT prophylaxis [id number] Core Measure Documentation - Palliative Care Palliative Care/ Comfort Measures: Not Applicable - Core Measures Any of the following diagnoses?: none Exam - Constitutional Vitals: Temp Pulse Resp BP Pulse Ox 97.8 F 63 18 160/55 97 05/05/17 04:10 05/05/17 05:00 05/05/17 04:10 05/05/17 04:10 05/05/17 07:46 General appearance: Present: no acute distress, well-nourished - EENT Eyes: Present: PERRL ENT: hearing intact, clear oral mucosa - Neck Neck: Present: supple, normal ROM - Respiratory Respiratory effort: normal Respiratory: bilateral: CTA - Cardiovascular Heart Sounds: Present: S1 & S2. Absent: rub, click - Extremities Extremities: pulses symmetrical Extremity abnormal: edema Peripheral Pulses: within normal limits - Abdominal General gastrointestinal: Present: soft, non-tender, non-distended, normal bowel sounds Male genitourinary: Present: deferred - Rectal Rectal Exam: deferred - Integumentary Integumentary: Present: clear, warm, dry - Musculoskeletal Musculoskeletal: gait normal, strength equal bilaterally - Psychiatric Psychiatric: appropriate mood/affect, intact judgment & insight - Neurologic Neurologic: CNII-XII intact, moves all extremities - Allied Health Allied health notes reviewed: nursing Plan Activity: fall precautions Weight Bearing Status: Weight Bear as Tolerated Diet: low fat, low cholesterol, low salt, diabetic Follow up with: PRIMARY CARE, [Primary Care Provider] - 7 Days Prescriptions: HYDROcodone/APAP 5-325 [[place] 5-325 mg TAB] 1 each PO Q6H PRN #7 tablet PRN Reason: Pain, Moderate (4-6)
[2017-05-05 20:07] VITALS: BP 167/57
== END 2017-05-05 22:20 | DRG 682 ==
LOC: ED 16:03 → 4A 23:28
PROVIDERS: ADMIT Internal Medicine; ATTEND Internal Medicine
DX: N17.0 Acute kidney failure with tubular necrosis (principal); I50.33 Acute on chronic diastolic (congestive) heart failure; Z68.41 Body mass index [BMI] 40.0-44.9, adult; N39.0 Urinary tract infection, site not specified; I11.0 Hypertensive heart disease with heart failure; I16.0 Hypertensive urgency; R53.81 Other malaise; L98.499 Non-pressure chronic ulcer of skin of other sites with unspecified severity; E66.01 Morbid (severe) obesity due to excess calories; Z79.4 Long term (current) use of insulin; Z82.49 Family history of ischemic heart disease and other diseases of the circulatory system; Z79.82 Long term (current) use of aspirin; E87.5 Hyperkalemia; E11.65 Type 2 diabetes mellitus with hyperglycemia; D64.9 Anemia, unspecified; I89.0 Lymphedema, not elsewhere classified
CPT/HCPCS: 36415; 71010; 76770; 80048; 80053; 80061; 80074; 81001; 82550; 82553; 82570; 82962; 83520; 83735; 83880; 84100; 84132; 84156; 84484; 85025; 85610; 85730; 86021; 86038; 86160; 87076; 87086; 87186; 93005; 93010; 93306; 96372; 96375; 96376; G8978-GP; G8979-GP; G8996-GN; G8997-GN; J1650; J1815; J1885; J1940; J2250; J3010; J3430; J7030